=== PATIENT | female | born 1945 | race Caucasian/White ===

== ENCOUNTER 2023-09-23 09:34 | Outpatient (CLI) | payer MEDICARE, MEDICAID, SELFPAY ==
--- NOTE | ~2023-09-23 | US_ITS ---
EXAMINATION: US biopsy lymph node DATE: 09/23/2023 10:48 INDICATION: Right neck lymphadenopathy. TECHNIQUE: The procedure including the risks, benefits, and alternatives was discussed with the patie nt. Risks discussed included bleeding and infection. The patient understood the risks and agreed to p roceed. The skin overlying the right neck was prepped and draped in usual sterile fashion. Anestheti c was administered with 1% lidocaine subcutaneously. An 18 gauge core biopsy needle was then used to obtain 6 core biopsy specimens under continuous sonographic guidance. The entry site was cleaned and dressed. There were no immediate complications. FINDINGS: Ultrasound images demonstrate the needle in a 10 x 10 x 9 mm spinal accessory chain node in right neck. IMPRESSION: 1. Ultrasound-guided core needle biopsy of a right spinal accessory chain lymph node. Reviewed, dictated and finalized at location A. T OF WAY SUPERVISOR
== END 2023-09-23 09:35 | disposition home or self-care (01) ==
LOC: ANHIMG 09:36
PROVIDERS: PCP Family Medicine; Visit Provider Otolaryngology
DX: R22.1 Localized swelling, mass and lump, neck (principal)
CPT/HCPCS: 38505; 76942; 88108; 88184; 88185; 88305; 88341; 88342; 88364; 88365

== ENCOUNTER 2023-10-02 14:51 | Outpatient (CLI) | payer MEDICARE, MEDICAID, SELFPAY ==
[2023-10-02 15:18] LABS: Basophils Absolute Auto 0.1 K/mm3 (0.0-0.1); Basophils Percent Auto 0.9 % (0.2-1.2); Eosinophils Absolute Auto 0.6 K/mm3 (0-0.3); Eosinophils Percent Auto 6.4 % (0-4.4); Hematocrit 36.1 % (37.0-47.0); Hemoglobin 11.3 g/dL (12.0-15.0); Immature Granulocyte Absolute 0.03 K/mm3 (0.00-0.031); Immature Granulocyte Percent A 0.3 % (0-0.5); Lymphocytes Absolute Auto 2.34 K/mm3 (0.9-3.2); Lymphocytes Percent Auto 25.1 % (18.3-44.2); Mean Corpuscular HGB Conc 31.3 g/dl (32-36); Mean Corpuscular Hemoglobin 30.5 pg (26-34); Mean Corpuscular Volume 97.3 fl (80-100); Mean Platelet Volume 8.9 fl (7.4-10.4); Monocytes Absolute Auto 0.7 K/mm3 (0.1-0.6); Monocytes Percent Auto 7.2 % (2.6-8.5); Neutrophils Absolute Auto 5.6 K/mm3 (1.3-6.7); Neutrophils Percent Auto 60.1 % (45.5-73.1); Platelet Count Result 384 k/mm3 (150-375); Red Blood Count 3.71 M/mm3 (4.2-5.4); Red Cell Distribution Width 14.6 % (11.5-14.5); White Blood Count 9.3 K/mm3 (4.5-10.0)
[2023-10-02 17:07] LABS: Alanine Aminotransferase 14 U/L (6-35); Albumin Level 3.5 g/dL (3.5-5.1); Alkaline Phosphatase 97 U/L (38-126); Anion Gap 2 mmol/L (8-16); Aspartate Amino Transferase 24 U/L (14-36); Bilirubin,Total 0.4 mg/dL (0.2-1.3); Blood Urea Nitrogen 16 mg/dL (7-17); Carbon Dioxide 27 mmol/L (22-30); Chloride 108 mmol/L (98-107); Estimated Glomerular Filt Rate > 60; Glucose 93 mg/dL (65-110); Lactate Dehydrogenase 188 U/L (120-246); Potassium 4.6 mmol/L (3.4-5.0); Sodium 137 mmol/L (137-145)
== END 2023-10-02 14:52 | disposition home or self-care (01) ==
PROVIDERS: PCP Family Medicine; Visit Provider Internal Medicine Hematology & Oncology
DX: C83.31 Diffuse large B-cell lymphoma, lymph nodes of head, face, and neck (principal)
CPT/HCPCS: 36415; 80053; 83615; 85025; 88184; 88185; 88237; 88271; 88275

== ENCOUNTER 2023-10-08 11:50 | Outpatient (CLI) | payer MEDICARE, MEDICAID, SELFPAY ==
--- NOTE | ~2023-10-08 | PE_ITS ---
EXAMINATION: PET skull to mid thigh DATE: 10/08/2023 14:31 INDICATION: Diffuse B-cell lymphoma. TECHNIQUE: Blood glucose level was 94 mg/dL. 11.322 mCi of 18-fluorodeoxyglucose (18-FDG) was adminis tered i.v. Low dose computed tomography (CT) images were acquired from the base of the brain to the p roximal thighs for attenuation correction and anatomic localization. Automated exposure control was e mployed. Dose-length product (DLP) was 1009 mGy-cm. Positron emission tomography (PET) images were ac quired in the same distribution. COMPARISON: None FINDINGS: Head/neck: There is a 14 mm mass in right parotid gland with increased activity, most likely a lymph node. There is increased activity in bilateral internal jugular, right spinal accessory, and right-si ded mandibular lymph nodes, some of which are enlarged. For example, a right spinal accessory node me asures 1.2 x 1.0 cm with maximum SUV of 37.2. Chest: The lungs demonstrate mild atelectasis. Calcified right lung nodules and calcified right hilar lymph nodes are consistent with old adenomatous disease. No pleural effusion. Cardiomegaly is noted. No pericardial effusion. There is a small sliding hiatal hernia. Abdomen/pelvis/proximal thighs: The liver demonstrates focal steatosis adjacent to the gallbladder fo ssa. The gallbladder, spleen, pancreas, and adrenal glands are normal. There are cysts in the kidneys measuring up to 16 mm on the left. Aortic atherosclerosis is noted. There are no dilated loops of lauren wel. The appendix is normal. There are no pathologically enlarged lymph nodes. There is no free intra peritoneal fluid. There are bilateral hip arthroplasties. IMPRESSION: 1. Cervical lymphadenopathy with increased activity, consistent with lymphoma. Reviewed, dictated and finalized at location E. E JAVA DEVELOPER
[2023-10-08 12:21] LABS: Glucose Point of Care 94 mg/dl (65-105)
== END 2023-10-08 11:51 | disposition home or self-care (01) ==
PROVIDERS: PCP Family Medicine; Visit Provider Internal Medicine Hematology & Oncology
DX: C83.31 Diffuse large B-cell lymphoma, lymph nodes of head, face, and neck (principal); R59.1 Generalized enlarged lymph nodes
CPT/HCPCS: 78815; A9552

== ENCOUNTER 2023-10-29 00:37 | Day surgery (SDC) | payer MEDICARE, MEDICAID, SELFPAY ==
--- NOTE | 2023-10-23 13:32 | PC.NURSE ---
Report to the Outpatient Waiting Room, entrance under the green pavilion located off [facility], at time ___1015____ on date __10/29/23 . Planned Procedure Time: _1215 . Time changes happen often and if your time is changed the preop area will call you the afternoon before. - You and your visitor will be asked to self-screen and do not enter if you have any COVID symptoms. - A mask is optional within the hospital at this time. Patients may have clear liquids (water, carbonated beverages, clear teas, apple juice) until 3 hours prior to surgery(9:15 am) with a maximum of 20 ounces. - No food from midnight until time of surgery - Infants may have breast milk until 4 hours before surgery, infant formula 6 hours prior to surgery. - Children will be allowed to drink immediately following surgery. If applicable, please bring a bottle or sippy cup to assist with drinking. Juice, water, soda, and popsicles are readily available. For infants on formula, please bring formula the day of surgery. Pacifiers are allowed. Take the following medications with a SIP of water the morning of surgery: ___HYDROCODONE IF NEEDED FOR PAIN DO NOT STOP ANY OF YOUR OTHER PRESCRIPTION MEDICATIONS PRIOR TO SURGERY ?EXCEPT THE FOLLOWING Medications to discontinue per physician __HOLD VITAMINS AND SUPPLEMENTS 3 DAYS PRE OP .LAST DOSE 10/25/23____PT STATES SHE IS GOING TO HOLD ASPIRIN (ON HER OWN) LAST DOSE 10/23/23. Date to take last dose Please no make-up, nail albanian, hairspray, perfume, deodorant, or body powder the day of surgery. No jewelry (including any body piercings) or valuables the day of surgery, leave them at home. Please take a shower or bath the night before, or the morning of, surgery with an antibacterial soap. Wear comfortable, loose fitting clothing. Children are encouraged to wear pajamas. - Jewelry must be removed prior to entering the operating room. Rings and piercings that are not removed may be cut off. - The hospital will not accept responsibility for valuables. - Please leave all valuables, including medications, at home the day of surgery. If you are going home after surgery, a licensed driver guide must drive you home. - NO public transportation without another adult if you receive anesthesia. - We recommend that an adult stay with you for 24 hours following discharge. - We also recommend that you do not drive, make important decision, drink alcoholic beverages, or take any drugs that were not prescribed by your health care provider for at least 24 hours after your discharge time. Follow any additional instructions given to you from your surgeon. If you or anyone in your household have experienced Covid symptoms in the past week, please notify your surgeon or the nurse liaison at the phone number below for possible testing. Telephone instructions given to __PT and asked if any additional questions and then verbalized understanding. Patient advised to call surgeon office or pre surgery nurse liaison [phone] if any additional questions.
[2023-10-23 13:40] VITALS: BMI 29.9
--- NOTE | 2023-10-27 15:01 | PM.IMHP ---
H&P: HPI History of Present Illness Date/Time: 10/27/23 15:01 Chief Complaint: Lymphoma/lymphadenopathy Narrative: planned procedure Review of Systems Review of Systems: All systems reviewed & are unremarkable except as noted in HPI and below [facility] Surgical History Surgical History H/O: hysterectomy History of hip replacement, total History of left knee replacement Family History Family History Mother Thyroid disorder Other Family history of arthritis Social History Social History Smoking status: Never smoker Alcohol intake: never Substance use: never Substance use type: does not use Lack of Transportation: No Lack of Food: Never True Current Housing: I Have Housing Concerned About Future Housing: No Difficulty Paying Gas/Electric Bills: No Difficulty Paying for Meds: No Currently Unemployed: No Education: Associate Degree Difficulty w/ Childcare or Family Care: No Living arrangements: alone Spiritual care concerns: No Meds Home Medications and Allergies Home Medications Medication Instructions Recorded Confirmed Type aspirin 81 mg chewable tablet 81 mg PO DAILY 08/28/23 10/25/23 History (Prasanna Chewable Low Dose Aspirin) citalopram 40 mg tablet 40 mg PO HS 08/28/23 10/25/23 History estradiol 2 mg tablet 2 mg PO DAILY 08/28/23 10/25/23 History hydrocodone 5 mg-acetaminophen 325 2 tablet PO DAILY PRN Pain 08/28/23 10/25/23 History mg tablet meloxicam 15 mg tablet 15 mg PO DAILY 08/28/23 10/25/23 History trazodone 100 mg tablet 100 mg PO QHS PRN Insomnia 08/28/23 10/25/23 History multivitamin 1 tablet PO DAILY 10/23/23 10/25/23 History multivitamin with minerals 1 tablet PO DAILY 10/23/23 10/25/23 History (Hair,Skin and Nails tablet) Allergies Allergy/AdvReac Type Severity Reaction Status Date / Time No Known Allergies Allergy Verified 10/25/23 10:25 Exam Narrative: bilateral neck lymphadenopathy right greater than left Assessment and Plan Assessment and plan (1) Lymphoma: Code(s): C85.90 - Non-Hodgkin lymphoma, unspecified, unspecified site Status: Acute Assessment and Plan: ?plan will be OR for right-sided excisional biopsy lymph node.? Risks discussed including paralysis of lip via injury to marginal mandibular nerve will go for a 2b 2a lymph node as well as damage the greater auricular.? Possible need for drain postoperative bleeding infection damage to surrounding structures.? Patient voiced understanding of these risks and agreed. damage to any structure the clavicles by myself. Damage to any structure in the injection and maintenance of anesthesia including vocal cord paralysis. (2) Lymphadenopathy: Code(s): R59.1 - Generalized enlarged lymph nodes Status: Acute
--- NOTE | 2023-10-28 15:28 | WPDANESEPPF ---
Anes - Initial Pre Proc Eval Procedure: Operation Date: 10/29/23 09:00 Proposed Procedures p Right Sided Cervical Lymph Node Excision - Desmond Bolden MD Date/Time: 10/28/23 15:28 Surgeon: Desmond Bolden MD Pre Op Diagnosis: lymphoma Patient Data Age: 78 Gender: F Height: 1.57 m Weight: 74.45 kg Allergies Allergy/AdvReac Type Severity Reaction Status Date / Time No Known Allergies Allergy Verified 10/29/23 08:26 Home Medications Medication Instructions Recorded Confirmed Type aspirin 81 mg chewable tablet 81 mg PO DAILY 08/28/23 10/29/23 History (Prasanna Chewable Low Dose Aspirin) citalopram 40 mg tablet 40 mg PO HS 08/28/23 10/25/23 History estradiol 2 mg tablet 2 mg PO DAILY 08/28/23 10/25/23 History hydrocodone 5 mg-acetaminophen 325 2 tablet PO DAILY PRN Pain 08/28/23 10/25/23 History mg tablet meloxicam 15 mg tablet 15 mg PO DAILY 08/28/23 10/25/23 History trazodone 100 mg tablet 100 mg PO QHS PRN Insomnia 08/28/23 10/25/23 History multivitamin 1 tablet PO DAILY 10/23/23 10/29/23 History multivitamin with minerals 1 tablet PO DAILY 10/23/23 10/25/23 History (Hair,Skin and Nails tablet) amoxicillin 500 mg capsule 500 mg PO ONCE 10/29/23 10/29/23 History oxycodone 5 mg tablet 5 mg PO Q12H PRN pain #10 tabs 10/29/23 Rx Patient hx anesthesia problems: none Family hx anesthesia problems: none Results Review: All pre-operative results and documents have been reviewed as part of the pre-operative evaluation. [facility] Past Medical History Medical History (Updated 10/29/23 @ 11:37 by Desmond Bolden MD) Anxiety Chronic, continuous use of opioids hydrocodone Lymphoma Surgical History Surgical History H/O: hysterectomy History of hip replacement, total History of left knee replacement Family History Family History Mother Thyroid disorder Other Family history of arthritis Social History Social History Smoking status: Never smoker Alcohol intake: never Substance use: never Substance use type: does not use Lack of Transportation: No Lack of Food: Never True Current Housing: I Have Housing Concerned About Future Housing: No Difficulty Paying Gas/Electric Bills: No Difficulty Paying for Meds: No Currently Unemployed: No Education: Associate Degree Difficulty w/ Childcare or Family Care: No Living arrangements: alone Spiritual care concerns: No Anes - Eval Final PreProcedure Day of Procedure 10/28/23 15:28 Patient weight: obese Heart: regular rate and rhythm Lungs: clear to auscultation Airway: Mallampati scale class II Neurological: alert and oriented Last oral intake: >/= 8 hours ASA classification: III Emergent: no Anesthetic plan: proceed Anesthesia type and monitoring: general ETT and standard monitoring Results Review: All pre-operative results and documents have been reviewed as part of the pre-operative evaluation. Informed Consent: The patient's anesthetic plan and its attendant risks and benefits were discussed with the patient/family/POA. Questions were solicited and answers provided to the satisfaction of the patient/family/POA.
[2023-10-29] VITALS (12 sets, daily range): BP systolic 112–154; BP diastolic 58–90; PULSE 69–83; RESP 14–21; TEMP 36.2–36.7; O2SAT 92–98
--- NOTE | 2023-10-29 07:17 | WPDHPUPDATE1 ---
History and Physical Update Update Date/Time: 10/29/23 07:17 History and Physical has been reviewed, including an updated exam of the patient. There are NO changes in the patient's condition. Risks, benefits, and alternatives have been discussed and questions answered. Patient agrees to proceed with procedure.
[2023-10-29] MEDS: LACTATED RINGERS 1,000 ML 30 ML IV CONT (07:35)
[2023-10-29] MEDS: ceFAZolin 2 GM/D5W 50 ML 2 GM/50 ML BAG IVPB (09:56)
[2023-10-29] MEDS: LIDO 1%/EPINEPHRINE 1:100,000 50 ML VIAL INFILTRATE (10:02)
--- NOTE | 2023-10-29 11:38 | P.OP_ITS ---
Procedure Note - Detailed Date of Procedure 10/29/23 Pre-op Diagnosis lymphoma Post-op Diagnosis Same Procedure Performed Right-sided excisional biopsy of lymph node Surgeon Desmond Bolden MD Anesthesia General Indications see above Findings large matted mass of lymphoma in the right eye was about level [address] the 3 technically. Excised about 0 10 x 15 mm cube of tissue for pathologic analysis Description of Procedure patient identified consent verified preop. Patient brought to the operating room. CT scan personally reviewed immediately before surgery. Patient prepped draped position intubated procedure confirmed 2nd time-out performed. Decision was made to after level 3/2 a lymph node given proximity to skin as well as inferior aspect to marginal mandibular nerve in anterior aspect 2 greater aur icular nerve. 4 cm incision made with 15 blade Bovie electrocautery lysed dissect down to the platysma. The skeletal muscle the platysma directly above the lymphoma was stuck to it. Essentially a core was made several cm across dissecting down through the fat platysma into the lymphoma. Once this portion was excised the decision made to excise more of the lymph node deep to the previous resection and other 5 x 5 mm was taken of this. At this time the remaining visible lymph node was fairly deep. I discussed the case personally with pathology and the decision was made to close. The wound is copiously irrigated was torqued sterile normal saline. The deep and superficial layers were closed with 3 0 interrupted Vicryl sutures. Of note the platysma was absent just below the skin on closure because it was adherent to the lymphoma previously and was sent EN bloc. Total blood loss about 5 cc. Care the patient given back to Anesthesiology. Skin glue was placed on the skin a pressure dressing was applied. Patient taken to PACU. Postoperatively I personally examined the patient and her marginal mandibular nerve is intact. Estimated Blood Loss 5 Drains No Packing No Pathology None sent Complications No immediate complications Condition Stable Disposition PACU [facility] Billing Surgery - Charge Forward: Surgery Billing
[2023-10-29] MEDS: fentaNYL CITRATE INJ (*CRX) 100 MCG/2 ML VIAL 25 MCG IV PUSH ×2 (12:10→12:19)
--- NOTE | 2023-10-29 13:27 | SUR.OPER ---
specimen sent with ANTONIETTA Briseno and received in pathology by Eren
== END 2023-10-29 14:10 | disposition home or self-care (01) ==
PROVIDERS: PCP Family Medicine; Visit Provider Otolaryngology
PROC: (CPT 38510; principal; 2023-10-29 09:00)
DX: L04.0 Acute lymphadenitis of face, head and neck (principal); F41.9 Anxiety disorder, unspecified; Z79.891 Long term (current) use of opiate analgesic; Z79.82 Long term (current) use of aspirin; E66.9 Obesity, unspecified; Z68.29 Body mass index [BMI] 29.0-29.9, adult
CPT/HCPCS: 38510; 88305; J0690; J2405; J2704; J3010; J7120

== ENCOUNTER 2023-11-29 06:46 | Day surgery (SDC) | payer MEDICARE, MEDICAID, SELFPAY ==
[2023-11-21 15:02] VITALS: BMI 29.4
--- NOTE | 2023-11-21 15:23 | PC.NURSE ---
Report to the Outpatient Waiting Room, entrance under the green pavilion located off [facility], at time __0600____ on date _11/29/23___. Planned Procedure Time: ___07 . Time changes happen often and if your time is changed the preop area will call you the afternoon before. - You and your visitor will be asked to self-screen and do not enter if you have any COVID symptoms. - A mask is optional within the hospital at this time. Patients may have clear liquids (water, carbonated beverages, clear teas, apple juice) until 3 hours prior to surgery (0430 AM) with a maximum of 20 ounces. - No food from midnight until time of surgery - Infants may have breast milk until 4 hours before surgery, formula 6 hours prior to surgery. - Children will be allowed to drink immediately following surgery. If applicable, please bring a bottle or sippy cup to assist with drinking. Juice, water, soda, and popsicles are readily available. For infants on formula, please bring formula the day of surgery. Pacifiers are allowed. Take the following medications with a SIP of water the morning of surgery: PAIN PILL IF NEEDED DO NOT STOP ANY OF YOUR OTHER PRESCRIPTION MEDICATIONS PRIOR TO SURGERY ?EXCEPT THE FOLLOWING Medications to discontinue per physician __MELOXICAM PER DR. OLIVER'S INSTRUCTIONS, MULTIVITAMIN/SUPPLEMENTS 3 DAYS PRIOR TO SURGERY_ Date to take last dose____11/25/23 Please no make-up, nail yakut, hairspray, perfume, deodorant, or body powder the day of surgery. No jewelry (including any body piercings) or valuables the day of surgery, leave them at home. Please take a shower or bath the night before, or the morning of, surgery with an antibacterial soap. Wear comfortable, loose fitting clothing. Children are encouraged to wear pajamas. - Jewelry must be removed prior to entering the operating room. Rings and piercings that are not removed may be cut off. - The hospital will not accept responsibility for valuables. - Please leave all valuables, including medications, at home the day of surgery. If you are going home after surgery, a licensed bulk tank driver must drive you home. - NO public transportation without another adult if you receive anesthesia. - We recommend that an adult stay with you for 24 hours following discharge. - We also recommend that you do not drive, make important decision, drink alcoholic beverages, or take any drugs that were not prescribed by your health care provider for at least 24 hours after your discharge time. For Pediatric surgeries, we recommend two adults accompany the child home. Follow any additional instructions given to you from your surgeon. If you or anyone in your household have experienced Covid symptoms in the past week, please notify your surgeon or the nurse liaison at the phone number below for possible testing. Telephone instructions given to ____PT and asked if any additional questions and then verbalized understanding. Patient advised to call surgeon office or pre surgery nurse liaison [phone] if any additional questions.
[2023-11-29] VITALS (10 sets, daily range): BP systolic 131–164; BP diastolic 51–81; PULSE 70–95; RESP 14–22; TEMP 36.9–37.4; O2SAT 92–100
--- NOTE | ~2023-11-29 | XR_ITS ---
EXAMINATION: XR fl guide central line place DATE: 11/29/2023 08:46 INDICATION: Port catheter placement TECHNIQUE: 2 fluoroscopic images of the lateral chest were obtained during procedure performed by Dr. Rubio. Radiologist was not present for the imaging or procedure. The amount of fluoroscopy time used during this procedure was 0.5 minutes. COMPARISON: None. FINDINGS: Images demonstrate a wire for placement of the catheter extending from the left subclavian vein into the inferior vena cava. Subsequent image demonstrates the tip of the placed catheter projecting over the caudal superior vena cava. IMPRESSION: 1. Fluoroscopy utilized during left subclavian central venous catheter placement with distal tip at t he caudal superior vena cava and the final image. See procedure note for further detail. Reviewed, dictated and finalized at location A. AYS CONTROL SPECIALIST IMPRESSION: 1. Fluoroscopy utilized during left subclavian central venous catheter placemen t with distal tip at the caudal superior vena cava and the final image. See pro cedure note for further detail.
--- NOTE | ~2023-11-29 | XR_ITS ---
EXAMINATION: XR chest port-a-cath/central DATE: 11/29/2023 08:46 INDICATION: Port catheter placement TECHNIQUE: frontal view of the chest was obtained. COMPARISON: None FINDINGS: Left subclavian central venous port catheter with distal tip at the caudal superior vena cava. Streak y and bandlike opacities in both lungs with configuration favoring atelectasis/scarring over pneumoni a. No pleural effusion or pneumothorax. The cardiomediastinal silhouette is normal. Mild S-shaped tho racic curvature with moderate to severe spondylosis. IMPRESSION: 1. Left subclavian central venous port catheter tip at the caudal superior vena cava. 2. Bilateral streaky and bandlike opacities and favor atelectasis over pneumonia. Reviewed, dictated and finalized at location A. GER WHOLESALE IMPRESSION: 1. Left subclavian central venous port catheter tip at the caudal superior vena cava. 2. Bilateral streaky and bandlike opacities and favor atelectasis over pneumoni a.
[2023-11-29] MEDS: LACTATED RINGERS 1,000 ML 30 ML IV CONT ×2 (06:44→09:09)
[2023-11-29 06:57] LABS: INR 1.1; Prothrombin Time 14.5 Seconds (11.1-14.7)
[2023-11-29 06:58] LABS: Partial Thromboplastin Time 41.8 SECONDS (22.3-36.8)
--- NOTE | 2023-11-29 07:17 | WPDANESEPPF ---
Anes - Initial Pre Proc Eval Procedure: Operation Date: 11/29/23 07:30 Proposed Procedures p Insertion Gautam Cath - Sony Rubio MD Date/Time: 11/29/23 07:17 Surgeon: Sony Rubio MD Pre Op Diagnosis: diffuse large b-cell lymphoma Patient Data Age: 78 Gender: F Height: 1.57 m Weight: 73 kg Allergies Allergy/AdvReac Type Severity Reaction Status Date / Time No Known Allergies Allergy Verified 11/29/23 06:24 Home Medications Medication Instructions Recorded Confirmed Type aspirin 81 mg chewable tablet 81 mg PO DAILY 08/28/23 11/29/23 History (Prasanna Chewable Low Dose Aspirin) citalopram 40 mg tablet 40 mg PO HS 08/28/23 11/29/23 History estradiol 2 mg tablet 2 mg PO DAILY 08/28/23 11/29/23 History hydrocodone 5 mg-acetaminophen 325 2 tablet PO DAILY PRN Pain 08/28/23 11/22/23 History mg tablet meloxicam 15 mg tablet 15 mg PO DAILY 08/28/23 11/29/23 History trazodone 100 mg tablet 100 mg PO QHS PRN Insomnia 08/28/23 11/22/23 History multivitamin 1 tablet PO DAILY 10/23/23 11/29/23 History multivitamin with minerals 1 tablet PO DAILY 10/23/23 11/29/23 History (Hair,Skin and Nails tablet) oxycodone 5 mg tablet 5 mg PO Q12H PRN pain #10 tabs 10/29/23 11/22/23 Rx cyanocobalamin (vitamin B-12) 500 500 mcg PO DAILY 11/21/23 11/29/23 History mcg tablet ferrous sulfate 325 mg (65 mg 325 mg BID 11/21/23 11/29/23 History iron) tablet (iron) Laboratory Tests 11/29/23 06:33 PT 14.5 Seconds (11.1-14.7) INR 1.1 APTT 41.8 H SECONDS (22.3-36.8) Patient hx anesthesia problems: none Family hx anesthesia problems: none Results Review: All pre-operative results and documents have been reviewed as part of the pre-operative evaluation. [facility] Past Medical History Medical History (Updated 10/29/23 @ 11:37 by Desmond Bolden MD) Anxiety Chronic, continuous use of opioids hydrocodone Lymphoma Surgical History Surgical History H/O: hysterectomy History of hip replacement, total History of left knee replacement Family History Family History Mother Thyroid disorder Other Family history of arthritis Social History Social History Smoking status: Never smoker Second hand tobacco smoke exposure: No Alcohol intake: never Substance use: never Substance use type: does not use Lack of Transportation: No Lack of Food: Never True Current Housing: I Have Housing Concerned About Future Housing: No Difficulty Paying Gas/Electric Bills: No Difficulty Paying for Meds: No Currently Unemployed: No Education: Associate Degree Difficulty w/ Childcare or Family Care: No Living arrangements: alone Spiritual care concerns: No Anes - Eval Final PreProcedure Day of Procedure 11/29/23 07:17 Patient weight: normal Heart: regular rate and rhythm Lungs: clear to auscultation Airway: Mallampati scale class III Neurological: alert and oriented Last oral intake: >/= 8 hours ASA classification: III Emergent: no Anesthetic plan: proceed Anesthesia type and monitoring: general GIVS and standard monitoring Results Review: All pre-operative results and documents have been reviewed as part of the pre-operative evaluation. Informed Consent: The patient's anesthetic plan and its attendant risks and benefits were discussed with the patient/family/POA. Questions were solicited and answers provided to the satisfaction of the patient/family/POA.
--- NOTE | 2023-11-29 07:27 | PM.IMHP ---
H&P: HPI History of Present Illness Date/Time: 11/29/23 07:27 Chief Complaint: Needs port placed for chemo tx. Narrative: Pt recently dx with lymphoma after right neck LN biopsy. Presents now for placement of portacatheter for starting chemo tx next week. No prior hx of port or central line placement. Review of Systems Review of Systems: The remainder of the review of systems to include constitutional, HEENT, cardiovascular, respiratory, GI, , integumentary, musculoskeletal, endocrine, immunologic, hematologic, psychiatric, and neurologic are all negative except for which is mentioned above in the HPI. [facility] Past Medical History Medical History Anxiety Chronic, continuous use of opioids hydrocodone Lymphoma Surgical History Surgical History H/O: hysterectomy History of hip replacement, total History of left knee replacement Family History Family History Mother Thyroid disorder Other Family history of arthritis Social History Social History Smoking status: Never smoker Second hand tobacco smoke exposure: No Alcohol intake: never Substance use: never Substance use type: does not use Lack of Transportation: No Lack of Food: Never True Current Housing: I Have Housing Concerned About Future Housing: No Difficulty Paying Gas/Electric Bills: No Difficulty Paying for Meds: No Currently Unemployed: No Education: Associate Degree Difficulty w/ Childcare or Family Care: No Living arrangements: alone Spiritual care concerns: No Meds Home Medications and Allergies Home Medications Medication Instructions Recorded Confirmed Type aspirin 81 mg chewable tablet 81 mg PO DAILY 08/28/23 11/29/23 History (Prasanna Chewable Low Dose Aspirin) citalopram 40 mg tablet 40 mg PO HS 08/28/23 11/29/23 History estradiol 2 mg tablet 2 mg PO DAILY 08/28/23 11/29/23 History hydrocodone 5 mg-acetaminophen 325 2 tablet PO DAILY PRN Pain 08/28/23 11/22/23 History mg tablet meloxicam 15 mg tablet 15 mg PO DAILY 08/28/23 11/29/23 History trazodone 100 mg tablet 100 mg PO QHS PRN Insomnia 08/28/23 11/22/23 History multivitamin 1 tablet PO DAILY 10/23/23 11/29/23 History multivitamin with minerals 1 tablet PO DAILY 10/23/23 11/29/23 History (Hair,Skin and Nails tablet) oxycodone 5 mg tablet 5 mg PO Q12H PRN pain #10 tabs 10/29/23 11/22/23 Rx cyanocobalamin (vitamin B-12) 500 500 mcg PO DAILY 11/21/23 11/29/23 History mcg tablet ferrous sulfate 325 mg (65 mg 325 mg BID 11/21/23 11/29/23 History iron) tablet (iron) Allergies Allergy/AdvReac Type Severity Reaction Status Date / Time No Known Allergies Allergy Verified 11/29/23 06:24 Exam Const: General: comfortable and no acute distress Eyes: General: appearance normal, both eyes and all related structures Sclera: sclerae normal Pupils: Equal, round and reactive pupils present Neck: Neck: supple and no JVD Other: Healing righ neck incison, no redness or drainage. Resp: Effort & Inspection: normal respiratory effort Auscultation: clear to auscultation bilaterally Cardio: Rate: regular rate Rhythm: regular rhythm GI: GI Palp: Yes Soft to palpation, No Firmness to palpation present (GI), No Tenderness to palpation present (GI), No Guarding due to palpation present (GI) and No Hernia present Skin: General skin exam: normal color and no rashes or lesions noted Neuro: General: gait normal Speech: normal speech Motor exam (neuro): 5/5 motor strength present throughout Extrem: General: normal to inspection Psych: Mental Status: mental status grossly normal Affect: normal affect Assessment and Plan Assessment and plan (1) Lymphoma: Code(s): C85.90 - Non-Hodgkin lymphoma, unspecified,
--- NOTE | 2023-11-29 07:31 | WPDHPUPDATE1 ---
History and Physical Update Update Date/Time: 11/29/23 07:31 History and Physical has been reviewed, including an updated exam of the patient. There are NO changes in the patient's condition. Risks, benefits, and alternatives have been discussed and questions answered. Patient agrees to proceed with procedure.
[2023-11-29] MEDS: ceFAZolin 2 GM/D5W 50 ML 2 GM/50 ML BAG IVPB (07:36)
[2023-11-29] MEDS: HEPARIN SODIUM 5,000 UNITS/ML VIAL 5000 UNITS IRRIGATION (07:53)
[2023-11-29] MEDS: HEPARIN SODIUM 1,000 UNITS/ML VIAL 1000 UNITS IV PUSH (07:55)
[2023-11-29] MEDS: BUPivacaine HCL 0.5% PF 30 ML VIAL INFILTRATE (07:55)
--- NOTE | 2023-11-29 08:39 | PM.OP ---
Procedure Note - Brief Procedure Note - Brief Date of procedure: 11/29/23 diffuse large b-cell lymphoma Post-op diagnosis: Same Procedure performed: The left subclavian vein single-lumen port catheter with intraoperative fluoroscopy. Surgeon: Sony Rubio MD Anesthesia: MAC Implants: 9.6 [place] single catheter attached to Smart Port Estimated blood loss (mL): 15 Drains: No Packing: No Pathology: None sent Complications: No immediate complications Condition: Stable Disposition: PACU
--- NOTE | 2023-11-30 11:13 | W.PM.PROC2 ---
Procedure Note - Detailed Date of Procedure 11/29/23 Pre-op Diagnosis diffuse large b-cell lymphoma Post-op Diagnosis Same Procedure Performed Placement of left subclavian vein single-lumen port a catheter with intraoperative fluoroscopy. Surgeon Sony Rubio MD Anesthesia MAC Indications Patient is a 78-year-old female who was recently diagnosed with lymphoma. She needs placement of ambar catheter to start chemotherapy treatments. Findings None. Description of Procedure After informed consent was obtained patient brought to the operating room where she was placed supine position the IV sedation with LMA mask was administered. The bilateral upper anterior neck and chest was then prepped and draped usual sterile fashion. A time-out was then performed correctly identifying the patient as well as procedure to be performed. She was given perioperative IV antibiotics. I approach placement of the ambar catheter into the left subclavian vein. 1% lidocaine mixed with 0.5% Marcaine was injected just below the medial 1/3 of the left clavicle. A transverse incision was then made the scalpel and dissection was carried down through the subcutaneous tissues till the anterior pectoralis fascia was encountered. A blunt finger electrocautery dissection I created the subcu port pocket below the incision. I then advanced a long 18gauge needle percutaneously cannulated the left subclavian vein with the patient in the Trendelenburg position. There was prompt return of dark venous appearing blood. A guidewire was advanced through the needle into the left subclavian vein subsequently into the right atrium of the heart. The needle was removed then removed and intraoperative fluoroscopy was used to confirm the proper placement of the guidewire. I then advanced a dilator breakaway sheath over the guidewire and then removed the guidewire and dilator leaving the sheath in place. A 9.6 [place] single-lumen catheter was then advanced through the sheath into the right atrium of the heart. The sheath was torn away leaving the catheter in place. Then once again with intraoperative fluoroscopy I visualized tip of the catheter and pulled back external to the chest wall until the tip was in the distal superior vena cava. The catheter was then cut the appropriate length the skin level and then attached to the Smart Port. The port was then secured in subcu port pocket on 3 sides utilizing 3-0 Prolene sutures. The port was then accessed and aspirated blood easily and it was then flushed with heparinized saline solution. The port pocket was irrigated sterile saline solution hemostasis was good. I then closed the port pocket utilizing interrupted 3-0 Vicryl sutures in subcutaneous tissues. The skin edges were approximated utilizing a running subcuticular 4 Monocryl suture. The incisions were then cleaned the skin glue sterile dressings were applied. The port was then accessed 1 last time percutaneously and in aspirated blood easily and was flushed with 5000units of heparin IV. The patient tolerated the procedure well no complications. All sponges, needles, and instrument counts were correct at the end procedure. EBL was _10__cc. The patient was awakened and taken to recovery in stable and satisfactory condition. Postprocedure chest x-ray was I then the procedure and it was good with no evidence of pneumothorax and tip of the catheter in proper position distal superior vena cava. Implants 9.6 [place] single-lumen catheter attached to Smart Port Estimated Blood Loss 10 Drains No Packing No Pathology None sent Complications No immediate complications Condition Stable Disposition PACU [facility] Billing Surgery - Charge Forward: Surgery Billing
== END 2023-11-29 10:40 | disposition home or self-care (01) ==
PROVIDERS: PCP Family Medicine; Visit Provider Surgery
PROC: (CPT 36561; principal; 2023-11-29 07:30)
DX: C83.30 Diffuse large B-cell lymphoma, unspecified site (principal); F41.9 Anxiety disorder, unspecified; Z79.891 Long term (current) use of opiate analgesic; Z79.82 Long term (current) use of aspirin
CPT/HCPCS: 36561; 36415; 77001; 85610; 85730; C1788; J0690; J1100; J1644; J2371; J2405; J2704; J3010; J7030; J7120

== ENCOUNTER 2024-01-31 07:26 | Outpatient (RCR) | payer MEDICARE, MEDICAID, SELFPAY ==
[2024-01-31] VITALS (10 sets, daily range): BP systolic 111–136; BP diastolic 58–77; PULSE 66–77; RESP 14–16; TEMP 36.5–36.9; O2SAT 95–100
[2024-01-31] MEDS: SODIUM CHLORIDE 0.9% IV 250 ML 30 ML IV CONT (08:10)
[2024-01-31] MEDS: diphenhydrAMINE HCl CAP 25 MG CAPSULE PO (08:19)
[2024-01-31] MEDS: ACETAMINOPHEN 325 MG TABLET 650 MG PO (08:19)
[2024-01-31] MEDS: FUROSEMIDE INJ 40 MG/4 ML VIAL 20 MG IV PUSH (11:15)
[2024-01-31] MEDS: HEPARIN SODIUM LOCK FLUSH 500 UNITS/5 ML VIAL (14:50)
== END 2024-04-30 23:59 | disposition home or self-care (01) ==
LOC: ANHCPCTRAN 07:26
PROVIDERS: PCP Family Medicine; Visit Provider Internal Medicine Hematology & Oncology
DX: C83.30 Diffuse large B-cell lymphoma, unspecified site (principal)
CPT/HCPCS: 36415; 36430; 86850; 86900; 86901; 86920; 96374; A9270; J1642; J1940; J7050; P9016

== ENCOUNTER 2024-03-16 08:19 | Outpatient (CLI) | payer MEDICARE, SELFPAY ==
[2024-03-16 09:17] LABS: Hematocrit 23.9 % (37.0-47.0); Hemoglobin 7.4 g/dL (12.0-15.0); Mean Corpuscular Hemoglobin 34.7 pg (26-34); Mean Corpuscular Volume 112.2 fl (80-100); Mean Platelet Volume 9.6 fl (7.4-10.4); Platelet Count Result 167 k/mm3 (150-375); Red Blood Count 2.13 M/mm3 (4.2-5.4); Red Cell Distribution Width 24.9 % (11.5-14.5); White Blood Count 7.3 K/mm3 (4.5-10.0)
[2024-03-16] MEDS: ACETAMINOPHEN 325 MG TABLET 650 MG PO (10:04)
[2024-03-16] MEDS: diphenhydrAMINE HCl CAP 25 MG CAPSULE PO (10:05)
[2024-03-16] MEDS: SODIUM CHLORIDE 0.9% IV 250 ML 30 ML IV CONT (10:05)
[2024-03-16 11:18] VITALS: BP 114/64; PULSE 76; RESP 16; TEMP 36.6; O2SAT 94
[2024-03-16 11:33] VITALS: BP 106/60; PULSE 81; RESP 16; TEMP 37.1; O2SAT 95
[2024-03-16 12:33] VITALS: BP 126/63; PULSE 75; RESP 16; TEMP 36.9; O2SAT 96
[2024-03-16 13:33] VITALS: BP 137/64; PULSE 78; RESP 16; TEMP 37.1; O2SAT 95
[2024-03-16 14:30] VITALS: BP 131/64; PULSE 82; RESP 16; TEMP 37.1; O2SAT 97
[2024-03-16] MEDS: HEPARIN SODIUM LOCK FLUSH 500 UNITS/5 ML VIAL IV PUSH (14:45)
== END 2024-03-16 08:20 | disposition home or self-care (01) ==
LOC: ANHCPCTRAN 08:20
PROVIDERS: PCP Family Medicine; Visit Provider Nurse Practitioner Family
DX: C83.30 Diffuse large B-cell lymphoma, unspecified site (principal)
CPT/HCPCS: 36415; 36430; 85027; 86850; 86900; 86901; 86923; A9270; J1642; J1940; J7050; P9016

== ENCOUNTER 2024-03-17 10:59 | Outpatient (CLI) | payer MEDICARE, SELFPAY ==
--- NOTE | 2024-03-17 | ECHO_ITS ---
Patient Info Name: Chyna Diaz Age: 78 years : 1945 Gender: Female Ht: 62 in Wt: 155 lbs BSA: 1.78 m2 HR: 68 bpm BP: 146 / 83 mmHg Heart Rhythm: Sinus Rhythm Technical Quality: Good Exam Date: 03/17/2024 11:26 AM Exam Location: Echo Lab Patient Status: Outpatient Admit Date: 03/17/2024 Staff Ordering Physician: Elio Heaton MD Bakery Worker: Jose Blanco SARANYA Attending Provider: Elio Heaton MD Referring Physician: Sudarshan MCKEON; Exam Type: CA echo doppler color flow Study Info Indications - Large B cell lymphoma c83.30 Complete two-dimensional, color flow and Doppler transthoracic echocardiogram is performed. Summary 1. Left ventricular chamber dimension is mildly enlarged. 2. Left ventricular systolic function is mildly reduced, estimated at 45-50%. 3. The left ventricular diastolic function is grade I diastolic dysfunction. 4. Global longitudinal strain is abnormal at -15 %. 5. Right ventricular systolic function is normal. 6. Left atrial chamber dimension is moderately enlarged. 7. There is moderate mitral valve regurgitation. 8. There is mild tricuspid valve regurgitation. Left Ventricle Left ventricular chamber dimension is mildly enlarged. Left ventricular systolic function is mildly reduced, estimated at 45-50%. There is no increased left ventricular wall thickness. The left ventricular diastolic function is grade I diastolic dysfunction. Global longitudinal strain is abnormal at -15 %. Right Ventricle Right ventricular chamber dimension is normal. Right ventricular systolic function is normal. Left Atria Left atrial chamber dimension is moderately enlarged. Right Atria Right atrial chamber dimension is normal. Atrial Septum Intact interatrial septum visualized by color flow imaging. Aortic Valve The aortic valve is trileaflet. There is mild aortic valve sclerosis. There is no aortic valve stenosis. There is no aortic valve regurgitation. Pulmonic Valve The pulmonic valve is not well visualized. There is trace pulmonic regurgitation. Mitral Valve There is moderate mitral valve regurgitation. The mitral valve annulus is moderately calcified. Tricuspid Valve There is mild tricuspid valve regurgitation. Pericardium/Pleural There is no pericardial effusion. Inferior Vena Cava Normal inferior vena cava with >50% collapse upon inspiration consistent with normal right atrial pressure, 3 mmHg. Aorta The aortic root size at the sinus of Valsalva is normal. Left Ventricular Outflow Tract Name Value Normal LVOT 2D LVOT Diameter 1.9 cm LVOT Doppler LVOT Peak Gradient 3 mmHg LVOT Mean Gradient 2 mmHg LVOT VTI 23 cm LVOT VTI/AV VTI Ratio 0.7 LVOT Stroke Volume 64 ml LVOT CO 3.8 l/min LVOT CI 2.1 l/min/m2 Pulmonic Valve Name Value Normal RVOT Doppler ----
== END 2024-03-17 11:00 | disposition home or self-care (01) ==
PROVIDERS: PCP Family Medicine; Visit Provider Internal Medicine Hematology & Oncology
DX: C83.30 Diffuse large B-cell lymphoma, unspecified site (principal); I51.89 Other ill-defined heart diseases; I51.7 Cardiomegaly; I34.0 Nonrheumatic mitral (valve) insufficiency; I36.1 Nonrheumatic tricuspid (valve) insufficiency
CPT/HCPCS: 93306

== ENCOUNTER 2024-04-09 09:04 | Outpatient (RCR) | payer MEDICARE, SELFPAY ==
[2024-04-09] MEDS: ACETAMINOPHEN 325 MG TABLET 650 MG PO (10:27)
[2024-04-09] MEDS: diphenhydrAMINE HCl CAP 25 MG CAPSULE PO (10:27)
[2024-04-09] MEDS: SODIUM CHLORIDE 0.9% IV 250 ML 30 ML IV CONT (10:30)
[2024-04-09 10:55] VITALS: BP 126/66; PULSE 70; RESP 16; TEMP 36.8; O2SAT 96
[2024-04-09 11:10] VITALS: BP 130/54; PULSE 73; RESP 16; TEMP 37; O2SAT 99
[2024-04-09 12:10] VITALS: BP 123/69; PULSE 70; RESP 16; TEMP 37.2; O2SAT 99
[2024-04-09 13:10] VITALS: BP 136/68; PULSE 69; RESP 16; TEMP 36.8; O2SAT 99
[2024-04-09 14:00] VITALS: BP 126/70; PULSE 71; RESP 16; TEMP 36.6; O2SAT 99
[2024-04-09] MEDS: HEPARIN SODIUM LOCK FLUSH 500 UNITS/5 ML VIAL (14:05)
== END 2024-07-08 23:59 | disposition home or self-care (01) ==
LOC: ANHCPCTRAN 09:04
PROVIDERS: PCP Family Medicine; Visit Provider Internal Medicine Hematology & Oncology
DX: C83.30 Diffuse large B-cell lymphoma, unspecified site (principal)
CPT/HCPCS: 36415; 36430; 86850; 86900; 86901; 86923; A9270; J1642; J7050; P9016

== ENCOUNTER 2024-04-10 08:50 | Outpatient (CLI) | payer MEDICARE, SELFPAY ==
--- NOTE | ~2024-04-10 | CT_ITS ---
EXAMINATION: CT chest abdomen pelvis w con DATE: 04/10/2024 09:27 INDICATION: Diffuse large B-cell lymphoma TECHNIQUE: Computed tomography (CT) of the chest, abdomen, and pelvis was performed with 100 mL Omnip aque-350 intravenous contrast. Automated exposure control and iterative reconstruction technique were employed. The dose-length product was 964.17 mGy-cm. COMPARISON: PET/CT dated 10/08/2023 FINDINGS: CHEST CT: Left subclavian central venous port catheter with distal tip at the midsuperior vena cava. Couple john cified right lower lobe nodules along with calcified right hilar lymph nodes consistent with old gran ulomatous disease. Mild dependent atelectasis in bilateral lower lobes and mild discoid atelectasis i n the right middle lobe and lingula. No suspicious pulmonary nodules, pneumonia, pulmonary edema or p leural effusion. Heart size is normal. No pericardial effusion. Thoracic aorta is normal in caliber. The previously mildly prominent but normal sized and abnormally FDG avid right supraclavicular lymph nodes have decreased in size now essentially indiscernible. No pathologically enlarged thoracic lymph adenopathy. Mild upper thoracic levocurvature and mild mid thoracic dextrocurvature with severe spond ylosis. ABDOMEN/PELVIS CT: Liver, gallbladder, spleen, pancreas and bilateral adrenal glands are normal. 9 mm rim calcified sple bonnie artery aneurysm at the splenic hilum. Unchanged parapelvic cysts at both kidneys. Bowels includin g the appendix are normal. The bladder and uterus are nearly completely obscured by dense streak chris fact from bilateral total hip arthroplasties. No pathologically enlarged abdominal or pelvic lymphade nopathy. Severe lumbar spondylosis. IMPRESSION: 1. Previously mildly prominent and FDG avid right supraclavicular lymph nodes have decreased in size now essentially indiscernible. No pathologically enlarged thoracic, abdominal or pelvic lymphadenopat hy. 2. 9 mm rim calcified splenic artery aneurysm. Reviewed, dictated and finalized at location B. IMPRESSION: 1. Previously mildly prominent and FDG avid right supraclavicular lymph nodes h ave decreased in size now essentially indiscernible. No pathologically enlarged thoracic, abdominal or pelvic lymphadenopathy. 2. 9 mm rim calcified splenic artery aneurysm.
== END 2024-04-10 08:51 | disposition home or self-care (01) ==
PROVIDERS: PCP Family Medicine; Visit Provider Internal Medicine Hematology & Oncology
DX: C83.30 Diffuse large B-cell lymphoma, unspecified site (principal); I72.8 Aneurysm of other specified arteries
CPT/HCPCS: 71260; 74177; Q9967

== ENCOUNTER 2024-04-21 10:18 | Outpatient (CLI) | payer MEDICARE, SELFPAY ==
--- NOTE | ~2024-04-21 | PE_ITS ---
EXAMINATION: PET skull to mid thigh DATE: 04/21/2024 13:09 INDICATION: Diffuse large B-cell lymphoma. TECHNIQUE: Blood glucose level was 89 mg/dL. 9.650 mCi of 18-fluorodeoxyglucose (18-FDG) was administ ered i.v. Low dose computed tomography (CT) images were acquired from the base of the brain to the pr oximal thighs for attenuation correction and anatomic localization. Automated exposure control was em ployed. Dose-length product (DLP) was 905 mGy-cm. Positron emission tomography (PET) images were acqu ired in the same distribution. COMPARISON: PET/CT 10/08/2023, CT chest, abdomen, and pelvis 04/02/2024 FINDINGS: Head/neck: There is a 15 x 11 mm right internal jugular chain lymph node without increased activity. Chest: There is mild atelectasis bilaterally. A calcified right lung nodule and calcified right hilar lymph nodes are consistent with old granulomatous disease. There is a small left pleural effusion. C ardiomegaly is noted. No pericardial effusion. There is a left subclavian port with tip at superior c avoatrial junction. Abdomen/pelvis/proximal thighs: The liver, gallbladder, spleen, pancreas, adrenal glands, are normal. There are cysts in the kidneys measuring up to 15 mm in the left. There are no dilated loops of olga lidia l. The appendix is normal. There are no pathologically enlarged lymph nodes. There is no free intrape ritoneal fluid. There are bilateral total hip arthroplasties. IMPRESSION: 1. Mildly enlarged right internal jugular chain lymph node without increased activity, consistent wit h treated lymphoma. 2. Small left pleural effusion. Reviewed, dictated and finalized at location E. IMPRESSION: 1. Mildly enlarged right internal jugular chain lymph node without increased ac tivity, consistent with treated lymphoma. 2. Small left pleural effusion.
[2024-04-21 11:08] LABS: Glucose Point of Care 89 mg/dl (65-105)
== END 2024-04-21 10:19 | disposition home or self-care (01) ==
PROVIDERS: PCP Family Medicine; Visit Provider Radiology Radiation Oncology
DX: C83.31 Diffuse large B-cell lymphoma, lymph nodes of head, face, and neck (principal); J90 Pleural effusion, not elsewhere classified
CPT/HCPCS: 78815; A9552

== ENCOUNTER 2024-04-24 10:00 | Outpatient (RCR) | payer MEDICARE, MEDICAID, SELFPAY ==
[2023-11-22 13:37] VITALS: BP 112/86; PULSE 80; TEMP 36.7; O2SAT 97
[2023-11-22 13:39] VITALS: BMI 29.0
--- NOTE | 2023-11-22 13:42 | PDRADONCCN ---
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 RECOMMENDATIONS I had a lengthy discussion with her and her son regarding treatment for limited stage diffuse large B-cell lymphoma including the NCCN (National Comprehensive Cancer Network) treatment guidelines which recommend 3 cycles of R-CHOP followed by an interim restaging PET/CT scan, with subsequent treatment dictated by tumor response. Following a complete response on PET imaging, NCCN guidelines recommend delivery of a 4th cycle of R-CHOP or proceeding with involved site radiation therapy (ISRT) typically to a dose of 30-36 Gy. Patients who do not have a complete response should be considered for biopsy and additional chemotherapy +/- ISRT typically with dose escalation. I described a course of radiation therapy to the bilateral cervical and supraclavicular twyla regions delivered daily M-F over 3.5-4 weeks. I described the simulation procedure, treatment technique, expected outcome, possible acute side-effects, and potential long-term risks of treatment. Specifically, the acute side-effects may include but are not limited to fatigue, localized skin redness/dryness/tanning, dry with/without moist desquamation, oral/pharyngeal mucositis which could interfere with eating, weight loss, decreased and/or thickened saliva, altered taste discrimination, hoarseness, and hair loss. ?Long-term toxicity with the dose utilized for the treatment of lymphoma is less common than when treating primary head and neck cancer, but may include among other things persistent pigmentary changes, persistent hair loss/thinning, persistent hoarseness, chronic dry mouth and/or altered taste, and a rare chance of damage to bone, cartilage and/or soft tissue, as well as possible poor healing after dental extractions. I discussed the importance of routine dental care/cleanings in the setting of dry mouth which she has had for the last 2 years, and she reports that she sees her dentist every 6 months in addition to using Biotene products. She and her son expressed good understanding of the issues discussed, and all of their questions were addressed to their apparent satisfaction. She is scheduled to have a Mediport placed in 1 week and will start chemotherapy soon thereafter. I will see her back in follow-up after her interim PET scan to discuss treatment plans/recommendations. Approximately 55 minutes total time was spent on the patient's consultation today including reviewing her medical records and imaging studies in preparation for the consultation, time spent with the patient including counseling of the patient on treatment recommendations, documentation, and coordination of care. More than half the time was spent discussing treatment options and potential risks and benefits. Thank you for asking me to participate in the care of your patient. Should you have any questions regarding her treatment plans please do not hesitate to call. Meagan Allen Mai, MD This note was transcribed using 'Inmoo', a computerized voice recognition without a human agency sales development associate. This report may or may not have been adjusted for typographical, grammatical and syntax errors. PMFSH - Date/Time Seen 11/22/23 13:42 DATE OF SERVICE: 11/22/2023 DIAGNOSIS Non-Hodgkin's Lymphoma, Diffuse Large B-Cell, Bilateral Cervical Adenopathy Clinical?Stage IIA non-bulky Date of Diagnosis: 11/12/2023 Path:?Diffuse Large B-Cell Non-Hodgkin's Lymphoma Med Onc: Sudarshan Chemotherapy:? 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 She is seen in consultation today at the request of Dr. Heaton for an opin
[2024-04-14 10:02] VITALS: BP 126/68; PULSE 66; TEMP 36.8; O2SAT 97
--- NOTE | 2024-04-14 10:10 | PC.NURSE ---
PET Scan scheduled for 04/21/24, at 1100am, patient is aware of date and time, and verbalized the understanding of the NPO status.
--- NOTE | 2024-04-17 11:37 | P.RADPN_ITS ---
Follow Up Note - Date/Time 04/17/24 11:37 - Interval History RADIATION ONCOLOGY FOLLOW UP DOS: 04/14/24 DIAGNOSIS: 78-year-old woman with clinical stage IIA non-bulky diffuse large B cell non-Hodgkin's lymphoma, with PET/CT imaging demonstrating bilateral cervical lymphadenopathy. She met with my partner Dr. Chavez in 11/2023 who discussed R-CHOP x3 followed by restaging PET and either ISRT or 4th cycle R- CHOP. She received R-CHOP x6 cycles (Dr. Heaton). Restaging CT CAP showed interval response to tx. She returns for follow-up HISTORY & NARRATIVE: Hx as above. Here with daughter. Arrives in wheelchair. No symptoms. Reports neck masses decreased rapidly after starting R-CHOP. Daughter had several questions about imaging and the timing of imaging with relation to chemo. Patient adamant that she is not doing radiation. PHYSICAL EXAMINATION: Vital signs: see RN note ECO General Appearance: The patient is a well-developed, well-nourished female, sitting, in no acute distress. In wheelchair. HEENT: normocephalic, atraumatic. Mucus membranes moist Lungs: Breathing comfortably at rest without wheeze Lymphatics: no palpable cervical, supraclavicular, or axillary lymphadenopathy Skin: warm, dry, no rashes or lesions Neurologic: Patient awake and alert, responds to questions appropriately RADIOLOGY REVIEW: see above ASSESSMENT & PLAN: Hx as above. I am taking over her care from my partner Dr. Chavez. She needs to be restaged. The CT CAP did not image her neck, where the majority of her disease was. I think a PET/CT would be beneficial. Discussed that likely no role for consolidative RT given that she has received R-CHOP x6. Plan PET/CT for restaging. RTC in 2 wk to review results. She knows to contact me with questions or concerns prior to the return visit. Time spent: 30 min Charbel Shelley MD
--- NOTE | 2024-04-24 08:30 | P.RADPN_ITS ---
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 She met with my partner Dr. Chavez in 11/2023 who discussed R-CHOP x3 followed by restaging PET and either ISRT or 4th cycle R- CHOP. She received R-CHOP x6 cycles (Dr. Heaton). Restaging CT CAP showed interval response to tx. Post R-CHOP6 PET/CT showed CR. She returns for follow-up HISTORY & NARRATIVE: Hx as above. Here with her son Arrives in wheelchair. No symptoms. PET/CT completed as below. PHYSICAL EXAMINATION: Vital signs: see RN note ECO General Appearance: The patient is a well-developed, well-nourished female, sitting, in no acute distress. In wheelchair. HEENT: normocephalic, atraumatic. Mucus membranes moist Lungs: Breathing comfortably at rest without wheeze Lymphatics: no palpable cervical, supraclavicular, or axillary lymphadenopathy Skin: warm, dry, no rashes or lesions Neurologic: Patient awake and alert, responds to questions appropriately RADIOLOGY REVIEW: PET/CT 04/21/24 FINDINGS: Head/neck: There is a 15 x 11 mm right internal jugular chain lymph node without increased activity. Chest: There is mild atelectasis bilaterally. A calcified right lung nodule and calcified right hilar lymph nodes are consistent with old granulomatous disease. There is a small left pleural effusion. Cardiomegaly is noted. No pericardial effusion. There is a left subclavian port with tip at superior cavoatrial junction. Abdomen/pelvis/proximal thighs: The liver, gallbladder, spleen, pancreas, adrenal glands, are normal. There are cysts in the kidneys measuring up to 15 mm in the left. There are no dilated loops of bowel. The appendix is normal. There are no pathologically enlarged lymph nodes. There is no free intraperitoneal fluid. There are bilateral total hip arthroplasties. IMPRESSION: 1. Mildly enlarged right internal jugular chain lymph node without increased activity, consistent with treated lymphoma. 2. Small left pleural effusion. ASSESSMENT & PLAN: Hx as above. I am taking over her care from my partner Dr. Chavez. PET/CT showed CR post R-CHOP x6 There is some challenge in determining optimal therapy for her given that she did not have an interim PET. However, she received R-CHOP x6 cycles and had a stage II DLBCL. The patient does not want to pursue any consolidative RT and I think this is reasonable given that she has received R-CHOP x6. There is likely minimal benefit to RT in this setting. She will follow with me on a PRN basis. She will follow primarily with Dr. Heaton. She knows to contact me with questions or concerns prior to the return visit. Time spent: 30 min Charbel Shelley MD
[2024-04-24 10:23] VITALS: BP 120/54; PULSE 74; TEMP 36.6; O2SAT 97
== END 2024-04-24 13:31 ==
LOC: AMCRADONC 10:00
PROVIDERS: PCP Otolaryngology; Visit Provider Radiology Radiation Oncology
DX: C83.31 Diffuse large B-cell lymphoma, lymph nodes of head, face, and neck (principal); Z08 Encounter for follow-up examination after completed treatment for malignant neoplasm; R42 Dizziness and giddiness; J90 Pleural effusion, not elsewhere classified; R53.83 Other fatigue; R68.2 Dry mouth, unspecified; M19.90 Unspecified osteoarthritis, unspecified site; Z96.652 Presence of left artificial knee joint; Z96.649 Presence of unspecified artificial hip joint; Z92.21 Personal history of antineoplastic chemotherapy
CPT/HCPCS: 36415; 80047; 80048; 85025; 99212; G0463

== ENCOUNTER 2024-05-20 14:51 | Inpatient (IN) | payer MEDICARE, SELFPAY ==
[2024-05-20] VITALS (31 sets, daily range): BP systolic 115–147; BP diastolic 38–98; PULSE 65–160; RESP 12–21; TEMP 36.2–36.6; O2SAT 96–100; BMI 28.3
--- NOTE | ~2024-05-20 | US_ITS ---
LEFT UPPER EXTREMITY VENOUS ULTRASOUND Ordering provider: Xochitl Kelley History: . IV infiltration . Comparison: None. FINDINGS: --JUGULAR: Patent and free of thrombus. Normal compressibility, phasic flow and augmentation. --SUBCLAVIAN: Patent and free of thrombus. Normal compressibility, phasic flow and augmentation. --AXILLARY: Patent and free of thrombus. Normal compressibility, phasic flow and augmentation. --BRACHIAL: Patent and free of thrombus. Normal compressibility, phasic flow and augmentation. --CEPHALIC: None compressible. --BASILIC: Patent and free of thrombus. Normal compressibility, phasic flow and augmentation. --RADIAL: Patent and free of thrombus. Normal compressibility, phasic flow and augmentation. --ULNAR: Patent and free of thrombus. Normal compressibility, phasic flow and augmentation. IMPRESSION: None compressible cephalic vein otherwise, No deep vein thrombosis. Reviewed, dictated and finalized at location A.
--- NOTE | ~2024-05-20 | XR_ITS ---
XR chest 2V Ordering provider: Jamilah Teixeira MD History: 79 years Female with . syncope, hx of lymphoma . Comparison: November 29, 2023 FINDINGS: MEDIASTINUM: The cardiac silhouette is slightly enlarged. Left Port-A-Cath with the tip overlying sup erior vena cava. Congestive macarena. LUNGS: No pneumothorax. Interstitial changes are seen bilaterally. Minimal opacification the lower lo bes. Minimal effusion seen in the posterior costophrenic angle OTHER: No free air under the diaphragm. IMPRESSION: Minimal opacification in the lower lobes suggestive of atelectasis versus pneumonia. Bilateral inters titial changes suggestive of pulmonary edema versus pneumonitis.. Minimal pleural effusion seen bilaterally. Reviewed, dictated and finalized at location A. IMPRESSION: Minimal opacification in the lower lobes suggestive of atelectasis versus pneum onia. Bilateral interstitial changes suggestive of pulmonary edema versus pneum onitis.. Minimal pleural effusion seen bilaterally.
--- NOTE | 2024-05-20 14:57 | ECG_ITS ---
Test Date: 2024-05-20 15:14:27 Measurements Intervals [place] Rate: 67 P: 38 NC: 171 QRS: -36 QRSD: 136 T: 174 QT: 470 QTc: 499 Interpretive Statements SINUS RHYTHM LEFT AXIS DEVIATION [QRS AXIS < -30] LEFT BUNDLE BRANCH BLOCK [120+ ms QRS DURATION, 80+ ms Q/S IN V1/V2, 85+ ms R IN I/aVL/V5/V6] No previous ECG available for comparison Electronically Signed On 05-20-2024 17:15:34 CDT by Kortney Dougherty M.D.
--- NOTE | 2024-05-20 15:17 | PC.NURSE ---
This RN attempted to draw blood and obtain ekg on pt. Pt and family initially refusing both ekg and blood draw. Pt educated about importance of ekg and her own decision making, pt agreeable to ekg but not blood work stating she just had blood work done prior to coming to ED and all the results were fine.
--- NOTE | 2024-05-20 15:49 | ED.SYNCOPE ---
HPI - Syncope General Chief Complaint: Syncope Stated Complaint: syncopy Time Seen by Provider: 05/20/24 15:04 History of Present Illness HPI narrative: 79-year-old female presenting with syncope. Patient is coming from cancer center. States that she has been having episodes of passing out. It often happens when she is using the bathroom and bearing down. Today she was going into the cancer center and again had an episode today told her to come to the ER. States that she just feels very lightheaded and feels like she is about to pass out. Denies any pain or shortness of breath. No fevers or leg swelling. States she is concerned that she is dehydrated. Related Data Home Medications Medication Instructions Recorded Confirmed aspirin 81 mg chewable tablet 81 mg PO DAILY 08/28/23 04/29/24 (Prasanna Chewable Low Dose Aspirin) citalopram 40 mg tablet 40 mg PO HS 08/28/23 04/29/24 estradiol 2 mg tablet 2 mg PO DAILY 08/28/23 04/29/24 hydrocodone 5 mg-acetaminophen 325 2 tablet PO DAILY PRN Pain 08/28/23 04/29/24 mg tablet meloxicam 15 mg tablet 15 mg PO DAILY 08/28/23 04/29/24 trazodone 100 mg tablet 100 mg PO QHS PRN Insomnia 08/28/23 04/29/24 multivitamin 1 tablet PO DAILY 10/23/23 04/29/24 multivitamin with minerals 1 tablet PO DAILY 10/23/23 04/29/24 (Hair,Skin and Nails tablet) cyanocobalamin (vitamin B-12) 500 500 mcg PO DAILY 11/21/23 04/29/24 mcg tablet ferrous sulfate 325 mg (65 mg 325 mg BID 11/21/23 04/29/24 iron) tablet (iron) acyclovir 400 mg tablet 400 mg PO DIRECTED 12/04/23 04/29/24 ondansetron 8 mg disintegrating 8 mg PO Q8H PRN Nausea 12/04/23 04/29/24 tablet prednisone 50 mg tablet 50 mg PO DIRECTED 12/04/23 04/29/24 sulfamethoxazole 800 1 tablet PO DIRECTED 12/04/23 04/29/24 mg-trimethoprim 160 mg tablet Allergies Allergy/AdvReac Type Severity Reaction Status Date / Time No Known Allergies Allergy Verified 04/29/24 13:22 Review of Systems Review of Systems: All systems reviewed & are unremarkable except as noted in HPI and below PMFSH Past Medical History Medical History Anxiety Chronic, continuous use of opioids hydrocodone Lymphoma Surgical History Surgical History H/O: hysterectomy History of hip replacement, total History of left knee replacement Family History Family History Mother Thyroid disorder Other Family history of arthritis Social History Social History Smoking status: Never smoker Second hand tobacco smoke exposure: No Alcohol intake: never Substance use: never Substance use type: does not use Lack of Transportation: No Lack of Food: Never True Current Housing: I Have Housing Concerned About Future Housing: No Difficulty Paying Gas/Electric Bills: No Difficulty Paying for Meds: No Currently Unemployed: No Education: Associate Degree Difficulty w/ Childcare or Family Care: No Living arrangements: alone Spiritual care concerns: No Exam Narrative: GENERAL: Nontoxic, no acute distress, pleasant cooperative HEAD: Normocephalic, atraumatic. EYES: PERRLA and EOMI. ENT: Grossly unremarkable NECK: Supple. CHEST: Clear to auscultation. No respiratory distress. HEART: Regular rate and rhythm ABDOMEN: Soft, nontender, nondistended EXTREMITIES: Normal range of motion. No edema. SKIN: Warm, dry, no rash. NEURO: No focal deficits. Alert and oriented x3. PSYCH: Normal mood and affect. Course Vital Signs Vital signs: Vital Signs Temperature 98 F 05/20/24 15:15 Pulse Rate 67 05/20/24 15:15 Respiratory Rate 18 05/20/24 15:15 Blood Pressure 115/85 05/20/24 15:15 Pulse Oximetry 98 05/20/24 15:15 Temperature 98 F 05/20/24 15:15 Pulse Rate 157
[2024-05-20] MEDS: SODIUM CHLORIDE 0.9% IV 1,000 ML 999 ML IV CONT ×2 (16:14→17:16)
--- NOTE | 2024-05-20 16:16 | ECG_ITS ---
Test Date: 2024-05-20 16:10:42 Measurements Intervals [place] Rate: 152 P: 0 MS: 0 QRS: -45 QRSD: 139 T: 134 QT: 325 QTc: 517 Interpretive Statements ATRIAL FLUTTER/TACHYCARDIA WITH RAPID VENTRICULAR RESPONSE LEFT AXIS DEVIATION [QRS AXIS < -30] LEFT BUNDLE BRANCH BLOCK [120+ ms QRS DURATION, 80+ ms Q/S IN V1/V2, 85+ ms R IN I/aVL/V5/V6] Compared to ECG 05/20/2024 15:14:27 ATRIAL FLUTTER NOW PRESENT Electronically Signed On 05-20-2024 17:16:57 CDT by Kortney Dougherty M.D.
--- NOTE | 2024-05-20 16:20 | PC.NURSE ---
Pt spoke with MD. Agreeable to UA, blood work, IVF. Pt wheeled to bathroom for urine sample and upon getting back in bed, HR increased to 150 and pt c/o chest pressure. EKG obtained. MD made aware, at bedside.
[2024-05-20 16:24] LABS: Basophils Percent Auto 0.5 % (0.2-1.2); Eosinophils Absolute Auto 0.1 K/mm3 (0-0.3); Eosinophils Percent Auto 1.4 % (0-4.4); Hemoglobin 9.7 g/dL (12.0-15.0); Immature Granulocyte Absolute 0.03 K/mm3 (0.00-0.031); Immature Granulocyte Percent A 0.5 % (0-0.5); Lymphocytes Absolute Auto 1.44 K/mm3 (0.9-3.2); Lymphocytes Percent Auto 22.8 % (18.3-44.2); Mean Corpuscular HGB Conc 31.3 g/dl (32-36); Mean Corpuscular Hemoglobin 36.7 pg (26-34); Mean Corpuscular Volume 117.4 fl (80-100); Mean Platelet Volume 12.5 fl (7.4-10.4); Monocytes Absolute Auto 0.6 K/mm3 (0.1-0.6); Monocytes Percent Auto 9.7 % (2.6-8.5); Neutrophils Absolute Auto 4.1 K/mm3 (1.3-6.7); Neutrophils Percent Auto 65.1 % (45.5-73.1); Platelet Count Result 79 k/mm3 (150-375); Red Blood Count 2.64 M/mm3 (4.2-5.4); Red Cell Distribution Width 20.9 % (11.5-14.5); White Blood Count 6.3 K/mm3 (4.5-10.0)
[2024-05-20 16:33] LABS: Alanine Aminotransferase 88 U/L (6-35); Albumin Level 3.5 g/dL (3.5-5.1); Alkaline Phosphatase 148 U/L (38-126); Anion Gap 9 mmol/L (4-12); Aspartate Amino Transferase 45 U/L (14-36); Bilirubin,Total 0.8 mg/dL (0.2-1.3); Blood Urea Nitrogen 26 mg/dL (7-17); Calcium 8.9 mg/dL (8.4-10.2); Carbon Dioxide 24 mmol/L (22-30); Chloride 103 mmol/L (98-107); Estimated CRCL calculation 29 ml/min; Estimated Glomerular Filt Rate 40; Glucose 106 mg/dL (65-110); Potassium 4.2 mmol/L (3.4-5.0); Sodium 136 mmol/L (137-145)
[2024-05-20] MEDS: ADENOSINE IV SOLN 6 MG/2 ML VIAL IV PUSH (16:45)
--- NOTE | 2024-05-20 16:47 | ECG_ITS ---
Test Date: 2024-05-20 16:50:38 Measurements Intervals [place] Rate: 69 P: 77 IN: 176 QRS: -38 QRSD: 132 T: 169 QT: 463 QTc: 499 Interpretive Statements SINUS RHYTHM WITH SINUS ARRHYTHMIA LEFT AXIS DEVIATION [QRS AXIS < -30] LEFT BUNDLE BRANCH BLOCK [120+ ms QRS DURATION, 80+ ms Q/S IN V1/V2, 85+ ms R IN I/aVL/V5/V6] Compared to ECG 05/20/2024 16:10:42 Atrial flutter no longer present Electronically Signed On 05-20-2024 17:17:15 CDT by Kortney Dougherty M.D.
[2024-05-20 16:50] LABS: Add Urine Microscopic? YES; Appearance Urine Cloudy (Clear); Bacteria Urine 2+ /hpf; Bilirubin Urine Negative (Negative); Blood Urine Negative (Negative); Color Urine Dark Yellow (Yellow); Glucose Urine UA Negative (Negative); Ketones Urine 1+ mg/dL (Negative); Leukocyte Esterase Ur Negative LEU/UL (Negative); Mucus Urine Present /lpf; Need Manual Microscopic Reviewed; Nitrate Urine Negative (Negative); Non Pathogenic Casts >20; Protein Urine 1+ mg/dL (Negative); RBC Urine 0-2 /hpf (0-2); Specific Grav Ur 1.037 (1.001-1.035); Squamous Epithelial Cell Urine Moderate /hpf (Few)
[2024-05-20 16:54] LABS: Anisocytosis 1+; Macrocytosis 1+ (NORMAL); Platelet Estimate Decreased (Adequate); Schistocytes None Seen
[2024-05-20 18:07] LABS: Lipase 29 U/L (23-300); Magnesium 2.1 mg/dL (1.6-2.3)
[2024-05-20 18:27] LABS: NT Pro B Type Natriuretic Pept 12000 pg/mL (19.9-100); Troponin I 0.157 ng/mL (0.000-0.034)
--- NOTE | 2024-05-20 18:49 | PC.NURSE ---
Pt refused covid swab. Stating she was just tested negative.
--- NOTE | 2024-05-20 20:33 | ECG_ITS ---
Test Date: 2024-05-20 20:31:04 Measurements Intervals [place] Rate: 157 P: 0 OR: 0 QRS: -38 QRSD: 133 T: 138 QT: 318 QTc: 514 Interpretive Statements ATRIAL FLUTTER/TACHYCARDIA WITH RAPID VENTRICULAR RESPONSE LEFT AXIS DEVIATION [QRS AXIS < -30] LEFT BUNDLE BRANCH BLOCK [120+ ms QRS DURATION, 80+ ms Q/S IN V1/V2, 85+ ms R IN I/aVL/V5/V6] ABNORMAL ECG CRITICAL TEST RESULT Compared to ECG 05/20/2024 16:50:38 ATRIAL FLUTTER REPLACES SINUS RHYTHM Electronically Signed On 05-21-2024 07:15:10 CDT by Chino Conde M.D.
[2024-05-20 20:59] LABS: INR 1.1; Partial Thromboplastin Time 29.4 Seconds (22.3-36.8); Prothrombin Time 14.6 Seconds (11.1-14.7)
[2024-05-20 21:20] LABS: Troponin I 0.142 ng/mL (0.000-0.034)
[2024-05-20] MEDS: dilTIAZem 100 MG/100 ML 100 MG/100 ML BAG IV CONT (21:45)
[2024-05-20] MEDS: dilTIAZem HCl INJ 25 MG/5 ML VIAL 10 MG IV PUSH (21:46)
--- NOTE | 2024-05-20 21:55 | PM.IMHP ---
H&P: HPI History of Present Illness Date/Time: 05/20/24 21:55 Chief Complaint: Syncopal episodes Narrative: 79-year-old female with PMHx: of anxiety, lymphoma currently on chemotherapy is being admitted for evaluation ongoing syncope, and atrial flutter. Patient presented to the emergency room from the Cancer [facility] reporting syncopal episode, she reported normally her episodes would occur when she was trying to have bowel movement, today she had an episode when she was at the Cancer Center. Ms. Diaz reports her episodes as feeling like passing out, she denies any chest pain, nausea or vomiting, SOB fevers or chills with episodes. ED work-up reveals: Initially vital signs were normal limits, patient went to get up to the bathroom when she suddenly became tachycardic repeat EKG revealed supraventricular tachycardia patient was symptomatic with lightheadedness, patient was given 6 mg of adenosine when she return to normal sinus rhythm EKG confirmed sinus arrhythmia left bundle branch block no ST elevations or depressions chest x-ray revealed atelectasis versus pneumonitis, initial troponin elevated 0.157, elevated serum creatinine 1.30 initial troponin elevation her suspect to be related to demand ischemia. IMU admission [facility] Past Medical History Medical History Anxiety Chronic, continuous use of opioids hydrocodone Lymphoma Surgical History Surgical History H/O: hysterectomy History of hip replacement, total History of left knee replacement Family History Family History Mother Thyroid disorder Other Family history of arthritis Social History Social History Smoking status: Never smoker Second hand tobacco smoke exposure: No Alcohol intake: never Substance use: never Substance use type: does not use Lack of Transportation: No Lack of Food: Never True Current Housing: I Have Housing Concerned About Future Housing: No Difficulty Paying Gas/Electric Bills: No Difficulty Paying for Meds: No Currently Unemployed: No Education: Associate Degree Difficulty w/ Childcare or Family Care: No Living arrangements: alone Spiritual care concerns: No Meds Home Medications and Allergies Home Medications Medication Instructions Recorded Confirmed Type aspirin 81 mg chewable tablet 81 mg PO DAILY 08/28/23 05/20/24 History (Prasanna Chewable Low Dose Aspirin) citalopram 40 mg tablet 40 mg PO HS 08/28/23 05/20/24 History estradiol 2 mg tablet 2 mg PO DAILY 08/28/23 05/20/24 History hydrocodone 5 mg-acetaminophen 325 2 tablet PO DAILY PRN Pain 08/28/23 05/20/24 History mg tablet meloxicam 15 mg tablet 15 mg PO DAILY 08/28/23 05/20/24 History trazodone 100 mg tablet 200 mg PO QHS PRN Insomnia 08/28/23 05/20/24 History multivitamin 1 tablet PO DAILY 10/23/23 05/20/24 History cyanocobalamin (vitamin B-12) 500 500 mcg PO DAILY 11/21/23 05/20/24 History mcg tablet ferrous sulfate 325 mg (65 mg 325 mg BID 11/21/23 05/20/24 History iron) tablet (iron) acyclovir 400 mg tablet 400 mg PO DIRECTED 12/04/23 05/20/24 History ondansetron 8 mg disintegrating 8 mg PO Q8H PRN Nausea 12/04/23 05/20/24 History tablet sulfamethoxazole 800 1 tablet PO 3XW 12/04/23 05/20/24 History mg-trimethoprim 160 mg tablet Allergies Allergy/AdvReac Type Severity Reaction Status Date / Time No Known Allergies Allergy Verified 04/29/24 13:22 Vital Signs Vital Signs - 24 hr 05/20/24 15:26 05/20/24 15:15 05/20/24 16:15 Temperature 98 F Pulse Rate 67 150 H Respiratory Rate 18 20 Blood Pressure 115/85 122/95 H Pulse Oximetry 100 98 99 Oxygen Delivery Room Air 05/20/24 15:16 05/20/24 15:46 05/20/24 16:46 Temperature Pulse Rate 66 72 75 Respiratory Rate 20
--- NOTE | 2024-05-20 21:59 | ECG_ITS ---
Test Date: 2024-05-20 21:56:13 Measurements Intervals [place] Rate: 74 P: 50 [place]: 172 QRS: -34 QRSD: 133 T: 171 QT: 444 QTc: 494 Interpretive Statements SINUS RHYTHM LEFT AXIS DEVIATION [QRS AXIS < -30] LEFT BUNDLE BRANCH BLOCK [120+ ms QRS DURATION, 80+ ms Q/S IN V1/V2, 85+ ms R IN I/aVL/V5/V6] Compared to ECG 05/20/2024 20:31:04 SINUS RHYTHM HAS BEEN RESTORED Electronically Signed On 05-21-2024 07:20:43 CDT by Chino Conde M.D.
--- NOTE | 2024-05-20 22:00 | PC.NURSE ---
EDWIGE Arshad cosigned evin [place] and
--- NOTE | 2024-05-20 22:11 | ADMGEN ---
This patient, Chyna Diaz, was admitted to IMU Room 231-01 at 2210. Patient/family oriented to hospital policies and general routines including ID bracelet, bed and alarms, visiting hours, pain management, procedures, bathroom and other care routines, personal items, smoking policy, room service/diet, and visiting hours. Information on how to activate the Rapid Response Team has been discussed. Patient/Family are encouraged to report perceived risks to care and to ask questions if they do not understand what they are told or what they should do.
[2024-05-20 23:39] LABS: Lactic Acid Reflex 1.5 mmol/L (0.7-2.0)
[2024-05-20 23:52] LABS: Erythrocyte Sedimentation Rate 26 mm/hr (0-20)
[2024-05-20 23:55] LABS: Troponin I 0.144 ng/mL (0.000-0.034)
[2024-05-21] VITALS (25 sets, daily range): BP systolic 106–142; BP diastolic 57–96; PULSE 66–146; RESP 16–24; TEMP 36.2–37.1; O2SAT 94–100
[2024-05-21 00:03] LABS: Procalcitonin 0.1 ng/mL
[2024-05-21] MEDS: DOXYCYCLINE 100 MG/NS 100 ML 100 MG/100 ML BAG IVPB ×2 (00:43→08:50)
[2024-05-21] MEDS: HYDROcodone/acetaminophen (*CRX) 5-325 MG TABLET 1 TAB PO ×2 (01:55→14:58)
--- NOTE | 2024-05-21 05:26 | ECG_ITS ---
Test Date: 2024-05-21 07:15:05 Measurements Intervals [place] Rate: 75 P: 43 [place]: 176 QRS: -23 QRSD: 134 T: 179 QT: 449 QTc: 504 Interpretive Statements SINUS RHYTHM LEFT BUNDLE BRANCH BLOCK [120+ ms QRS DURATION, 80+ ms Q/S IN V1/V2, 85+ ms R IN I/aVL/V5/V6] ABNORMAL ECG Compared to ECG 05/20/2024 21:56:13 NO DIFFERENCE Electronically Signed On 05-21-2024 07:27:07 CDT by Chino Conde M.D.
[2024-05-21 05:50] LABS: Immature Platelet Fraction Pct 7.4 % (0.9-11.2); Mean Platelet Volume 11.4 fl (7.4-10.4); Platelet Count Result 74 k/mm3 (150-375)
[2024-05-21 05:51] LABS: Basophils Percent Auto 0.7 % (0.2-1.2); Eosinophils Absolute Auto 0.2 K/mm3 (0-0.3); Eosinophils Percent Auto 3.1 % (0-4.4); Hematocrit 28.9 % (37.0-47.0); Hemoglobin 8.9 g/dL (12.0-15.0); Immature Granulocyte Absolute 0.02 K/mm3 (0.00-0.031); Immature Granulocyte Percent A 0.3 % (0-0.5); Immature Platelet Fraction Pct 7.5 % (0.9-11.2); Lymphocytes Absolute Auto 1.65 K/mm3 (0.9-3.2); Lymphocytes Percent Auto 28.3 % (18.3-44.2); Mean Corpuscular HGB Conc 30.8 g/dl (32-36); Mean Platelet Volume 11.8 fl (7.4-10.4); Monocytes Absolute Auto 0.6 K/mm3 (0.1-0.6); Monocytes Percent Auto 10.8 % (2.6-8.5); Neutrophils Absolute Auto 3.3 K/mm3 (1.3-6.7); Neutrophils Percent Auto 56.8 % (45.5-73.1); Platelet Count Result 76 k/mm3 (150-375); Red Blood Count 2.47 M/mm3 (4.2-5.4); Red Cell Distribution Width 20.3 % (11.5-14.5); White Blood Count 5.8 K/mm3 (4.5-10.0)
[2024-05-21 06:01] LABS: Alanine Aminotransferase 69 U/L (6-35); Albumin Level 3.1 g/dL (3.5-5.1); Alkaline Phosphatase 134 U/L (38-126); Anion Gap 9 mmol/L (4-12); Aspartate Amino Transferase 36 U/L (14-36); Bilirubin,Total 0.5 mg/dL (0.2-1.3); Blood Urea Nitrogen 16 mg/dL (7-17); Calcium 8.6 mg/dL (8.4-10.2); Carbon Dioxide 20 mmol/L (22-30); Chloride 108 mmol/L (98-107); Estimated CRCL calculation 47 ml/min; Estimated Glomerular Filt Rate > 60; Glucose 95 mg/dL (65-110); Potassium 4.3 mmol/L (3.4-5.0); Sodium 137 mmol/L (137-145)
[2024-05-21 06:22] LABS: Anisocytosis 1+; Macrocytosis 2+ (NORMAL); Platelet Estimate Slightly Decreased (Adequate); Schistocytes None Seen
[2024-05-21] MEDS: HEPARIN SODIUM 5,000 UNITS/ML VIAL 5000 UNITS SUB-Q ×2 (08:49→20:34)
--- NOTE | 2024-05-21 10:20 | PC.NURSE ---
Pt still refusing to have COVID/Influenza/RSV swab. notified. New order to d/c swab
--- NOTE | 2024-05-21 10:59 | PM.CNCAR ---
Assessment and Plan Assessment and plan (1) Intermittent atrial flutter: Code(s): I48.92 - Unspecified atrial flutter Status: Acute Assessment and Plan: This is a new diagnosis. She converted back to sinus rhythm while on Diltiazem drip but not long after my consultation with her she briefly went back into atrial flutter with a rate in the 150's. Spontaneously converted back to sinus once again Will shift her from diltiazem to metoprolol (had recurrence on diltiazem, rate not controlled) She has a [id number] score of 3 (age, gender). Therefore, anticoagulation is indicated. However, patient state she is falling on a daily basis. We discussed risk/benefit of anticoagulation at this time and mutual decision was made that it is not a safe option at this point. May be a candidate for LAAO. Check echo (2) Syncope: Code(s): R55 - Syncope and collapse Status: Acute Assessment and Plan: I think this is probably vasovagal or orthostatic in nature vs. arrhythmogenic. Check orthostatic vital signs. Can do outpatient school bus monitor as well. History of Present Illness History of Present Illness Consult date/time: 05/21/24 10:59 Requesting physician: Aniyah Espitia APRN Consult reason: Other (atrial flutter) Reason For Visit: Syncope Narrative: Chyna Diaz is a 79 year old female with no cardiac history coming to the hospital from the Cancer Center following a syncopal event. Patient states she has been having syncope frequently over the past few months. She states she is falling almost every day. Because of this she is unable to drive or participate in many activities. Her syncopal events are sometimes preceded by dizziness, but sometimes there are no warning signs. Syncope seems to happen commonly when she has recently stood up from a chair or bed. She is also having runs of supraventricular tachycardia vs atrial flutter with RVR on telemetry. She is asymptomatic with this and denies any palpitations, chest pain, shortness of breath. She is comfortable and has no complaints at the time of my visit with her. [facility] Past Medical History Medical History Anxiety Chronic, continuous use of opioids hydrocodone Lymphoma Surgical History Surgical History H/O: hysterectomy History of hip replacement, total History of left knee replacement Family History Family History Mother Thyroid disorder Other Family history of arthritis Social History Social History Smoking status: Never smoker Second hand tobacco smoke exposure: No Alcohol intake: never Substance use: never Substance use type: does not use Do You Feel Safe in your Home?: Yes Lack of Transportation: No Lack of Food: Never True Current Housing: I Have Housing Concerned About Future Housing: No Difficulty Paying Gas/Electric Bills: No Difficulty Paying for Meds: No Currently Unemployed: No Education: Decline to Answer Difficulty w/ Childcare or Family Care: No Living arrangements: alone Spiritual care concerns: No Meds Home Medications and Allergies Home Medications Medication Instructions Recorded Confirmed Type aspirin 81 mg chewable tablet 81 mg PO DAILY 08/28/23 06/10/24 History (Prasanna Chewable Low Dose Aspirin) citalopram 40 mg tablet 40 mg PO HS 08/28/23 06/10/24 History estradiol 2 mg tablet 2 mg PO DAILY 08/28/23 06/10/24 History hydrocodone 5 mg-acetaminophen 325 1 tablet PO BID PRN Pain 08/28/23 06/10/24 History mg tablet meloxicam 15 mg tablet 15 mg PO DAILY 08/28/23 06/10/24 History trazodone 100 mg tablet 200 mg PO QHS PRN Insomnia 08/28/23 06/10/24 History multivitamin 1 tablet PO DAILY 10/23/23 06/10/24 History cyanocobalamin (vitamin B-
[2024-05-21 13:23] LABS: Folic Acid 13.1 ng/mL (2.76->20); Vitamin B12 > 1000.0 pg/mL (239-931)
--- NOTE | 2024-05-21 13:42 | ECG_ITS ---
Test Date: 2024-05-21 13:54:56 Measurements Intervals [place] Rate: 75 P: 60 [place]: 169 QRS: -18 QRSD: 138 T: 181 QT: 444 QTc: 498 Interpretive Statements SINUS RHYTHM WITH OCCASIONAL SUPRAVENTRICULAR PREMATURE COMPLEXES LEFT BUNDLE BRANCH BLOCK [120+ ms QRS DURATION, 80+ ms Q/S IN V1/V2, 85+ ms R IN I/aVL/V5/V6] ABNORMAL ELECTROCARDIOGRAM Compared to ECG 05/21/2024 07:15:05 No significant changes Electronically Signed On 05-22-2024 13:33:42 CDT by Chino Conde M.D.
--- NOTE | 2024-05-21 13:43 | PC.NURSE ---
Pt's heart rate has increased to 150. Pt sitting in chair and asymptomatic with change in heart rate. Cardiology notified. New order to increase Cardizem gtt to 10mg/ml and obtain 12-lead EKG.
[2024-05-21] MEDS: dilTIAZem 100 MG/100 ML 100 MG/100 ML BAG 10 MG IV CONT (14:58)
--- NOTE | 2024-05-21 15:03 | PM.IMPN ---
Progress Note: A&P Assessment and Plan (1) Intermittent atrial flutter: Code(s): I48.92 - Unspecified atrial flutter Status: Acute Assessment and Plan: -patient given 6 mg of adenosine in the ER, reports EKG reveals converted to normal sinus rhythm -troponin elevated, 0.157, suspect secondary to demand ischemia -last echocardiogram 03/17/2024, left ventricular systolic function mildly reduced estimated 45-50%, left ventricular diastolic function is grade 1 diastolic dysfunction, left atrial chamber dimension is moderately enlarged continue Cardizem infusion and monitor electrolytes -cardiology consulted (2) Syncope: Code(s): R55 - Syncope and collapse Status: Acute Assessment and Plan: -ongoing > 5 days, episode during chemotherapy treatment today -initiate fall precautions -up with assistance -continue telemetry monitoring -PT/OT eval and treat (3) Elevated troponin: Code(s): R79.89 - Other specified abnormal findings of blood chemistry Status: Acute Assessment and Plan: -pancytopenia (4) Anemia associated with chemotherapy: Code(s): D64.81 - Anemia due to antineoplastic chemotherapy; T45.1X5A - Adverse effect of antineoplastic and immunosuppressive drugs, initial encounter Status: Acute Assessment and Plan: -hgb stable at 9.7 -continue to monitor CMP daily -check ESR, procalcitonin (5) Lymphoma: Code(s): C85.90 - Non-Hodgkin lymphoma, unspecified, unspecified site Status: Acute Assessment and Plan: -continue plan with Cancer [facility] (6) Pneumonitis: Code(s): J98.4 - Other disorders of lung Status: Acute Assessment and Plan: Pneumonitis, stable, not requiring oxygen likely from chemotherapy switched antbiotics to augmentin and doxycycline -blood cultures pending -viral PCR negative -consider reverse isolation precaution Plan Continue home medications: Medications have been reviewed unable to reconcile due to med rec not available VTE Prophylaxis: Heparin subQ DIET: Heart healthy diet Anticipated hospital stay: > 2 days Code Status: Full code Subjective Date/time seen: 05/21/24 15:03 Interval history: Comfortable at bedside, awaiting cardiology eval Exam Narrative: General: A well-developed, nontoxic, female, resting on the ED stretcher in no acute distress HEENT: PERRL, EOMI. Oral mucosal dry. Neck: Supple. No midline cervical tenderness. Respiratory: Respirations are non- labored and lungs bilateral lower bases with inspiration wheezing, fine crackles Cardiovascular: Regular rate and rhythm with S1-S2. Gastrointestinal: Abdomen is soft, non-tender, and non-distended with positive bowel sounds. Skin: Warm and dry. No rash or lesions on limited exam. Extremities: No cyanosis, clubbing, or edema. Radial and pedal pulses intact. Neurological: Alert and oriented. Cranial nerves 2-12 are grossly intact. No gross focal deficits to casual conversation. Psychiatric: Pleasant and cooperative with normal mood and affect. Judgment and insight intact. Objective Data Vital Signs Vital Signs: Vital Signs - 24 hr 05/20/24 15:26 05/20/24 15:15 05/20/24 16:15 Temperature 98 F Pulse Rate 67 150 H Respiratory Rate 18 20 Blood Pressure 115/85 122/95 H Pulse Oximetry 100 98 99 Oxygen Delivery Room Air 05/20/24 15:16 05/20/24 15:46 05/20/24 16:46 Temperature Pulse Rate 66 72 75 Respiratory Rate 20 18 16 Blood Pressure 115/85 125/89 137/87 Pulse Oximetry 99 99 100 Oxygen Delivery 05/20/24 16:15 05/20/24 16:16 05/20/24 16:30 Temperature Pulse Rate 151 H 150 H 148 H Respiratory Rate 21 H 17 12 Blood Pressure 122/95 H 124/90 Pulse Oximetry 99 98 99 Oxygen Delivery 05/20/24 16:31 05/20/24 16:46 05/20/24 17:01 Temperature Pulse Rate 149 H 77 67 Respiratory Rate 16 20 17 Blood Pressure 137/87 139/95 H Pulse Oximetry 99 99 99 Oxygen Delive
--- NOTE | 2024-05-21 16:03 | PC.NURSE ---
Pt requesting home medications. Pt mostly takes vitamins and some pain medication. Dr. Kelley updated with pt's request. New order to resume trazodone and aspiring only.
--- NOTE | 2024-05-21 16:39 | PCPTNOTE ---
Pt stated she did not require PT at this time. States she falls when she blacks out and not any other time. Uses a cane normally, but states if she needed PT she would do it. Less than 8 minutes spent with patient. Will discharge orders due to refusal.
[2024-05-21] MEDS: METOPROLOL TARTRATE 25 MG TABLET PO (20:34)
[2024-05-21] MEDS: traZODone HCL 50 MG TABLET 200 MG PO (20:35)
[2024-05-21] MEDS: AMOXICILLIN/CLAVULANATE K 875-125 MG TAB 1 TABLET PO (20:35)
[2024-05-21] MEDS: DOXYCYCLINE HYCLATE 100 MG TABLET PO (20:35)
[2024-05-22] VITALS (20 sets, daily range): BP systolic 85–137; BP diastolic 61–97; PULSE 63–172; RESP 16–20; TEMP 36.6–37.1; O2SAT 95–98
--- NOTE | 2024-05-22 | ECHO_ITS ---
Patient Info Name: Chyna Diaz Age: 79 years : 1945 Gender: Female Ht: 62 in Wt: 157 lbs BSA: 1.79 m2 HR: 79 bpm BP: 137 / 78 mmHg Heart Rhythm: Sinus Rhythm Technical Quality: Good Exam Date: 05/22/2024 11:07 AM Exam Location: Echo Lab Patient Status: Inpatient Admit Date: 05/21/2024 Staff Ordering Physician: Denisse Marcus History Instructor: Patricio Hendrickson RDCS Attending Provider: Jayne Arthur MD Referring Physician: Angeline LYONS; Exam Type: CA echo doppler color flow Study Info Indications - atrial flutter Complete two-dimensional, color flow and Doppler transthoracic echocardiogram is performed. Summary 1. Complete two-dimensional, color flow and Doppler transthoracic echocardiogram is performed. 2. Mild left ventricular enlargement with moderate global systolic dysfunction ejection fraction 35-40%. 3. Biatrial dilation left greater than right. 4. Moderate mitral regurgitation. 5. Mild tricuspid regurgitation. Left Ventricle Left ventricular chamber dimension is mildly enlarged. Left ventricular systolic function is moderately reduced, estimated at 35-40%. The left ventricular diastolic function is normal. Right Ventricle Right ventricular chamber dimension is normal. Left Atria Left atrial chamber dimension is moderately enlarged. Right Atria Right atrial chamber dimension is mildly enlarged. Aortic Valve The aortic valve is normal. Pulmonic Valve The pulmonic valve is normal. Mitral Valve The mitral valve has normal leaflets. There is moderate mitral valve regurgitation. Tricuspid Valve The tricuspid valve leaflets are normal. There is mild tricuspid valve regurgitation. Pericardium/Pleural The pericardium appears normal. Aorta The aortic root size at the sinus of Valsalva is normal. Left Ventricular Outflow Tract Name Value Normal LVOT 2D LVOT Diameter 2.0 cm LVOT Doppler LVOT Peak Gradient 3 mmHg LVOT Mean Gradient 2 mmHg LVOT VTI 17 cm LVOT VTI/AV VTI Ratio 0.5 LVOT Stroke Volume 53 ml LVOT CO 3.7 l/min LVOT CI 2.1 l/min/m2 Pulmonic Valve Name Value Normal PV Doppler PV Peak Gradient 2 mmHg Mitral Valve Name Value Normal MV Doppler MV Peak Gradient 7 mmHg MV Mean Gradient 3 mmHg MV Decel [place] 841 cm/s2 MV PHT 43 ms MV Area (PHT) 5.1 cm2 4.0-5.0 MV Area (Co
[2024-05-22 04:52] LABS: Basophils Percent Auto 0.4 % (0.2-1.2); Eosinophils Absolute Auto 0.2 K/mm3 (0-0.3); Eosinophils Percent Auto 4.5 % (0-4.4); Hematocrit 28.9 % (37.0-47.0); Hemoglobin 8.8 g/dL (12.0-15.0); Immature Granulocyte Absolute 0.03 K/mm3 (0.00-0.031); Immature Granulocyte Percent A 0.6 % (0-0.5); Immature Platelet Fraction Pct 7.7 % (0.9-11.2); Lymphocytes Percent Auto 19.4 % (18.3-44.2); Mean Corpuscular HGB Conc 30.4 g/dl (32-36); Mean Corpuscular Hemoglobin 35.9 pg (26-34); Mean Platelet Volume 11.9 fl (7.4-10.4); Monocytes Absolute Auto 0.5 K/mm3 (0.1-0.6); Monocytes Percent Auto 10.5 % (2.6-8.5); Neutrophils Absolute Auto 3.3 K/mm3 (1.3-6.7); Neutrophils Percent Auto 64.6 % (45.5-73.1); Red Blood Count 2.45 M/mm3 (4.2-5.4); Red Cell Distribution Width 19.6 % (11.5-14.5); White Blood Count 5.2 K/mm3 (4.5-10.0)
[2024-05-22 05:11] LABS: Platelet Count Result 68 k/mm3 (150-375)
[2024-05-22 05:12] LABS: Alanine Aminotransferase 51 U/L (6-35); Albumin Level 2.8 g/dL (3.5-5.1); Alkaline Phosphatase 113 U/L (38-126); Anion Gap 5 mmol/L (4-12); Aspartate Amino Transferase 27 U/L (14-36); Bilirubin,Total 0.7 mg/dL (0.2-1.3); Blood Urea Nitrogen 11 mg/dL (7-17); Calcium 8.4 mg/dL (8.4-10.2); Carbon Dioxide 24 mmol/L (22-30); Chloride 109 mmol/L (98-107); Estimated CRCL calculation 61 ml/min; Estimated Glomerular Filt Rate > 60; Glucose 100 mg/dL (65-110); Magnesium 1.8 mg/dL (1.6-2.3); Potassium 4.1 mmol/L (3.4-5.0); Sodium 138 mmol/L (137-145)
[2024-05-22 05:16] LABS: Anisocytosis 1+; Macrocytosis 1+ (NORMAL); Platelet Estimate Decreased (Adequate); Schistocytes None Seen; Tear Drop Cells 1+
[2024-05-22] MEDS: METOPROLOL TARTRATE 25 MG TABLET PO (08:49)
[2024-05-22] MEDS: DOXYCYCLINE HYCLATE 100 MG TABLET PO ×2 (08:49→20:44)
[2024-05-22] MEDS: ASPIRIN 81 MG CHEWABLE TABLET PO (08:49)
[2024-05-22] MEDS: HEPARIN SODIUM 5,000 UNITS/ML VIAL 5000 UNITS SUB-Q ×2 (08:49→20:44)
[2024-05-22] MEDS: CALCIUM CARBONATE (TUMS) 500 MG (200 MG ELEMENTAL) PO ×2 (08:49→15:54)
[2024-05-22] MEDS: AMOXICILLIN/CLAVULANATE K 875-125 MG TAB 1 TABLET PO ×2 (08:49→20:44)
[2024-05-22 10:04] LABS: Basophils Percent Auto 0.5 % (0.2-1.2); Eosinophils Absolute Auto 0.3 K/mm3 (0-0.3); Eosinophils Percent Auto 5.3 % (0-4.4); Hematocrit 30.7 % (37.0-47.0); Hemoglobin 9.5 g/dL (12.0-15.0); Immature Granulocyte Absolute 0.02 K/mm3 (0.00-0.031); Immature Granulocyte Percent A 0.4 % (0-0.5); Immature Platelet Fraction Pct 7.1 % (0.9-11.2); Lymphocytes Percent Auto 19.3 % (18.3-44.2); Mean Corpuscular HGB Conc 30.9 g/dl (32-36); Mean Corpuscular Hemoglobin 36.5 pg (26-34); Mean Corpuscular Volume 118.1 fl (80-100); Monocytes Absolute Auto 0.6 K/mm3 (0.1-0.6); Monocytes Percent Auto 10.9 % (2.6-8.5); Neutrophils Absolute Auto 3.6 K/mm3 (1.3-6.7); Neutrophils Percent Auto 63.6 % (45.5-73.1); Platelet Count Result 73 k/mm3 (150-375); Red Cell Distribution Width 20.2 % (11.5-14.5); White Blood Count 5.7 K/mm3 (4.5-10.0)
[2024-05-22 10:23] LABS: Anisocytosis 1+; Macrocytosis 2+ (NORMAL); Ovalocytes 1+; Platelet Estimate Decreased (Adequate); Poikilocytosis 1+; Schistocytes None Seen; Tear Drop Cells 1+
--- NOTE | 2024-05-22 11:13 | ECG_ITS ---
Test Date: 2024-05-22 11:20:36 Measurements Intervals [place] Rate: 165 P: 0 MA: 0 QRS: -42 QRSD: 124 T: 145 QT: 295 QTc: 489 Interpretive Statements ATRIAL FLUTTER/TACHYCARDIA WITH RAPID VENTRICULAR RESPONSE LEFT BUNDLE BRANCH BLOCK ABNORMAL ECG INTERPRETATION BASED ON A DEFAULT AGE OF 40 YEARS Compared to ECG 05/21/2024 13:54:56 SVT/ ATRIAL FLUTTER HAS REPLACED SINUS RHYTHM Electronically Signed On 05-22-2024 15:03:57 CDT by Chino Conde M.D.
[2024-05-22] MEDS: SODIUM CHLORIDE 0.9% IV 500 ML IV CONT (12:00)
[2024-05-22] MEDS: ADENOSINE IV SOLN 6 MG/2 ML VIAL IV PUSH (12:20)
--- NOTE | 2024-05-22 12:23 | ECG_ITS ---
Test Date: 2024-05-22 12:29:52 Measurements Intervals [place] Rate: 76 P: 73 ND: 175 QRS: -24 QRSD: 134 T: 168 QT: 433 QTc: 489 Interpretive Statements SINUS RHYTHM WITH OCCASIONAL VENTRICULAR PREMATURE COMPLEXES WITH OCCASIONAL SUPRAVENTRICULAR PREMATURE COMPLEXES LEFT BUNDLE BRANCH BLOCK [120+ ms QRS DURATION, 80+ ms Q/S IN V1/V2, 85+ ms R IN I/aVL/V5/V6] ABNORMAL ELECTROCARDIOGRAM Compared to ECG 05/22/2024 11:20:36 SINUS RHYTHM REPLACES ATRIAL FLUTTER /SVT Electronically Signed On 05-22-2024 15:06:09 CDT by Chino Conde M.D.
--- NOTE | 2024-05-22 12:36 | PM.IMPN ---
Progress Note: A&P Assessment and Plan (1) Intermittent atrial flutter: Code(s): I48.92 - Unspecified atrial flutter Status: Acute Assessment and Plan: -patient given 6 mg of adenosine in the ER, reports EKG reveals converted to normal sinus rhythm -troponin elevated, 0.157, suspect secondary to demand ischemia -last echocardiogram 03/17/2024, left ventricular systolic function mildly reduced estimated 45-50%, left ventricular diastolic function is grade 1 diastolic dysfunction, left atrial chamber dimension is moderately enlarged S/p cardizem infusion, now on Metoprolol had SVT epsidode this afternoon with rates in 160-170s responded to IV adenosine Repeat ECHO pendign cardiology to adjust Metoprolol -cardiology following no AC due to frequent falls (2) Syncope: Code(s): R55 - Syncope and collapse Status: Acute Assessment and Plan: -ongoing > 5 days, episode during chemotherapy treatment today -initiate fall precautions -up with assistance -continue telemetry monitoring -PT/OT eval and treat (3) Elevated troponin: Code(s): R79.89 - Other specified abnormal findings of blood chemistry Status: Acute Assessment and Plan: -pancytopenia (4) Anemia associated with chemotherapy: Code(s): D64.81 - Anemia due to antineoplastic chemotherapy; T45.1X5A - Adverse effect of antineoplastic and immunosuppressive drugs, initial encounter Status: Acute Assessment and Plan: -hgb stable at 9.7 -continue to monitor CMP daily -check ESR, procalcitonin (5) Lymphoma: Code(s): C85.90 - Non-Hodgkin lymphoma, unspecified, unspecified site Status: Acute Assessment and Plan: -continue plan with [facility] (6) Pneumonitis: Code(s): J98.4 - Other disorders of lung Status: Acute Assessment and Plan: Pneumonitis, stable, not requiring oxygen likely from chemotherapy switched antbiotics to augmentin and doxycycline -blood cultures pending -viral PCR negative -consider reverse isolation precaution Plan Continue home medications: Medications have been reviewed unable to reconcile due to med rec not available VTE Prophylaxis: Heparin subQ DIET: Heart healthy diet Anticipated hospital stay: > 2 days Code Status: Full code Subjective Date/time seen: 05/22/24 12:36 Interval history: Patient was started on Metoprolol 25mg yesterday by cards Patient just had another episode of SVT, which responded to 6mg IV of Adenosine will monitor her overnight and probably uptitrate her Metoprolol by cardiology Exam Narrative: General: A well-developed, nontoxic, female, resting on the ED stretcher in no acute distress HEENT: PERRL, EOMI. Oral mucosal dry. Neck: Supple. No midline cervical tenderness. Respiratory: Respirations are non- labored and lungs bilateral lower bases with inspiration wheezing, fine crackles Cardiovascular: Regular rate and rhythm with S1-S2. Gastrointestinal: Abdomen is soft, non-tender, and non-distended with positive bowel sounds. Skin: Warm and dry. No rash or lesions on limited exam. Extremities: No cyanosis, clubbing, or edema. Radial and pedal pulses intact. Neurological: Alert and oriented. Cranial nerves 2-12 are grossly intact. No gross focal deficits to casual conversation. Psychiatric: Pleasant and cooperative with normal mood and affect. Judgment and insight intact. Objective Data Vital Signs Vital Signs: Vital Signs - 24 hr 05/21/24 13:44 05/21/24 14:00 05/21/24 14:00 Temperature 98.1 F Pulse Rate 146 H 76 77 Respiratory Rate 20 Blood Pressure 120/64 Pulse Oximetry 96 Oxygen Delivery 05/21/24 14:00 05/21/24 14:58 05/21/24 14:58 Temperature Pulse Rate 76 82 82 Respiratory Rate Blood Pressure 120/64 131/82 131/82 Pulse Oximetry Oxygen Delivery 05/21/24 15:44 05/21/24 16:04 05/21/24 16:00 Temperature 98.5 F Pulse Rate 84 80 Resp
--- NOTE | 2024-05-22 12:52 | PC.NURSE ---
At 1103 Echocardiogram extracorporeal technician notified this nurse of a rhythm change on this patient. Rhythm appeared to have converted into an SVT that was running 160-170's, and patient appeared to be asymptomatic at this time. Blood pressure at this time was 85/97. EKG order received and the test was obtained. Patient without IV access, MD aware. Access was obtained eventually in order to administer a 500 mL bolus to the patient. Patient's blood pressure at this time was 95/63. An order for adenosine 6mg was obtained and was administered at 1220. Dr. Kelley and RN x3 at the bedside at this time. Patient converted to a sinus rhythm with frequent PACs - as shown on EKG. Blood pressure after the adenosine was 120/87. Patient still asymptomatic at this time.
--- NOTE | 2024-05-22 14:14 | PM.PNCARD ---
Progress Note: A&P Assessment and Plan (1) Intermittent atrial flutter: Code(s): I48.92 - Unspecified atrial flutter Status: Acute Assessment and Plan: Evidence of atrial flutter as well as SVT. She has had episodes of SVT in the last 24 hours. For the time being I am going to add diltiazem and await the results of her echo before deciding on whether or not to shift to an antiarrhythmic. Outpatient EP referral Addendum 05/22/24 15:38: Echo results show reduced LV function with EF 35-40%. Therefore, will discontinue diltiazem and advance metoprolol dosage. (2) Syncope: Code(s): R55 - Syncope and collapse Status: Acute Assessment and Plan: No syncope since she has been here despite having several episodes of SVT and atrial flutter. Subjective Date/time seen: 05/22/24 14:14 Interval history: Cardiology follow up for arrhythmias She has had several episodes of SVT since yesterday. She is asymptomatic with these episodes. Converted spontaneously from two episodes and required adenosine for one. Review of Systems Review of Systems: All systems reviewed & are unremarkable except as noted in HPI and below Exam Const: General: comfortable, no acute distress, alert and awake Orientation/consciousness: patient oriented x3 HENMT: Head: normal to inspection Eyes: General: appearance normal, both eyes and all related structures Pupils: Equal, round and reactive pupils present Neck: Neck: normal visual inspection, supple and no JVD Carotids: normal carotid upstroke Resp: Effort & Inspection: normal respiratory effort Auscultation: clear to auscultation bilaterally Cardio: Rate: regular rate Rhythm: regular rhythm Heart sounds: S1 normal heart sound present, S2 normal heart sound present and no murmurs GI: Auscultation: normal bowel sounds Skin: General skin exam: normal color Neuro: General: patient oriented x3 Cranial nerves: Yes Equal, round and reactive pupils present Extrem: General: normal to inspection Psych: Appearance: grossly normal Mental Status: mental status grossly normal Objective Data Vital Signs Vital Signs: Vital Signs - 24 hr 05/21/24 14:58 05/21/24 14:58 05/21/24 15:44 Temperature 36.9 C Pulse Rate 82 82 84 Respiratory Rate 16 Blood Pressure 131/82 131/82 128/57 L Pulse Oximetry 95 Oxygen Delivery 05/21/24 16:04 05/21/24 16:00 05/21/24 16:00 Temperature Pulse Rate 80 83 Respiratory Rate Blood Pressure 128/57 L Pulse Oximetry Oxygen Delivery Room Air 05/21/24 18:14 05/21/24 18:00 05/21/24 19:48 Temperature 36.2 C L Pulse Rate 93 86 Respiratory Rate 18 Blood Pressure 137/78 Pulse Oximetry 95 Oxygen Delivery Room Air 05/21/24 19:58 05/21/24 19:58 05/21/24 20:34 Temperature Pulse Rate 88 Respiratory Rate Blood Pressure 140/96 H 142/70 H Pulse Oximetry Oxygen Delivery 05/21/24 20:00 05/21/24 20:00 05/21/24 19:58 Temperature 36.8 C Pulse Rate 88 74 Respiratory Rate 16 Blood Pressure 122/73 122/73 Pulse Oximetry 96 Oxygen Delivery 05/21/24 23:20 05/21/24 23:41 05/22/24 00:00 Temperature 36.8 C Pulse Rate 66 64 Respiratory Rate 16 Blood Pressure 106/68 Pulse Oximetry 100 Oxygen Delivery Room Air 05/22/24 04:00 05/22/24 04:00 05/22/24 04:00 Temperature 37.1 C Pulse Rate 69 72 Respiratory Rate 16 Blood Pressure 117/84 Pulse Oximetry 95 Oxygen Delivery Room Air 05/22/24 07:44 05/22/24 07:44 05/22/24 07:45 Temperature 36.7 C 36.7 C Pulse Rate 85 85 81 Respiratory Rate 20 20 Blood Pressure 120/97 H 120/97 H 131/75 Pulse Oximetry 96 96 Oxygen Delivery 05/22/24 07:45 05/22/24 08:00 05/22/24 10:00 Temperature Pulse Rate 79 76 71 Respiratory Rate Blood Pressure 137/78 Pulse Oximetry Oxygen Delivery 05/22/24 08:00 05/22/24 12:08 05/22/24 12:23 Temperature 36.6 C Pulse Rate
[2024-05-22] MEDS: dilTIAZem HCL 30 MG TABLET PO (14:25)
[2024-05-22] MEDS: METOPROLOL TARTRATE 50 MG TAB PO (20:44)
[2024-05-22] MEDS: traZODone HCL 50 MG TABLET 200 MG PO (20:45)
[2024-05-23] VITALS (13 sets, daily range): BP systolic 114–136; BP diastolic 63–87; PULSE 56–88; RESP 12–20; TEMP 36.4–36.9; O2SAT 98–100
[2024-05-23] MEDS: HYDROcodone/acetaminophen (*CRX) 5-325 MG TABLET 1 TAB PO ×3 (04:36→21:01)
[2024-05-23 04:54] LABS: Basophils Percent Auto 0.7 % (0.2-1.2); Eosinophils Absolute Auto 0.4 K/mm3 (0-0.3); Eosinophils Percent Auto 8.4 % (0-4.4); Immature Granulocyte Absolute 0.01 K/mm3 (0.00-0.031); Immature Granulocyte Percent A 0.2 % (0-0.5); Immature Platelet Fraction Pct 7.6 % (0.9-11.2); Lymphocytes Absolute Auto 1.35 K/mm3 (0.9-3.2); Lymphocytes Percent Auto 31.4 % (18.3-44.2); Mean Corpuscular Hemoglobin 36.1 pg (26-34); Mean Corpuscular Volume 116.5 fl (80-100); Mean Platelet Volume 12.2 fl (7.4-10.4); Monocytes Absolute Auto 0.5 K/mm3 (0.1-0.6); Monocytes Percent Auto 11.6 % (2.6-8.5); Neutrophils Absolute Auto 2.1 K/mm3 (1.3-6.7); Neutrophils Percent Auto 47.7 % (45.5-73.1); Platelet Count Result 69 k/mm3 (150-375); Red Blood Count 2.49 M/mm3 (4.2-5.4); Red Cell Distribution Width 19.5 % (11.5-14.5); White Blood Count 4.3 K/mm3 (4.5-10.0)
[2024-05-23 05:04] LABS: Alanine Aminotransferase 41 U/L (6-35); Albumin Level 2.9 g/dL (3.5-5.1); Alkaline Phosphatase 119 U/L (38-126); Anion Gap 5 mmol/L (4-12); Aspartate Amino Transferase 28 U/L (14-36); Bilirubin,Total 0.6 mg/dL (0.2-1.3); Blood Urea Nitrogen 11 mg/dL (7-17); Calcium 8.7 mg/dL (8.4-10.2); Carbon Dioxide 25 mmol/L (22-30); Chloride 107 mmol/L (98-107); Estimated CRCL calculation 61 ml/min; Estimated Glomerular Filt Rate > 60; Glucose 92 mg/dL (65-110); Magnesium 1.8 mg/dL (1.6-2.3); Potassium 3.9 mmol/L (3.4-5.0); Sodium 137 mmol/L (137-145)
[2024-05-23 05:29] LABS: Anisocytosis 1+; Platelet Estimate Decreased (Adequate)
[2024-05-23 05:30] LABS: Poikilocytosis 1+; Schistocytes Rare
[2024-05-23] MEDS: CENTRAL LINE FLUSH 10 ML IV PUSH ×2 (05:34→21:07)
[2024-05-23] MEDS: METOPROLOL TARTRATE 50 MG TAB PO (08:38)
[2024-05-23] MEDS: polyethylene glycoL 3350 17 GM POWD.PACK PO (08:38)
[2024-05-23] MEDS: DOXYCYCLINE HYCLATE 100 MG TABLET PO ×2 (08:38→21:01)
[2024-05-23] MEDS: AMOXICILLIN/CLAVULANATE K 875-125 MG TAB 1 TABLET PO ×2 (08:38→21:02)
[2024-05-23] MEDS: ASPIRIN 81 MG CHEWABLE TABLET PO (08:38)
--- NOTE | 2024-05-23 09:31 | PM.PNCARD ---
Progress Note: A&P Assessment and Plan (1) Intermittent atrial flutter: Code(s): I48.92 - Unspecified atrial flutter Status: Acute Assessment and Plan: A flutter vs SVT yesterday, asymptomatic cont metoprolol and start OAC (2) Syncope: Code(s): R55 - Syncope and collapse Status: Acute Assessment and Plan: No syncope since she has been here despite having several episodes of SVT and atrial flutter. (3) Cardiomyopathy: Code(s): I42.9 - Cardiomyopathy, unspecified Status: Acute Assessment and Plan: new diagnosis, optimal medical therapy, further work up for evaluation of etiology including stress test later, TSH, event monitor on discharge to find colleration between syncope, arrhythmia and arrhythmia burden as well change metoprolol tratrate to succinate and add entresto 24-26 po BID Cont to observe in Tele Subjective Date/time seen: 05/23/24 09:31 Interval history: no acute events Review of Systems Review of Systems: All systems reviewed & are unremarkable except as noted in HPI and below Exam Const: General: comfortable and no acute distress Other: Able to lie flat Resp: Auscultation: clear to auscultation bilaterally and lung sounds not diminished Other: No chest wall tenderness Cardio: Rate: regular rate Rhythm: regular rhythm Heart sounds: no gallops, no murmurs and no rubs Extrem: General: no edema Other: Normal capillary refills Intact distal pulses. Objective Data Vital Signs Vital Signs: Vital Signs - 24 hr 05/22/24 10:00 05/22/24 12:08 05/22/24 12:23 Temperature 36.6 C Pulse Rate 71 172 H Respiratory Rate 20 Blood Pressure 95/63 L 120/87 Pulse Oximetry 96 Oxygen Delivery 05/22/24 12:00 05/22/24 11:15 05/22/24 12:00 Temperature Pulse Rate 172 H 166 H Respiratory Rate Blood Pressure 85/67 L Pulse Oximetry Oxygen Delivery Room Air 05/22/24 14:08 05/22/24 14:00 05/22/24 14:56 Temperature 36.9 C Pulse Rate 79 73 Respiratory Rate 20 Blood Pressure 94/62 L 115/61 Pulse Oximetry 98 Oxygen Delivery 05/22/24 16:00 05/22/24 16:00 05/22/24 18:00 Temperature Pulse Rate 73 75 Respiratory Rate Blood Pressure Pulse Oximetry Oxygen Delivery Room Air 05/22/24 20:19 05/22/24 20:19 05/22/24 20:44 Temperature 36.9 C Pulse Rate 78 78 Respiratory Rate 20 Blood Pressure 122/72 129/80 Pulse Oximetry 98 Oxygen Delivery 05/22/24 20:00 05/22/24 23:51 05/22/24 20:00 Temperature 36.9 C Pulse Rate 78 65 76 Respiratory Rate 20 18 Blood Pressure 122/74 Pulse Oximetry 98 98 Oxygen Delivery Room Air 05/22/24 22:00 05/23/24 00:00 05/23/24 00:00 Temperature Pulse Rate 63 65 57 L Respiratory Rate 18 Blood Pressure Pulse Oximetry 98 Oxygen Delivery Room Air 05/23/24 02:00 05/23/24 04:29 05/23/24 04:00 Temperature 36.9 C Pulse Rate 60 56 L 56 L Respiratory Rate 20 20 Blood Pressure 136/74 Pulse Oximetry 98 98 Oxygen Delivery Room Air 05/23/24 04:00 05/23/24 05:26 05/23/24 06:50 Temperature 36.9 C Pulse Rate 67 69 62 Respiratory Rate 20 Blood Pressure 122/63 Pulse Oximetry 98 Oxygen Delivery Intake/Output Intake/Output: Intake & Output 05/20/24 05/21/24 05/22/24 05/23/24 23:59 23:59 23:59 23:59 Intake Total 2001.1 1381.8 1530 640 Output Total 400 1250 1075 Balance 2001.1 981.8 280 -435 Meds/Results Medications: Active Medications Generic Name Dose Route Start Last Admin Trade Name Freq PRN Reason Stop Dose Admin Hydrocodone Bitart/Acetaminophen 1 tab 05/21/24 01:40 05/23/24 04:36 Hydrocodone/Acetaminophen (*Crx) 5-325 Mg Tablet PO 1 tab BID PRN Administration Pain Rated 4-6 Amoxicillin/Clavulanate Potassium 1 tablet 05/21/24 21:00 05/23/24 08:38 Amoxicillin/Clavulanate K 875-125 Mg Tab PO 05/25/24 09:01 1 tablet Q12HR NATO Ad
[2024-05-23 09:37] LABS: Basophils Percent Auto 0.7 % (0.2-1.2); Eosinophils Absolute Auto 0.4 K/mm3 (0-0.3); Eosinophils Percent Auto 8.1 % (0-4.4); Hematocrit 29.3 % (37.0-47.0); Hemoglobin 9.1 g/dL (12.0-15.0); Immature Granulocyte Absolute 0.01 K/mm3 (0.00-0.031); Immature Granulocyte Percent A 0.2 % (0-0.5); Immature Platelet Fraction Pct 7.3 % (0.9-11.2); Lymphocytes Absolute Auto 0.89 K/mm3 (0.9-3.2); Lymphocytes Percent Auto 20.1 % (18.3-44.2); Mean Corpuscular HGB Conc 31.1 g/dl (32-36); Mean Corpuscular Hemoglobin 36.4 pg (26-34); Mean Corpuscular Volume 117.2 fl (80-100); Mean Platelet Volume 11.5 fl (7.4-10.4); Monocytes Absolute Auto 0.4 K/mm3 (0.1-0.6); Neutrophils Absolute Auto 2.7 K/mm3 (1.3-6.7); Neutrophils Percent Auto 60.9 % (45.5-73.1); Platelet Count Result 71 k/mm3 (150-375); Red Cell Distribution Width 19.8 % (11.5-14.5); White Blood Count 4.4 K/mm3 (4.5-10.0)
[2024-05-23 10:15] LABS: Anisocytosis 1+; Platelet Estimate Decreased (Adequate); Poikilocytosis 1+; Schistocytes None Seen
--- NOTE | 2024-05-23 12:03 | PM.IMPN ---
Progress Note: A&P Assessment and Plan (1) Intermittent atrial flutter: Code(s): I48.92 - Unspecified atrial flutter Status: Acute Assessment and Plan: -patient given 6 mg of adenosine in the ER, reports EKG reveals converted to normal sinus rhythm -troponin elevated, 0.157, suspect secondary to demand ischemia -last echocardiogram 03/17/2024, left ventricular systolic function mildly reduced estimated 45-50%, left ventricular diastolic function is grade 1 diastolic dysfunction, left atrial chamber dimension is moderately enlarged S/p cardizem infusion, now on Metoprolol had SVT epsidode this afternoon with rates in 160-170s responded to IV adenosine Repeat ECHO EF 35-40% cardiology adjusted Metoprolol to 10mg daily -cardiology following no AC due to frequent falls (2) Syncope: Code(s): R55 - Syncope and collapse Status: Acute Assessment and Plan: -ongoing > 5 days, episode during chemotherapy treatment today -initiate fall precautions -up with assistance -continue telemetry monitoring -PT/OT eval and treat (3) Elevated troponin: Code(s): R79.89 - Other specified abnormal findings of blood chemistry Status: Acute Assessment and Plan: -pancytopenia (4) Anemia associated with chemotherapy: Code(s): D64.81 - Anemia due to antineoplastic chemotherapy; T45.1X5A - Adverse effect of antineoplastic and immunosuppressive drugs, initial encounter Status: Acute Assessment and Plan: -hgb stable at 9.7 -continue to monitor CMP daily -check ESR, procalcitonin (5) Lymphoma: Code(s): C85.90 - Non-Hodgkin lymphoma, unspecified, unspecified site Status: Acute Assessment and Plan: -continue plan with [facility] (6) Pneumonitis: Code(s): J98.4 - Other disorders of lung Status: Acute Assessment and Plan: Pneumonitis, stable, not requiring oxygen likely from chemotherapy switched antbiotics to augmentin and doxycycline -blood cultures pending -viral PCR negative -consider reverse isolation precaution (7) Cardiomyopathy: Code(s): I42.9 - Cardiomyopathy, unspecified Status: Acute Assessment and Plan: ECHo showed ef 35-40% Patient will do ischemic workup outpatient Continue Metoprolol and Entresto Monitor Plan Continue home medications: Medications have been reviewed unable to reconcile due to med rec not available VTE Prophylaxis: Heparin subQ DIET: Heart healthy diet Anticipated hospital stay: > 2 days Code Status: Full code Subjective Date/time seen: 05/23/24 12:03 Interval history: Patient comfortable at bedside, cardiology started on Entresto today and will be monitor overnight for hemodynamics. Exam Narrative: General: A well-developed, nontoxic, female, resting on the ED stretcher in no acute distress HEENT: PERRL, EOMI. Oral mucosal dry. Neck: Supple. No midline cervical tenderness. Respiratory: Respirations are non- labored and lungs bilateral lower bases with inspiration wheezing, fine crackles Cardiovascular: Regular rate and rhythm with S1-S2. Gastrointestinal: Abdomen is soft, non-tender, and non-distended with positive bowel sounds. Skin: Warm and dry. No rash or lesions on limited exam. Extremities: No cyanosis, clubbing, or edema. Radial and pedal pulses intact. Neurological: Alert and oriented. Cranial nerves 2-12 are grossly intact. No gross focal deficits to casual conversation. Psychiatric: Pleasant and cooperative with normal mood and affect. Judgment and insight intact. Objective Data Vital Signs Vital Signs: Vital Signs - 24 hr 05/22/24 12:08 05/22/24 12:23 05/22/24 14:08 Temperature 97.8 F Pulse Rate 172 H Respiratory Rate 20 Blood Pressure 95/63 L 120/87 94/62 L Pulse Oximetry 96 Oxygen Delivery 05/22/24 14:00 05/22/24 14:56 05/22/24 16:00 Temperature 98.4 F Pulse Rate 79 73 Respiratory Rate 20 Blood P
--- NOTE | 2024-05-23 14:14 | PC.NURSE ---
This patient, Chyna Diaz, was transferred to [facility] on 05/23/24 at 1355. Personal belongings sent with patient. Report given to Kirstni. Appropriate documentation sent with patient.
--- NOTE | 2024-05-23 14:38 | PC.NURSE ---
This patient, Chyna Diaz, was received from [[id number]] on 05/23/24 at 1355. Patient/family oriented to unit policies and routines
[2024-05-23 20:47] LABS: Glucose Point of Care 143 mg/dl (65-105)
[2024-05-23] MEDS: SACUBITRIL/VALSARTAN 24-26 MG TABLET 1 TAB PO (21:01)
[2024-05-23] MEDS: SALIVA SUBSTITUTE COMBO RINSE 237 ML BOTTLE 15 ML PO (21:03)
[2024-05-23] MEDS: traZODone HCL 50 MG TABLET 200 MG PO (21:09)
[2024-05-23] MEDS: CALCIUM CARBONATE (TUMS) 500 MG (200 MG ELEMENTAL) PO (21:47)
[2024-05-24] VITALS (29 sets, daily range): BP systolic 90–137; BP diastolic 56–79; PULSE 56–170; RESP 16–20; TEMP 36.4–37.1; O2SAT 97–100
--- NOTE | 2024-05-24 03:20 | ECG_ITS ---
Test Date: 2024-05-24 03:27:05 Measurements Intervals [place] Rate: 169 P: 0 MO: 0 QRS: -36 QRSD: 130 T: 136 QT: 292 QTc: 490 Interpretive Statements UNCERTAIN REGULAR RHYTHM SUPRAVENTRICULAR TACHYCARDIA VS ATRIAL FLUTTER MARKED LEFT AXIS DEVIATION [QRS AXIS < -30] LEFT BUNDLE BRANCH BLOCK [120+ ms QRS DURATION, 80+ ms Q/S IN V1/V2, 85+ ms R IN I/aVL/V5/V6] Compared to ECG 05/22/2024 12:29:52 Left-axis deviation now present Sinus rhythm no longer present Electronically Signed On 05-24-2024 13:46:42 CDT by Leonid Norris M.D.
[2024-05-24] MEDS: METOPROLOL TARTRATE INJ 5 MG/5 ML VIAL IV PUSH (03:28)
[2024-05-24] MEDS: METOPROLOL SUCCINATE EXT REL 100 MG TABCR PO (03:30)
[2024-05-24] MEDS: METOPROLOL TARTRATE INJ 5 MG/5 ML VIAL (03:43)
--- NOTE | 2024-05-24 04:00 | PC.NURSE ---
This patient, Chyna Diaz, was received from [facility] on 05/24/24 at 0355. Patient/family oriented to unit policies and routines
--- NOTE | 2024-05-24 04:01 | PC.NURSE ---
PT heart rate spiked up in the 150's 160's rapid response was called and pt. was moved to IMU.
--- NOTE | 2024-05-24 04:30 | PM.EVENT ---
Event Note Event Note Event Note: rapid response was called to the patient's room due to heart rate of 150 to 160 objective: Patient awake alert in no distress subjective: I feel fine vitals heart rate 160 blood pressure 148/75 general: Awake alert appears well no acute distress HEENT: Atraumatic normocephalic PERRLA EOM intact supple no JVD no lymphadenopathy respiratory: Clear to auscultation no wheezes rhonchi crackles cardiovascular: Tachycardia abdomen: No abnormal findings extremities: No edema central nervous system: Awake alert oriented x3 no focal sensory motor deficit cranial nerves ii-xii grossly intact skin: Intact assessment and plan: 1. SVT: Lopressor 5 mg IV push x1 repeated by 2nd metoprolol tartrate extended release time however patient maintained at 150 transferred to IMU, cardiology consult
[2024-05-24] MEDS: DIGOXIN 250 MCG TABLET PO (05:20)
[2024-05-24] MEDS: AMIODARONE 150 MG/D5W 100 ML 150 MG/100 ML BAG 600 MG IV CONT (05:54)
[2024-05-24] MEDS: CENTRAL LINE FLUSH 10 ML IV PUSH ×3 (05:56→22:01)
[2024-05-24] MEDS: AMIODARONE 360 MG/D5W 200 ML 360 MG/200 ML BAG 33.33 MG IV CONT (06:06)
--- NOTE | 2024-05-24 06:38 | ECG_ITS ---
Test Date: 2024-05-24 06:49:05 Measurements Intervals [place] Rate: 76 P: 61 OR: 184 QRS: -32 QRSD: 133 T: 147 QT: 436 QTc: 491 Interpretive Statements SINUS RHYTHM WITH OCCASIONAL SUPRAVENTRICULAR PREMATURE COMPLEXES MARKED LEFT AXIS DEVIATION [QRS AXIS < -30] LEFT BUNDLE BRANCH BLOCK [120+ ms QRS DURATION, 80+ ms Q/S IN V1/V2, 85+ ms R IN I/aVL/V5/V6] WARNING: DATA QUALITY MAY AFFECT INTERPRETATION Compared to ECG 05/24/2024 03:27:05 Atrial flutter no longer present Supraventricular tachycardia no longer present Electronically Signed On 05-24-2024 13:49:28 CDT by Leonid Norris M.D.
[2024-05-24 06:45] LABS: Basophils Percent Auto 0.7 % (0.2-1.2); Eosinophils Absolute Auto 0.3 K/mm3 (0-0.3); Eosinophils Percent Auto 5.1 % (0-4.4); Hematocrit 29.6 % (37.0-47.0); Hemoglobin 9.4 g/dL (12.0-15.0); Immature Granulocyte Absolute 0.02 K/mm3 (0.00-0.031); Immature Granulocyte Percent A 0.3 % (0-0.5); Immature Platelet Fraction Pct 7.3 % (0.9-11.2); Lymphocytes Absolute Auto 1.47 K/mm3 (0.9-3.2); Lymphocytes Percent Auto 25.6 % (18.3-44.2); Mean Corpuscular HGB Conc 31.8 g/dl (32-36); Mean Corpuscular Volume 116.5 fl (80-100); Mean Platelet Volume 12.7 fl (7.4-10.4); Monocytes Absolute Auto 0.6 K/mm3 (0.1-0.6); Monocytes Percent Auto 10.8 % (2.6-8.5); Neutrophils Absolute Auto 3.3 K/mm3 (1.3-6.7); Neutrophils Percent Auto 57.5 % (45.5-73.1); Platelet Count Result 78 k/mm3 (150-375); Red Blood Count 2.54 M/mm3 (4.2-5.4); Red Cell Distribution Width 19.5 % (11.5-14.5); White Blood Count 5.7 K/mm3 (4.5-10.0)
[2024-05-24 06:53] LABS: Alanine Aminotransferase 30 U/L (6-35); Albumin Level 2.7 g/dL (3.5-5.1); Alkaline Phosphatase 102 U/L (38-126); Anion Gap 4 mmol/L (4-12); Aspartate Amino Transferase 24 U/L (14-36); Bilirubin,Total 0.7 mg/dL (0.2-1.3); Blood Urea Nitrogen 9 mg/dL (7-17); Calcium 8.5 mg/dL (8.4-10.2); Carbon Dioxide 26 mmol/L (22-30); Chloride 107 mmol/L (98-107); Estimated CRCL calculation 61 ml/min; Estimated Glomerular Filt Rate > 60; Glucose 86 mg/dL (65-110); Magnesium 1.6 mg/dL (1.6-2.3); Potassium 3.7 mmol/L (3.4-5.0); Sodium 137 mmol/L (137-145)
--- NOTE | 2024-05-24 07:59 | PM.PNCARD ---
Progress Note: A&P Assessment and Plan (1) Intermittent atrial flutter: Code(s): I48.92 - Unspecified atrial flutter Status: Acute Assessment and Plan: A flutter recurrent episodes Plan Continue amiodarone infusion for 24 hours and shift to admit or oral 400 mg daily Oral anticoagulation however there was a concern about her recurrent falls. I believe patient will need to have oral anticoagulation versus left atrial appendage closure. Plan for anticoagulation to be discussed again with her regular director internal control tomorrow. (2) Syncope: Code(s): R55 - Syncope and collapse Status: Acute Assessment and Plan: No syncope since she has been here despite having several episodes of SVT and atrial flutter. (3) Cardiomyopathy: Code(s): I42.9 - Cardiomyopathy, unspecified Status: Acute Assessment and Plan: new diagnosis, optimal medical therapy, further work up for evaluation of etiology including stress test later, TSH, event monitor on discharge to find colleration between syncope and arrhythmia burden as well Continue metoprolol succinate and Entresto Cont to observe in Tele Subjective Date/time seen: 05/24/24 07:59 Interval history: No acute events Recurrent episode of atrial flutter that converted back to sinus rhythm was amiodarone Review of Systems Review of Systems: All systems reviewed & are unremarkable except as noted in HPI and below Exam Const: General: comfortable and no acute distress Other: Able to lie flat Resp: Auscultation: clear to auscultation bilaterally and lung sounds not diminished Other: No chest wall tenderness Cardio: Rate: regular rate Rhythm: regular rhythm Heart sounds: no gallops, no murmurs and no rubs Extrem: General: no edema Other: Normal capillary refills Intact distal pulses. Objective Data Vital Signs Vital Signs: Vital Signs - 24 hr 05/23/24 08:00 05/23/24 08:00 05/23/24 10:00 Temperature Pulse Rate 82 77 Respiratory Rate Blood Pressure Pulse Oximetry Oxygen Delivery Room Air 05/23/24 11:59 05/23/24 12:00 05/23/24 15:00 Temperature 36.4 C 36.7 C Pulse Rate 57 L 67 69 Respiratory Rate 12 18 Blood Pressure 115/87 114/80 Pulse Oximetry 98 100 Oxygen Delivery 05/23/24 16:00 05/23/24 20:00 05/23/24 20:00 Temperature 36.5 C 36.5 C Pulse Rate 85 77 82 Respiratory Rate 18 20 Blood Pressure 120/81 127/79 Pulse Oximetry 98 98 Oxygen Delivery 05/23/24 20:00 05/23/24 20:00 05/24/24 03:28 Temperature 36.5 C Pulse Rate 88 73 157 H Respiratory Rate 20 Blood Pressure 132/85 Pulse Oximetry 98 Oxygen Delivery 05/24/24 03:43 05/24/24 04:00 05/24/24 03:30 Temperature 36.6 C Pulse Rate 150 H 154 H 150 H Respiratory Rate 16 Blood Pressure 90/60 L Pulse Oximetry 99 Oxygen Delivery 05/24/24 00:00 05/24/24 05:20 05/24/24 05:54 Temperature Pulse Rate 75 152 H 151 H Respiratory Rate Blood Pressure Pulse Oximetry Oxygen Delivery 05/24/24 06:06 05/24/24 03:30 05/24/24 03:45 Temperature 36.4 C L 36.4 C L Pulse Rate 73 155 H 151 H Respiratory Rate 18 18 Blood Pressure 108/74 137/79 Pulse Oximetry 100 98 Oxygen Delivery 05/24/24 03:22 05/24/24 03:22 05/24/24 04:00 Temperature 36.4 C L 36.4 C L Pulse Rate 170 H 170 H 153 H Respiratory Rate 20 20 Blood Pressure 113/71 113/71 Pulse Oximetry 97 97 Oxygen Delivery Room Air 05/24/24 04:00 05/24/24 06:00 Temperature Pulse Rate 87 Respiratory Rate Blood Pressure Pulse Oximetry Oxygen Delivery Room Air Intake/Output Intake/Output: Intake & Output 05/21/24 05/22/24 05/23/24 05/24/24 23:59 23:59 23:59 23:59 Intake Total 1381.8 1530 1630 150 Output Total 400 1250 1075 250 Balance 981.8 280 555 -100 Meds/Results Medications: Active Medications Generic Name Dose Route Start Last Admin Trade Name Freq
[2024-05-24 08:12] LABS: Anisocytosis 1+; Macrocytosis 2+ (NORMAL); Platelet Estimate Decreased (Adequate); Schistocytes None Seen
[2024-05-24] MEDS: DOXYCYCLINE HYCLATE 100 MG TABLET PO ×2 (09:12→21:56)
[2024-05-24] MEDS: polyethylene glycoL 3350 17 GM POWD.PACK PO (09:12)
[2024-05-24] MEDS: AMOXICILLIN/CLAVULANATE K 875-125 MG TAB 1 TABLET PO ×2 (09:12→21:56)
[2024-05-24] MEDS: SACUBITRIL/VALSARTAN 24-26 MG TABLET 1 TAB PO ×2 (09:12→21:56)
[2024-05-24] MEDS: HYDROcodone/acetaminophen (*CRX) 5-325 MG TABLET 1 TAB PO ×2 (09:18→17:43)
[2024-05-24] MEDS: MECLIZINE HCL 25 MG TABLET PO (10:16)
[2024-05-24] MEDS: ONDANSETRON HCL ODT 4 MG TABLET 8 MG PO (10:16)
[2024-05-24] MEDS: CALCIUM CARBONATE (TUMS) 500 MG (200 MG ELEMENTAL) PO (11:08)
[2024-05-24] MEDS: POTASSIUM CHLORIDE 20 MEQ ER TABLET 40 MEQ PO (11:08)
[2024-05-24] MEDS: MAGNESIUM SULF 2 GM/WATER 50ML 2 GM/50 ML BAG IVPB (11:08)
[2024-05-24] MEDS: AMIODARONE 360 MG/D5W 200 ML 360 MG/200 ML BAG 16.67 MG IV CONT (11:09)
--- NOTE | 2024-05-24 14:58 | PM.IMPN ---
Progress Note: A&P Assessment and Plan (1) Intermittent atrial flutter: Code(s): I48.92 - Unspecified atrial flutter Status: Acute Assessment and Plan: -patient given 6 mg of adenosine in the ER, reports EKG reveals converted to normal sinus rhythm -troponin elevated, 0.157, suspect secondary to demand ischemia -last echocardiogram 03/17/2024, left ventricular systolic function mildly reduced estimated 45-50%, left ventricular diastolic function is grade 1 diastolic dysfunction, left atrial chamber dimension is moderately enlarged S/p cardizem infusion, now on Metoprolol had SVT epsidode this afternoon with rates in 160-170s responded to IV adenosine Repeat ECHO EF 35-40% cardiology adjusted Metoprolol to 100mg daily Now on Amiodarone infusion as patient went into SVT overnight Keep Mg above 2, adn K above 4 -cardiology following no AC due to frequent falls (2) Syncope: Code(s): R55 - Syncope and collapse Status: Acute Assessment and Plan: -ongoing > 5 days, episode during chemotherapy treatment today -initiate fall precautions -up with assistance -continue telemetry monitoring -PT/OT eval and treat (3) Elevated troponin: Code(s): R79.89 - Other specified abnormal findings of blood chemistry Status: Acute Assessment and Plan: -pancytopenia (4) Anemia associated with chemotherapy: Code(s): D64.81 - Anemia due to antineoplastic chemotherapy; T45.1X5A - Adverse effect of antineoplastic and immunosuppressive drugs, initial encounter Status: Acute Assessment and Plan: -hgb stable at 9.4 -continue to monitor CMP daily -check ESR, procalcitonin (5) Lymphoma: Code(s): C85.90 - Non-Hodgkin lymphoma, unspecified, unspecified site Status: Acute Assessment and Plan: -continue plan with Cancer Center (6) Pneumonitis: Code(s): J98.4 - Other disorders of lung Status: Acute Assessment and Plan: Pneumonitis, stable, not requiring oxygen likely from chemotherapy Continue augmentin and doxycycline -blood cultures pending -viral PCR negative -consider reverse isolation precaution (7) Cardiomyopathy: Code(s): I42.9 - Cardiomyopathy, unspecified Status: Acute Assessment and Plan: ECHo showed ef 35-40% Patient will do ischemic workup outpatient Continue Metoprolol and Entresto Monitor Plan Continue home medications: Medications have been reviewed unable to reconcile due to med rec not available VTE Prophylaxis: Heparin subQ DIET: Heart healthy diet Anticipated hospital stay: > 2 days Code Status: Full code Subjective Date/time seen: 05/24/24 14:58 Interval history: No acute events Recurrent episode of atrial flutter that converted back to sinus rhythm was amiodarone Exam Narrative: General: A well-developed, nontoxic, female, resting on the ED stretcher in no acute distress HEENT: PERRL, EOMI. Oral mucosal dry. Neck: Supple. No midline cervical tenderness. Respiratory: Respirations are non- labored and lungs bilateral lower bases with inspiration wheezing, fine crackles Cardiovascular: Regular rate and rhythm with S1-S2. Gastrointestinal: Abdomen is soft, non-tender, and non-distended with positive bowel sounds. Skin: Warm and dry. No rash or lesions on limited exam. Extremities: No cyanosis, clubbing, or edema. Radial and pedal pulses intact. Neurological: Alert and oriented. Cranial nerves 2-12 are grossly intact. No gross focal deficits to casual conversation. Psychiatric: Pleasant and cooperative with normal mood and affect. Judgment and insight intact. Objective Data Vital Signs Vital Signs: Vital Signs - 24 hr 05/23/24 15:00 05/23/24 16:00 05/23/24 20:00 Temperature 98.0 F 97.7 F Pulse Rate 69 85 77 Respiratory Rate 18 18 Blood Pressure 114/80 120/81 Pulse Oximetry 100 98 Oxygen Delivery 05/23/24 20:00 05/23/24 20:00 05/23/24 20
[2024-05-24] MEDS: traZODone HCL 50 MG TABLET 200 MG PO (21:59)
[2024-05-25] VITALS (19 sets, daily range): BP systolic 118–149; BP diastolic 46–90; PULSE 56–78; RESP 16–20; TEMP 36.3–36.9; O2SAT 96–100
[2024-05-25 05:56] LABS: Glucose Point of Care 100 mg/dl (65-105)
[2024-05-25 06:24] LABS: Basophils Percent Auto 0.9 % (0.2-1.2); Eosinophils Absolute Auto 0.4 K/mm3 (0-0.3); Eosinophils Percent Auto 9.1 % (0-4.4); Hematocrit 27.8 % (37.0-47.0); Hemoglobin 8.5 g/dL (12.0-15.0); Immature Granulocyte Absolute 0.01 K/mm3 (0.00-0.031); Immature Granulocyte Percent A 0.2 % (0-0.5); Immature Platelet Fraction Pct 6.8 % (0.9-11.2); Lymphocytes Absolute Auto 1.15 K/mm3 (0.9-3.2); Lymphocytes Percent Auto 26.1 % (18.3-44.2); Mean Corpuscular HGB Conc 30.6 g/dl (32-36); Mean Corpuscular Hemoglobin 35.7 pg (26-34); Mean Corpuscular Volume 116.8 fl (80-100); Mean Platelet Volume 11.3 fl (7.4-10.4); Monocytes Absolute Auto 0.5 K/mm3 (0.1-0.6); Monocytes Percent Auto 11.1 % (2.6-8.5); Neutrophils Absolute Auto 2.3 K/mm3 (1.3-6.7); Neutrophils Percent Auto 52.6 % (45.5-73.1); Platelet Count Result 75 k/mm3 (150-375); Red Blood Count 2.38 M/mm3 (4.2-5.4); Red Cell Distribution Width 19.2 % (11.5-14.5); White Blood Count 4.4 K/mm3 (4.5-10.0)
[2024-05-25 06:35] LABS: Alanine Aminotransferase 24 U/L (6-35); Albumin Level 2.3 g/dL (3.5-5.1); Alkaline Phosphatase 88 U/L (38-126); Anion Gap 3 mmol/L (4-12); Aspartate Amino Transferase 22 U/L (14-36); Bilirubin,Total 0.4 mg/dL (0.2-1.3); Blood Urea Nitrogen 10 mg/dL (7-17); Carbon Dioxide 25 mmol/L (22-30); Chloride 107 mmol/L (98-107); Estimated CRCL calculation 61 ml/min; Estimated Glomerular Filt Rate > 60; Glucose 124 mg/dL (65-110); Potassium 3.8 mmol/L (3.4-5.0); Sodium 135 mmol/L (137-145)
[2024-05-25 06:48] LABS: Hypochromasia 1+; Macrocytosis 1+ (NORMAL); Ovalocytes 1+; Platelet Estimate Decreased (Adequate); Schistocytes None Seen
[2024-05-25] MEDS: ASPIRIN 81 MG CHEWABLE TABLET PO (08:29)
[2024-05-25] MEDS: METOPROLOL SUCCINATE EXT REL 100 MG TABCR PO (08:30)
[2024-05-25] MEDS: DOXYCYCLINE HYCLATE 100 MG TABLET PO (08:30)
[2024-05-25] MEDS: AMOXICILLIN/CLAVULANATE K 875-125 MG TAB 1 TABLET PO (08:30)
[2024-05-25] MEDS: SACUBITRIL/VALSARTAN 24-26 MG TABLET 1 TAB PO ×2 (08:30→20:53)
[2024-05-25] MEDS: CENTRAL LINE FLUSH 10 ML IV PUSH ×3 (08:31→20:54)
[2024-05-25] MEDS: HYDROcodone/acetaminophen (*CRX) 5-325 MG TABLET 1 TAB PO ×2 (08:37→20:53)
--- NOTE | 2024-05-25 09:02 | PM.PNCARD ---
Progress Note: A&P Assessment and Plan (1) Cardiomyopathy: Code(s): I42.9 - Cardiomyopathy, unspecified Status: Acute (2) Intermittent atrial flutter: Code(s): I48.92 - Unspecified atrial flutter Status: Acute Plan 79-year-old lady with a complicated history of lymphoma, significant anemia and falling was been found to have atrial fib with RVR as well as some LV systolic dysfunction by ECHO which previously was not noted. She is on guideline directed medical therapy for this and has improved clinically. She will need to be placed on oral amiodarone to maintain sinus rhythm. I agree with our notes from last week that she is a poor candidate for systemic anticoagulation because of generalized weakness, frequent falling as well as significant chronic anemia. I therefore would not recommend anticoagulation. From my perspective she is stable enough for discharge. I will start amiodarone at 400 mg orally daily with intentions to wean that to a lower dosage as an outpatient. Chino Conde MD [facility] Subjective Date/time seen: Date of service: 05/25/24 09:02 Interval history: No acute events Recurrent episode of atrial flutter that converted back to sinus rhythm was amiodarone 05/25/2024: Patient feels well offers no complaints, hoping to go home. Intravenous amiodarone was stopped yesterday evening because of sinus bradycardia which was asymptomatic. Guideline directed medical therapy for LV dysfunction was titrated in over the weekend. Exam Const: General: comfortable, no acute distress, alert and awake Orientation/consciousness: patient oriented x3 Other: Able to lie flat HENMT: Head: normal to inspection Eyes: General: appearance normal, both eyes and all related structures Pupils: Equal, round and reactive pupils present Neck: Neck: normal visual inspection, supple and no JVD Carotids: normal carotid upstroke Resp: Effort & Inspection: normal respiratory effort Auscultation: clear to auscultation bilaterally and lung sounds not diminished Other: No chest wall tenderness Cardio: Rate: regular rate Rhythm: regular rhythm Heart sounds: S1 normal heart sound present, S2 normal heart sound present, no gallops, no murmurs and no rubs GI: Auscultation: normal bowel sounds Skin: General skin exam: normal color Neuro: General: patient oriented x3 Cranial nerves: Yes Equal, round and reactive pupils present Extrem: General: normal to inspection and no edema Other: Normal capillary refills Intact distal pulses. Psych: Appearance: grossly normal Mental Status: mental status grossly normal Objective Data Vital Signs Vital Signs: Vital Signs - 24 hr 05/24/24 09:13 05/24/24 09:13 05/24/24 10:00 Temperature 36.4 C 36.4 C Pulse Rate 70 73 66 Respiratory Rate 20 20 Blood Pressure 130/59 L 122/60 Pulse Oximetry 98 98 Oxygen Delivery 05/24/24 11:09 05/24/24 11:53 05/24/24 12:00 Temperature 37.1 C Pulse Rate 87 65 60 Respiratory Rate 20 Blood Pressure 123/67 Pulse Oximetry 99 Oxygen Delivery 05/24/24 12:00 05/24/24 14:00 05/24/24 16:00 Temperature 36.8 C Pulse Rate 62 56 L Respiratory Rate 20 Blood Pressure 120/56 L Pulse Oximetry 99 Oxygen Delivery Room Air 05/24/24 16:00 05/24/24 16:00 05/24/24 18:00 Temperature Pulse Rate 56 L 63 Respiratory Rate Blood Pressure Pulse Oximetry Oxygen Delivery Room Air 05/24/24 19:47 05/24/24 19:50 05/24/24 19:49 Temperature 36.5 C Pulse Rate 62 Respiratory Rate 20 Blood Pressure 114/61 114/61 110/76 Pulse Oximetry 98 Oxygen Delivery 05/24/24 19:49 05/24/24 21:55 05/24/24 20:00 Temperature Pulse Rate 61 80 Respiratory Rate Blood Pressure 117/63 120/59 L Pulse Oximetry Oxygen Delivery 05/24/24 22:08 05/24/24 20:00 05/24/24 23:15 Temperature Pulse Rate 60 57 L 56 L Respiratory Rate Blood Pressure
[2024-05-25] MEDS: ONDANSETRON HCL ODT 4 MG TABLET 8 MG PO (11:38)
[2024-05-25] MEDS: CALCIUM CARBONATE (TUMS) 500 MG (200 MG ELEMENTAL) PO (11:38)
[2024-05-25] MEDS: AMIODARONE HCL 200 MG TABLET 400 MG PO (11:45)
--- NOTE | 2024-05-25 12:47 | PM.IMPN ---
Progress Note: A&P Assessment and Plan (1) Intermittent atrial flutter: Code(s): I48.92 - Unspecified atrial flutter Status: Acute Assessment and Plan: -patient given 6 mg of adenosine in the ER, reports EKG reveals converted to normal sinus rhythm -troponin elevated, 0.157, suspect secondary to demand ischemia -last echocardiogram 03/17/2024, left ventricular systolic function mildly reduced estimated 45-50%, left ventricular diastolic function is grade 1 diastolic dysfunction, left atrial chamber dimension is moderately enlarged S/p cardizem infusion, now on Metoprolol had SVT epsidode this afternoon with rates in 160-170s responded to IV adenosine Repeat ECHO EF 35-40% cardiology adjusted Metoprolol to 100mg daily S/p Amiodarone infusion, started on PO Amiodarone and will be monitored overnight for hemodynamics Keep Mg above 2, adn K above 4 -cardiology following no AC due to frequent falls (2) Syncope: Code(s): R55 - Syncope and collapse Status: Acute Assessment and Plan: -ongoing > 5 days, episode during chemotherapy treatment today -initiate fall precautions -up with assistance -continue telemetry monitoring -PT/OT eval and treat (3) Elevated troponin: Code(s): R79.89 - Other specified abnormal findings of blood chemistry Status: Acute Assessment and Plan: -pancytopenia (4) Anemia associated with chemotherapy: Code(s): D64.81 - Anemia due to antineoplastic chemotherapy; T45.1X5A - Adverse effect of antineoplastic and immunosuppressive drugs, initial encounter Status: Acute Assessment and Plan: -hgb stable at 9.4 -continue to monitor CMP daily -check ESR, procalcitonin (5) Lymphoma: Code(s): C85.90 - Non-Hodgkin lymphoma, unspecified, unspecified site Status: Acute Assessment and Plan: -continue plan with Cancer Center (6) Pneumonitis: Code(s): J98.4 - Other disorders of lung Status: Acute Assessment and Plan: Pneumonitis, stable, not requiring oxygen likely from chemotherapy Completed augmentin and doxycycline -blood cultures pending -viral PCR negative -consider reverse isolation precaution (7) Cardiomyopathy: Code(s): I42.9 - Cardiomyopathy, unspecified Status: Acute Assessment and Plan: ECHo showed ef 35-40% Patient will do ischemic workup outpatient Continue Metoprolol and Entresto adn Aspirin well tolerated so far Monitor Plan is to discharge tomorrow Plan Continue home medications: Medications have been reviewed unable to reconcile due to med rec not available VTE Prophylaxis: Heparin subQ DIET: Heart healthy diet Anticipated hospital stay: > 2 days Code Status: Full code Subjective Date/time seen: 05/25/24 12:47 Interval history: patient now back in NSR Cardiology wants patient monitored overnight on PO amiodarone Exam Narrative: General: A well-developed, nontoxic, female, resting on the ED stretcher in no acute distress HEENT: PERRL, EOMI. Oral mucosal dry. Neck: Supple. No midline cervical tenderness. Respiratory: Respirations are non- labored and lungs bilateral lower bases with inspiration wheezing, fine crackles Cardiovascular: Regular rate and rhythm with S1-S2. Gastrointestinal: Abdomen is soft, non-tender, and non-distended with positive bowel sounds. Skin: Warm and dry. No rash or lesions on limited exam. Extremities: No cyanosis, clubbing, or edema. Radial and pedal pulses intact. Neurological: Alert and oriented. Cranial nerves 2-12 are grossly intact. No gross focal deficits to casual conversation. Psychiatric: Pleasant and cooperative with normal mood and affect. Judgment and insight intact. Objective Data Vital Signs Vital Signs: Vital Signs - 24 hr 05/24/24 14:00 05/24/24 16:00 05/24/24 16:00 Temperature 98.3 F Pulse Rate 62 56 L 56 L Respiratory Rate 20 Blood Pressure 120/56 L Pulse
[2024-05-25] MEDS: traZODone HCL 50 MG TABLET 200 MG PO (20:53)
[2024-05-26] VITALS (15 sets, daily range): BP systolic 119–148; BP diastolic 53–91; PULSE 60–73; RESP 16–18; TEMP 36.1–36.9; O2SAT 95–100
[2024-05-26] MEDS: CENTRAL LINE FLUSH 10 ML IV PUSH ×2 (05:58→14:30)
[2024-05-26 08:21] LABS: Basophils Percent Auto 0.8 % (0.2-1.2); Eosinophils Absolute Auto 0.4 K/mm3 (0-0.3); Hematocrit 30.5 % (37.0-47.0); Hemoglobin 9.7 g/dL (12.0-15.0); Immature Granulocyte Absolute 0.02 K/mm3 (0.00-0.031); Immature Granulocyte Percent A 0.4 % (0-0.5); Immature Platelet Fraction Pct 6.7 % (0.9-11.2); Lymphocytes Percent Auto 30.7 % (18.3-44.2); Mean Corpuscular HGB Conc 31.8 g/dl (32-36); Mean Corpuscular Hemoglobin 36.3 pg (26-34); Mean Corpuscular Volume 114.2 fl (80-100); Monocytes Absolute Auto 0.5 K/mm3 (0.1-0.6); Monocytes Percent Auto 11.1 % (2.6-8.5); Neutrophils Absolute Auto 2.3 K/mm3 (1.3-6.7); Platelet Count Result 81 k/mm3 (150-375); Red Blood Count 2.67 M/mm3 (4.2-5.4); Red Cell Distribution Width 18.9 % (11.5-14.5); White Blood Count 4.9 K/mm3 (4.5-10.0)
[2024-05-26 08:23] LABS: Alanine Aminotransferase 24 U/L (6-35); Albumin Level 2.7 g/dL (3.5-5.1); Alkaline Phosphatase 87 U/L (38-126); Anion Gap 4 mmol/L (4-12); Aspartate Amino Transferase 26 U/L (14-36); Bilirubin,Total 0.5 mg/dL (0.2-1.3); Blood Urea Nitrogen 10 mg/dL (7-17); Calcium 8.6 mg/dL (8.4-10.2); Carbon Dioxide 27 mmol/L (22-30); Chloride 107 mmol/L (98-107); Estimated CRCL calculation 61 ml/min; Estimated Glomerular Filt Rate > 60; Glucose 86 mg/dL (65-110); Potassium 4.1 mmol/L (3.4-5.0); Sodium 138 mmol/L (137-145)
[2024-05-26] MEDS: ASPIRIN 81 MG CHEWABLE TABLET PO (09:14)
[2024-05-26] MEDS: AMIODARONE HCL 200 MG TABLET 400 MG PO (09:14)
[2024-05-26] MEDS: METOPROLOL SUCCINATE EXT REL 100 MG TABCR PO (09:15)
[2024-05-26] MEDS: SACUBITRIL/VALSARTAN 24-26 MG TABLET 1 TAB PO (09:15)
[2024-05-26 09:32] LABS: Hypochromasia 1+; Platelet Estimate Decreased (Adequate)
[2024-05-26 09:33] LABS: Anisocytosis 2+; Macrocytosis 1+ (NORMAL); Schistocytes None Seen
[2024-05-26] MEDS: HYDROcodone/acetaminophen (*CRX) 5-325 MG TABLET 1 TAB PO ×2 (10:13→15:50)
[2024-05-26] MEDS: HEPARIN SODIUM LOCK FLUSH 500 UNITS/5 ML SYRINGE IV PUSH (15:50)
--- NOTE | 2024-05-26 18:58 | PM.DS ---
DS: Admitting Diagnosis Discharge Date 05/26/24 Admitting Diagnosis Syncope DS: Discharge Diagnosis Discharge Diagnosis (1) Intermittent atrial flutter: Code(s): I48.92 - Unspecified atrial flutter Status: Acute Assessment and Plan: -patient given 6 mg of adenosine in the ER, reports EKG reveals converted to normal sinus rhythm -troponin elevated, 0.157, suspect secondary to demand ischemia -last echocardiogram 03/17/2024, left ventricular systolic function mildly reduced estimated 45-50%, left ventricular diastolic function is grade 1 diastolic dysfunction, left atrial chamber dimension is moderately enlarged S/p cardizem infusion, now on Metoprolol had SVT epsidode this afternoon with rates in 160-170s responded to IV adenosine Repeat ECHO EF 35-40% cardiology adjusted Metoprolol to 100mg daily S/p Amiodarone infusion, started on PO Amiodarone and will be monitored overnight for hemodynamics Keep Mg above 2, adn K above 4 -cardiology following no AC due to frequent falls (2) Syncope: Code(s): R55 - Syncope and collapse Status: Acute Assessment and Plan: episode during chemotherapy treatment today -initiate fall precautions -up with assistance -PT/OT eval and treat (3) Elevated troponin: Code(s): R79.89 - Other specified abnormal findings of blood chemistry Status: Acute Assessment and Plan: -pancytopenia (4) Anemia associated with chemotherapy: Code(s): D64.81 - Anemia due to antineoplastic chemotherapy; T45.1X5A - Adverse effect of antineoplastic and immunosuppressive drugs, initial encounter Status: Acute Assessment and Plan: -hgb stable at 9.4 n (5) Lymphoma: Code(s): C85.90 - Non-Hodgkin lymphoma, unspecified, unspecified site Status: Acute Assessment and Plan: -continue plan with Cancer Center (6) Pneumonitis: Code(s): J98.4 - Other disorders of lung Status: Acute Assessment and Plan: Pneumonitis, stable, not requiring oxygen likely from chemotherapy Completed augmentin and doxycycline -blood cultures pending -viral PCR negative (7) Cardiomyopathy: Code(s): I42.9 - Cardiomyopathy, unspecified Status: Acute Assessment and Plan: ECHo showed ef 35-40% Patient will do ischemic workup outpatient Continue Metoprolol and Entresto adn Aspirin well tolerated so far Monitor Plan is to discharge DS: Summary Hospital Course Hospital Course: 79-year-old female presenting with syncope. Patient is coming from cancer center. States that she has been having episodes of passing out. It often happens when she is using the bathroom and bearing down. Today she was going into the cancer center and again had an episode today told her to come to the ER. States that she just feels very lightheaded and feels like she is about to pass out. Denies any pain or shortness of breath. No fevers or leg swelling. Cardiology was consult. Patient was started on amiodarone 400 mg and to follow-up with the deicer repairer pneumatic with intention to wean to lower dose as an outpatient. Patient is also on metoprolol 100 mg. Patient is not a candidate for anticoagulation because of the frequent fall. In regards to her lymphoma patient has follow-up with the Cancer Center. Upon discharge patient has to see the PCP and deicer repairer pneumatic and deicer repairer pneumatic within a week. Time Spent with Patient Time attestation: Total time spent providing and/or coordinating discharge services:45 mins DS: Data Data Completed and Pending Labs on day of discharge: Labs from last 24 hours 05/26/24 07:59 WBC 4.9 RBC 2.67 L Hgb 9.7 L Hct 30.5 L MCV 114.2 H MCH 36.3 H MCHC 31.8 L RDW 18.9 H Plt Count 81 L MPV 12.0 H Immature Gran % (Auto) 0.4 Neut % (Auto) 48.0 Lymph % (Auto) 30.7 [place] % (Auto) 11.1 H Eos % (Auto) 9.0 H Baso % (Auto) 0.8 Lymph # (Auto) 1.50 [place] # (Auto) 0.5 Eos # (Auto)
== END 2024-05-26 17:38 | disposition home health service (06) | DRG 309 ==
LOC: ANHED 15:19 → ANHIMU 19:29 → ANH3MEDSUR 05-23 13:57 → ANHIMU 05-24 04:05
PROVIDERS: Emergency Medicine; Internal Medicine; Nurse Practitioner; Admitting Provider Family Medicine; Emergency Provider Emergency Medicine; PCP Family Medicine; Visit Provider General Practice
DX: I48.92 Unspecified atrial flutter (principal); C85.90 Non-Hodgkin lymphoma, unspecified, unspecified site; I24.89 Other forms of acute ischemic heart disease; D61.818 Other pancytopenia; R55 Syncope and collapse; I47.10 Supraventricular tachycardia, unspecified; I42.9 Cardiomyopathy, unspecified; D64.81 Anemia due to antineoplastic chemotherapy; T45.1X5A Adverse effect of antineoplastic and immunosuppressive drugs, initial encounter; J98.4 Other disorders of lung; Z96.649 Presence of unspecified artificial hip joint; Z96.652 Presence of left artificial knee joint; R29.6 Repeated falls; Z90.710 Acquired absence of both cervix and uterus
CPT/HCPCS: 36415; 71046; 80047; 80053; 81001; 82607; 82746; 82948; 83605; 83690; 83735; 83880; 84145; 84484; 85025; 85049; 85055; 85610; 85652; 85730; 87040; 87086; 93005; 93306; 93971; 96361; 96365; 96366; 96367; 96368; 96372; 96375; 97161; 99285; A9270; G0378; J0153; J0282; J0696; J1642; J1644; J3475; J7030; J7040

== ENCOUNTER 2024-08-04 08:41 | Outpatient (CLI) | payer MEDICARE, SELFPAY ==
--- NOTE | ~2024-08-04 | CT_ITS ---
EXAMINATION: CT chest abdomen pelvis w con DATE: 08/04/2024 09:40 INDICATION: Diffuse large B-cell lymphoma. TECHNIQUE: Computed tomography (CT) of the chest, abdomen, and pelvis was performed with 100 mL Omnip aque 350 intravenous contrast. Automated exposure control and iterative reconstruction technique were employed. The dose-length product was 1017.43 mGy-cm. COMPARISON: CT chest, abdomen, and pelvis 04/10/2024 FINDINGS: CHEST CT: The lungs demonstrate smooth septal thickening in bilateral patchy groundglass opacities, consistent with pulmonary edema. There is mild atelectasis bilaterally. There are small pleural effusions. Calci fied right lung nodules and calcified right hilar lymph nodes are consistent with old granulomatous d isease. The heart size is normal. No pericardial effusion. There is a left subclavian port with tip a t superior cavoatrial junction. There is severe cervical and thoracic spondylosis. There is mild manager renewable energy bonnie anterior wedging of multiple vertebral bodies. ABDOMEN/PELVIS CT: The liver, gallbladder, spleen, pancreas, and adrenal glands are normal. There are cysts in the kidne ys measuring up to 2.2 cm on the right. There are no dilated loops of bowel. The appendix is normal. There are no pathologically enlarged lymph nodes. There is a small volume of pelvic ascites. Body wal l edema is noted. 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 There are b ilateral total hip arthroplasties. There is severe lumbar spondylosis. IMPRESSION: 1. No evidence of lymphoma. 2. Mild pulmonary edema. 3. Small pleural effusions. 4. Small volume of ascites. Reviewed, dictated and finalized at location A.
[2024-08-04 09:18] LABS: Estimated Glomerular Filt Rate > 60
== END 2024-08-04 08:42 | disposition home or self-care (01) ==
LOC: ANHIMG 08:53
PROVIDERS: PCP Family Medicine; Visit Provider Internal Medicine Hematology & Oncology
DX: C83.30 Diffuse large B-cell lymphoma, unspecified site (principal); R91.8 Other nonspecific abnormal finding of lung field; J90 Pleural effusion, not elsewhere classified
CPT/HCPCS: 71260; 74177; Q9967

== ENCOUNTER 2024-09-23 10:30 | Outpatient (RCR) | payer MEDICARE, MEDICAID, SELFPAY ==
--- NOTE | 2023-11-28 12:28 | PHAR ---
Addendum entered by Lane Guerrero, PharmD 01/22/24 11:13: Biosimilar substitution per protocol: NEULASTA will be subbed to FULPHILA (PEGFILGRASTIM-jmdb (biocon). Patient will be notified of substitution by nurse during education or at their first treatment. Original Note: Biosimilar substitution per protocol: NEULASTA will be subbed to FYLNETRA(PEGFILGRASTIM-PBBK) (AMNEAL). Patient will be notified of substitution by nurse during education or at their first treatment. Biosimilar substitution per protocol: RITUXAN will be subbed to RITUXIMAB-ARRX (RIABNI) (AMGEN). Patient will be notified of substitution by nurse during education or at their first treatment.
[2023-12-04 09:11] LABS: Basophils Absolute Auto 0.1 K/mm3 (0.0-0.1); Basophils Percent Auto 0.4 % (0.2-1.2); Eosinophils Absolute Auto 0.6 K/mm3 (0-0.3); Eosinophils Percent Auto 3.2 % (0-4.4); Hematocrit 30.7 % (37.0-47.0); Hemoglobin 9.6 g/dL (12.0-15.0); Immature Granulocyte Absolute 0.21 K/mm3 (0.00-0.031); Immature Granulocyte Percent A 1.1 % (0-0.5); Lymphocytes Absolute Auto 1.64 K/mm3 (0.9-3.2); Lymphocytes Percent Auto 8.8 % (18.3-44.2); Mean Corpuscular HGB Conc 31.3 g/dl (32-36); Mean Corpuscular Volume 92.7 fl (80-100); Mean Platelet Volume 9.4 fl (7.4-10.4); Monocytes Absolute Auto 0.5 K/mm3 (0.1-0.6); Monocytes Percent Auto 2.7 % (2.6-8.5); Neutrophils Absolute Auto 15.5 K/mm3 (1.3-6.7); Neutrophils Percent Auto 83.8 % (45.5-73.1); Platelet Count Result 562 k/mm3 (150-375); Red Blood Count 3.31 M/mm3 (4.2-5.4); Red Cell Distribution Width 14.7 % (11.5-14.5); White Blood Count 18.6 K/mm3 (4.5-10.0)
[2023-12-04 09:15] LABS: Anisocytosis 1+ (NORMAL); Atypical Lymphocytes Present; Hypochromasia 1+ (NORMAL); Microcytosis 1+ (NORMAL); Platelet Estimate Increased (Adequate); Schistocytes None Seen (NORMAL)
[2023-12-04 09:49] LABS: Alanine Aminotransferase 12 U/L (6-35); Albumin Level 3.1 g/dL (3.5-5.1); Alkaline Phosphatase 153 U/L (38-126); Anion Gap 5 mmol/L (8-16); Aspartate Amino Transferase 35 U/L (14-36); Bilirubin,Total 0.3 mg/dL (0.2-1.3); Blood Urea Nitrogen 16 mg/dL (7-17); Calcium 8.9 mg/dL (8.4-10.2); Carbon Dioxide 27 mmol/L (22-30); Chloride 103 mmol/L (98-107); Estimated Glomerular Filt Rate > 60; Glucose 180 mg/dL (65-110); Potassium 4.1 mmol/L (3.4-5.0); Sodium 135 mmol/L (137-145); Uric Acid 5.4 mg/dL (2.5-7.5)
[2023-12-04 10:04] LABS: Hepatitis B Surface Antigen Negative (Negative)
[2023-12-04 10:16] VITALS: BP 132/65; PULSE 72; TEMP 36.1; O2SAT 94
[2023-12-04] MEDS: ACETAMINOPHEN 325 MG TABLET 650 MG PO (10:30)
[2023-12-04] MEDS: diphenhydrAMINE HCl INJ 50 MG/ML VIAL 25 MG IV PUSH (10:31)
[2023-12-04] MEDS: FAMOTIDINE 20 MG/2 ML VIAL IV PUSH (10:31)
[2023-12-04] MEDS: dexAMETHasone SOD 4 MG/ML INJ 12 MG in SODIUM CHLORIDE 0.9% IV 100 ML 206 MG IVPB (10:35)
[2023-12-04] MEDS: RITUXIMAB ARRX IVPB (11:11)
[2023-12-04] MEDS: SODIUM CHLORIDE 0.9% IVPB (11:11)
[2023-12-04 14:43] VITALS: BP 136/80
[2023-12-04] MEDS: HEPARIN SODIUM LOCK FLUSH 500 UNITS/5 ML SYRINGE IV PUSH (14:46)
[2023-12-04 17:26] LABS: Iron 35 ug/dL (37-170)
[2023-12-04 17:35] LABS: Percent Iron Saturation 14 % (20-50)
[2023-12-04 17:37] LABS: Folic Acid 13.5 ng/mL (2.76->20)
[2023-12-04 17:38] LABS: Vitamin B12 > 1000.0 pg/mL (239-931)
[2023-12-05 13:38] VITALS: BP 144/63; PULSE 72; TEMP 36.4; O2SAT 97
[2023-12-05] MEDS: PALONOSETRON HCL 0.25 MG/5 ML VIAL IV PUSH (14:04)
[2023-12-05] MEDS: OLANZapine DISPERTAB 5 MG PO (14:04)
[2023-12-05] MEDS: FOSAPREPITANT DIMEGLUMINE 150 MG in SODIUM CHLORIDE 0.9% IV 150 ML 300 MG IVPB (14:07)
[2023-12-05] MEDS: dexAMETHasone SOD 4 MG/ML INJ 12 MG in SODIUM CHLORIDE 0.9% IV 100 ML 206 MG IVPB (14:07)
[2023-12-05] MEDS: DOXORUBICIN 85 MG IV PUSH (14:46)
[2023-12-05] MEDS: vinCRIStine SULFATE (*CHEMO) 2 MG in SODIUM CHLORIDE 0.9% IV 50 ML 312 MG IVPB (15:01)
[2023-12-05] MEDS: SODIUM CHLORIDE 0.9% IVPB (15:19)
[2023-12-05] MEDS: CYCLOPHOSPHAMIDE IVPB (15:19)
--- NOTE | 2023-12-05 15:29 | PHAR ---
[place] stimulating factor was held due to absolute neutrophil count over 8,000 per standing order. ANC over 15.
[2023-12-05] MEDS: HEPARIN SODIUM LOCK FLUSH 500 UNITS/5 ML SYRINGE IV PUSH (15:56)
[2023-12-05 16:09] VITALS: BP 144/71
[2023-12-11 13:55] LABS: Iron 130 ug/dL (37-170)
[2023-12-11 14:10] LABS: Percent Iron Saturation 47 % (20-50)
[2023-12-11 15:08] LABS: Folic Acid 7.5 ng/mL (2.76->20); Vitamin B12 > 1000.0 pg/mL (239-931)
[2023-12-25 09:36] LABS: Hematocrit 31.2 % (37.0-47.0); Hemoglobin 9.6 g/dL (12.0-15.0); Mean Corpuscular HGB Conc 30.8 g/dl (32-36); Mean Corpuscular Hemoglobin 29.4 pg (26-34); Mean Corpuscular Volume 95.4 fl (80-100); Mean Platelet Volume 8.9 fl (7.4-10.4); Platelet Count Result 517 k/mm3 (150-375); Red Blood Count 3.27 M/mm3 (4.2-5.4); Red Cell Distribution Width 16.4 % (11.5-14.5); White Blood Count 5.8 K/mm3 (4.5-10.0)
[2023-12-25 09:40] LABS: Blood Urea Nitrogen 15 mg/dL (8-26); Carbon Dioxide 23 mmol/L (22-30); Chloride 107 mmol/L (98-109); Estimated Glomerular Filt Rate > 60; Glucose 109 mg/dL (70-105); Ionized Calcium (POC) 1.17 mmol/L (1.11-1.31); Potassium 4.3 mmol/L (3.5-4.9); Sodium 139 mmol/L (138-146)
[2023-12-25 09:43] LABS: Band Neutrophils Percent 9 % (0-6); Eosinophils Absolute Manual 0.05 K/mm3 (0.02-0.50); Eosinophils Percent Manual 1 % (0-4); Lymphocytes Absolute Manual 1.45 K/mm3 (1.1-4.5); Metamyelocytes Percent 1 %; Monocytes Absolute Manual 0.52 K/mm3 (0.1-0.90); Monocytes Percent Manual 9 % (3-9); Neutrophils Absolute Manual 3.71 K/mm3 (1.7-7.2); Neutrophils Percent Manual 55 % (46-73); Total Cells Counted 100
[2023-12-25 09:44] LABS: Hypochromasia 1+; Platelet Estimate Increased (Adequate); Schistocytes None Seen
[2023-12-25 10:22] VITALS: BP 132/83; PULSE 70; TEMP 36.1; O2SAT 98
[2023-12-25] MEDS: ACETAMINOPHEN 325 MG TABLET 650 MG PO (10:55)
[2023-12-25] MEDS: OLANZapine DISPERTAB 5 MG PO (10:56)
[2023-12-25] MEDS: diphenhydrAMINE HCl INJ 50 MG/ML VIAL 25 MG IV PUSH (10:57)
[2023-12-25] MEDS: FAMOTIDINE 20 MG/2 ML VIAL IV PUSH (10:57)
[2023-12-25] MEDS: PALONOSETRON HCL 0.25 MG/5 ML VIAL IV PUSH (10:57)
[2023-12-25] MEDS: dexAMETHasone SOD 4 MG/ML INJ 12 MG in SODIUM CHLORIDE 0.9% IV 100 ML 206 MG IVPB (11:06)
[2023-12-25] MEDS: FOSAPREPITANT DIMEGLUMINE 150 MG in SODIUM CHLORIDE 0.9% IV 150 ML 300 MG IVPB (11:07)
[2023-12-25 11:29] LABS: Alanine Aminotransferase 13 U/L (6-35); Albumin Level 3.2 g/dL (3.5-5.1); Alkaline Phosphatase 83 U/L (38-126); Anion Gap 5 mmol/L (8-16); Aspartate Amino Transferase 22 U/L (14-36); Bilirubin,Total 0.2 mg/dL (0.2-1.3); Blood Urea Nitrogen 17 mg/dL (7-17); Calcium 8.9 mg/dL (8.4-10.2); Carbon Dioxide 21 mmol/L (22-30); Chloride 110 mmol/L (98-107); Estimated Glomerular Filt Rate > 60; Glucose 110 mg/dL (65-110); Potassium 4.3 mmol/L (3.4-5.0); Sodium 136 mmol/L (137-145)
[2023-12-25] MEDS: RITUXIMAB ARRX IVPB (11:52)
[2023-12-25] MEDS: SODIUM CHLORIDE 0.9% IVPB ×2 (11:52→14:28)
[2023-12-25] MEDS: DOXORUBICIN 85 MG IV PUSH (13:46)
[2023-12-25] MEDS: vinCRIStine SULFATE (*CHEMO) 2 MG in SODIUM CHLORIDE 0.9% IV 50 ML 312 MG IVPB (14:09)
[2023-12-25] MEDS: CYCLOPHOSPHAMIDE IVPB (14:28)
[2023-12-25 15:18] VITALS: BP 149/75
[2023-12-26 15:10] VITALS: BP 143/69; PULSE 70; TEMP 36.4; O2SAT 98
[2023-12-26] MEDS: PEGFILGRASTIM-PBBK 6 MG/0.6 ML SYRINGE SUB-Q (15:17)
[2024-01-15 09:12] LABS: Basophils Absolute Auto 0.1 K/mm3 (0.0-0.1); Basophils Percent Auto 0.7 % (0.2-1.2); Hematocrit 30.3 % (37.0-47.0); Hemoglobin 9.5 g/dL (12.0-15.0); Immature Granulocyte Absolute 0.15 K/mm3 (0.00-0.031); Immature Granulocyte Percent A 1.5 % (0-0.5); Lymphocytes Absolute Auto 1.04 K/mm3 (0.9-3.2); Lymphocytes Percent Auto 10.6 % (18.3-44.2); Mean Corpuscular HGB Conc 31.4 g/dl (32-36); Mean Corpuscular Hemoglobin 30.4 pg (26-34); Mean Corpuscular Volume 96.8 fl (80-100); Mean Platelet Volume 9.7 fl (7.4-10.4); Monocytes Absolute Auto 1.4 K/mm3 (0.1-0.6); Monocytes Percent Auto 14.5 % (2.6-8.5); Neutrophils Absolute Auto 7.2 K/mm3 (1.3-6.7); Neutrophils Percent Auto 72.7 % (45.5-73.1); Nucleated Red Blood Cells Perc 1.1 % (0.0-0.2); Platelet Count Result 311 k/mm3 (150-375); Red Blood Count 3.13 M/mm3 (4.2-5.4); Red Cell Distribution Width 20.5 % (11.5-14.5); White Blood Count 9.9 K/mm3 (4.5-10.0)
[2024-01-15 09:19] LABS: Blood Urea Nitrogen 13 mg/dL (8-26); Carbon Dioxide 23 mmol/L (22-30); Chloride 107 mmol/L (98-109); Estimated Glomerular Filt Rate 54; Glucose 102 mg/dL (70-105); Ionized Calcium (POC) 1.19 mmol/L (1.11-1.31); Potassium 4.3 mmol/L (3.5-4.9); Sodium 140 mmol/L (138-146)
[2024-01-15 10:11] VITALS: BP 105/45; PULSE 72; TEMP 36.4; O2SAT 97
[2024-01-15] MEDS: ACETAMINOPHEN 325 MG TABLET 650 MG PO (10:37)
[2024-01-15] MEDS: FAMOTIDINE 20 MG/2 ML VIAL IV PUSH (10:39)
[2024-01-15] MEDS: PALONOSETRON HCL 0.25 MG/5 ML VIAL IV PUSH (10:39)
[2024-01-15] MEDS: diphenhydrAMINE HCl INJ 50 MG/ML VIAL 25 MG IV PUSH (10:43)
[2024-01-15] MEDS: FOSAPREPITANT DIMEGLUMINE 150 MG in SODIUM CHLORIDE 0.9% IV 150 ML 300 MG IVPB (10:50)
[2024-01-15] MEDS: dexAMETHasone SOD 4 MG/ML INJ 12 MG in SODIUM CHLORIDE 0.9% IV 100 ML 206 MG IVPB (10:50)
[2024-01-15] MEDS: RITUXIMAB ARRX IVPB (11:27)
[2024-01-15] MEDS: SODIUM CHLORIDE 0.9% IVPB ×2 (11:27→13:50)
[2024-01-15 12:57] LABS: Alanine Aminotransferase 14 U/L (6-35); Albumin Level 3.4 g/dL (3.5-5.1); Alkaline Phosphatase 80 U/L (38-126); Anion Gap 3 mmol/L (4-12); Aspartate Amino Transferase 22 U/L (14-36); Bilirubin,Total 0.3 mg/dL (0.2-1.3); Blood Urea Nitrogen 14 mg/dL (7-17); Calcium 8.9 mg/dL (8.4-10.2); Carbon Dioxide 23 mmol/L (22-30); Chloride 110 mmol/L (98-107); Estimated Glomerular Filt Rate > 60; Glucose 100 mg/dL (65-110); Potassium 4.2 mmol/L (3.4-5.0); Sodium 136 mmol/L (137-145)
[2024-01-15] MEDS: DOXORUBICIN 85 MG IV PUSH (13:18)
--- NOTE | 2024-01-15 13:27 | PHAR ---
CALLED PROVIDER AND PATIENT WILL RECIEVE FLYNETRA TOMORROW 01-16-24 BASE ON ANC OF 7.2.
[2024-01-15] MEDS: vinCRIStine SULFATE (*CHEMO) 2 MG in SODIUM CHLORIDE 0.9% IV 50 ML 312 MG IVPB (13:33)
[2024-01-15] MEDS: CYCLOPHOSPHAMIDE IVPB (13:50)
[2024-01-15 14:26] VITALS: BP 108/76
[2024-01-15] MEDS: HEPARIN SODIUM LOCK FLUSH 500 UNITS/5 ML SYRINGE IV PUSH (14:31)
[2024-01-16 15:11] VITALS: BP 116/52; PULSE 72; TEMP 37.2; O2SAT 98
[2024-01-16] MEDS: PEGFILGRASTIM-PBBK 6 MG/0.6 ML SYRINGE SUB-Q (15:21)
--- NOTE | 2024-01-28 10:11 | PHAR ---
Biosimilar substitution per protocol: PROCRIT will be subbed to RETACRIT (EPOETIN-TRUNG EPBX) (PFIZER). Patient will be notified of substitution by nurse during education or at their first treatment.
[2024-01-30 13:06] LABS: Hematocrit 23.1 % (37.0-47.0); Mean Corpuscular HGB Conc 30.3 g/dl (32-36); Mean Corpuscular Hemoglobin 31.3 pg (26-34); Mean Corpuscular Volume 103.1 fl (80-100); Mean Platelet Volume 9.8 fl (7.4-10.4); Platelet Count Result 273 k/mm3 (150-375); Red Blood Count 2.24 M/mm3 (4.2-5.4); White Blood Count 6.5 K/mm3 (4.5-10.0)
[2024-01-30 13:16] LABS: Band Neutrophils Percent 4 % (0-6); Lymphocytes Absolute Manual 0.58 K/mm3 (1.1-4.5); Metamyelocytes Percent 3 %; Monocytes Absolute Manual 0.39 K/mm3 (0.1-0.90); Monocytes Percent Manual 6 % (3-9); Neutrophils Absolute Manual 5.33 K/mm3 (1.7-7.2); Neutrophils Percent Manual 78 % (46-73); Nucleated Red Blood Cells 1 %; Platelet Estimate Adequate (Adequate); Schistocytes None Seen; Total Cells Counted 100
[2024-01-30 13:17] LABS: Anisocytosis 1+; Hypochromasia 1+; Microcytosis 1+ (NORMAL)
[2024-01-30 13:26] VITALS: BP 118/53; PULSE 88; TEMP 36.6; O2SAT 97
[2024-01-30] MEDS: EPOETIN ALFA EPBX 30000 UNITS SUB-Q (13:37)
[2024-02-05 08:41] LABS: Basophils Percent Auto 0.5 % (0.2-1.2); Hematocrit 35.7 % (37.0-47.0); Hemoglobin 11.1 g/dL (12.0-15.0); Immature Granulocyte Absolute 0.11 K/mm3 (0.00-0.031); Immature Granulocyte Percent A 1.4 % (0-0.5); Lymphocytes Absolute Auto 0.38 K/mm3 (0.9-3.2); Lymphocytes Percent Auto 4.8 % (18.3-44.2); Mean Corpuscular HGB Conc 31.1 g/dl (32-36); Mean Corpuscular Hemoglobin 30.4 pg (26-34); Mean Corpuscular Volume 97.8 fl (80-100); Mean Platelet Volume 9.1 fl (7.4-10.4); Monocytes Absolute Auto 0.4 K/mm3 (0.1-0.6); Monocytes Percent Auto 4.4 % (2.6-8.5); Neutrophils Absolute Auto 7.1 K/mm3 (1.3-6.7); Neutrophils Percent Auto 88.9 % (45.5-73.1); Nucleated Red Blood Cells Perc 0.5 % (0.0-0.2); Platelet Count Result 341 k/mm3 (150-375); Red Blood Count 3.65 M/mm3 (4.2-5.4); Red Cell Distribution Width 24.7 % (11.5-14.5)
[2024-02-05 08:49] LABS: Blood Urea Nitrogen 9 mg/dL (8-26); Carbon Dioxide 25 mmol/L (22-30); Chloride 109 mmol/L (98-109); Estimated Glomerular Filt Rate > 60; Glucose 106 mg/dL (70-105); Ionized Calcium (POC) 1.14 mmol/L (1.11-1.31); Potassium 4.7 mmol/L (3.5-4.9); Sodium 140 mmol/L (138-146)
[2024-02-05 09:17] VITALS: BP 122/92; PULSE 73; RESP 16; TEMP 36.6; O2SAT 96
[2024-02-05] MEDS: PALONOSETRON HCL 0.25 MG/5 ML VIAL IV PUSH (09:53)
[2024-02-05] MEDS: diphenhydrAMINE HCl INJ 50 MG/ML VIAL 25 MG IV PUSH (09:54)
[2024-02-05] MEDS: FAMOTIDINE 20 MG/2 ML VIAL IV PUSH (09:54)
[2024-02-05] MEDS: ACETAMINOPHEN 325 MG TABLET 650 MG PO (09:55)
[2024-02-05] MEDS: FOSAPREPITANT DIMEGLUMINE 150 MG in SODIUM CHLORIDE 0.9% IV 150 ML 300 MG IVPB (10:06)
[2024-02-05] MEDS: dexAMETHasone SOD 4 MG/ML INJ 12 MG in SODIUM CHLORIDE 0.9% IV 100 ML 206 MG IVPB (10:06)
[2024-02-05] MEDS: SODIUM CHLORIDE 0.9% IVPB ×2 (10:42→13:19)
[2024-02-05] MEDS: RITUXIMAB ARRX IVPB (10:42)
[2024-02-05 10:44] LABS: Alanine Aminotransferase 13 U/L (6-35); Albumin Level 3.2 g/dL (3.5-5.1); Alkaline Phosphatase 80 U/L (38-126); Anion Gap 1 mmol/L (4-12); Aspartate Amino Transferase 24 U/L (14-36); Bilirubin,Total 0.3 mg/dL (0.2-1.3); Blood Urea Nitrogen 10 mg/dL (7-17); Calcium 8.6 mg/dL (8.4-10.2); Carbon Dioxide 23 mmol/L (22-30); Chloride 111 mmol/L (98-107); Estimated Glomerular Filt Rate > 60; Glucose 105 mg/dL (65-110); Potassium 4.6 mmol/L (3.4-5.0); Sodium 135 mmol/L (137-145)
[2024-02-05] MEDS: DOXORUBICIN 85 MG IV PUSH (12:33)
[2024-02-05] MEDS: vinCRIStine SULFATE (*CHEMO) 2 MG in SODIUM CHLORIDE 0.9% IV 50 ML 312 MG IVPB (12:52)
[2024-02-05] MEDS: CYCLOPHOSPHAMIDE IVPB (13:19)
--- NOTE | 2024-02-05 13:52 | PHAR ---
SPOKE WITH AND HE WANT'S PATIENT TO GET FULPHILA TOMORROW BASED ON PATIENT'S ANC.
[2024-02-05 13:56] VITALS: BP 150/85
[2024-02-05] MEDS: HEPARIN SODIUM LOCK FLUSH 500 UNITS/5 ML SYRINGE IV PUSH (14:00)
[2024-02-06 14:43] VITALS: BP 118/57; PULSE 66; TEMP 36.6; O2SAT 97
[2024-02-06] MEDS: PEGFILGRASTIM-JMDB 6 MG/0.6 ML SYRINGE SUB-Q (14:47)
[2024-02-20 13:02] LABS: Hematocrit 29.2 % (37.0-47.0); Hemoglobin 9.2 g/dL (12.0-15.0); Mean Corpuscular HGB Conc 31.5 g/dl (32-36); Mean Corpuscular Hemoglobin 31.7 pg (26-34); Mean Corpuscular Volume 100.7 fl (80-100); Mean Platelet Volume 9.9 fl (7.4-10.4); Platelet Count Result 176 k/mm3 (150-375); Red Cell Distribution Width 24.5 % (11.5-14.5); White Blood Count 8.7 K/mm3 (4.5-10.0)
[2024-02-20 13:11] LABS: Band Neutrophils Percent 12 % (0-6); Lymphocytes Absolute Manual 0.52 K/mm3 (1.1-4.5); Metamyelocytes Percent 1 %; Monocytes Absolute Manual 0.69 K/mm3 (0.1-0.90); Monocytes Percent Manual 8 % (3-9); Neutrophils Absolute Manual 7.39 K/mm3 (1.7-7.2); Neutrophils Percent Manual 73 % (46-73); Platelet Estimate Adequate (Adequate); Schistocytes None Seen; Total Cells Counted 100
[2024-02-20 13:12] LABS: Anisocytosis 1+; Microcytosis 1+ (NORMAL)
[2024-02-20 13:16] VITALS: BP 118/81; PULSE 72; TEMP 36.2; O2SAT 97
[2024-02-20] MEDS: EPOETIN ALFA EPBX 30000 UNITS SUB-Q (13:45)
[2024-02-26 08:52] LABS: Basophils Percent Auto 0.5 % (0.2-1.2); Hematocrit 28.6 % (37.0-47.0); Hemoglobin 8.8 g/dL (12.0-15.0); Immature Granulocyte Absolute 0.27 K/mm3 (0.00-0.031); Immature Granulocyte Percent A 3.6 % (0-0.5); Lymphocytes Absolute Auto 0.62 K/mm3 (0.9-3.2); Lymphocytes Percent Auto 8.2 % (18.3-44.2); Mean Corpuscular HGB Conc 30.8 g/dl (32-36); Mean Corpuscular Hemoglobin 31.9 pg (26-34); Mean Corpuscular Volume 103.6 fl (80-100); Mean Platelet Volume 9.5 fl (7.4-10.4); Monocytes Percent Auto 13.5 % (2.6-8.5); Neutrophils Absolute Auto 5.6 K/mm3 (1.3-6.7); Neutrophils Percent Auto 74.2 % (45.5-73.1); Nucleated Red Blood Cells Perc 1.5 % (0.0-0.2); Platelet Count Result 270 k/mm3 (150-375); Red Blood Count 2.76 M/mm3 (4.2-5.4); Red Cell Distribution Width 25.9 % (11.5-14.5); White Blood Count 7.5 K/mm3 (4.5-10.0)
[2024-02-26 08:58] LABS: Blood Urea Nitrogen 9 mg/dL (8-26); Carbon Dioxide 23 mmol/L (22-30); Chloride 107 mmol/L (98-109); Estimated Glomerular Filt Rate > 60; Glucose 96 mg/dL (70-105); Ionized Calcium (POC) 1.25 mmol/L (1.11-1.31); Potassium 4.2 mmol/L (3.5-4.9); Sodium 138 mmol/L (138-146)
[2024-02-26 10:15] VITALS: BP 126/67; PULSE 69; TEMP 36.6; O2SAT 94
[2024-02-26 10:25] LABS: Alanine Aminotransferase 12 U/L (6-35); Alkaline Phosphatase 83 U/L (38-126); Anion Gap 2 mmol/L (4-12); Aspartate Amino Transferase 22 U/L (14-36); Bilirubin,Total 0.3 mg/dL (0.2-1.3); Blood Urea Nitrogen 11 mg/dL (7-17); Calcium 8.7 mg/dL (8.4-10.2); Carbon Dioxide 24 mmol/L (22-30); Chloride 111 mmol/L (98-107); Estimated Glomerular Filt Rate > 60; Glucose 97 mg/dL (65-110); Potassium 4.1 mmol/L (3.4-5.0); Sodium 137 mmol/L (137-145)
[2024-02-26] MEDS: PALONOSETRON HCL 0.25 MG/5 ML VIAL IV PUSH (10:34)
[2024-02-26] MEDS: ACETAMINOPHEN 325 MG TABLET 650 MG PO (10:35)
[2024-02-26] MEDS: diphenhydrAMINE HCl INJ 50 MG/ML VIAL 25 MG IV PUSH (10:36)
[2024-02-26] MEDS: FAMOTIDINE 20 MG/2 ML VIAL IV PUSH (10:36)
--- NOTE | 2024-02-26 10:41 | PHAR ---
Addendum entered by Lane Guerrero, PharmD 02/26/24 10:46: Patient will be receiving injection tomorrow. ANC is 5.6, patient has been receiving it with ANC over 7. Original Note: [place] stimulating factor was held due to absolute neutrophil count between 5,000 and 8,000 per verbal order from doctor. ANC 5.6.
[2024-02-26] MEDS: FOSAPREPITANT DIMEGLUMINE 150 MG in SODIUM CHLORIDE 0.9% IV 150 ML 300 MG IVPB (10:48)
[2024-02-26] MEDS: dexAMETHasone SOD 4 MG/ML INJ 12 MG in SODIUM CHLORIDE 0.9% IV 100 ML 206 MG IVPB (10:49)
[2024-02-26] MEDS: RITUXIMAB ARRX IVPB (11:48)
[2024-02-26] MEDS: SODIUM CHLORIDE 0.9% IVPB ×2 (11:48→14:31)
[2024-02-26] MEDS: EPOETIN ALFA EPBX 30000 UNITS SUB-Q (11:51)
[2024-02-26] MEDS: DOXORUBICIN 85 MG IV PUSH (13:44)
[2024-02-26] MEDS: vinCRIStine SULFATE (*CHEMO) 2 MG in SODIUM CHLORIDE 0.9% IV 50 ML 312 MG IVPB (14:00)
[2024-02-26] MEDS: CYCLOPHOSPHAMIDE IVPB (14:31)
[2024-02-26 15:04] VITALS: BP 124/64
[2024-02-26] MEDS: HEPARIN SODIUM LOCK FLUSH 500 UNITS/5 ML SYRINGE IV PUSH (15:10)
[2024-02-27 14:41] VITALS: BP 145/58; PULSE 84; TEMP 36.9; O2SAT 97
[2024-02-27] MEDS: PEGFILGRASTIM-JMDB 6 MG/0.6 ML SYRINGE SUB-Q (14:48)
[2024-03-03 12:51] LABS: Hematocrit 27.6 % (37.0-47.0); Hemoglobin 8.5 g/dL (12.0-15.0); Immature Granulocyte Absolute 0.11 K/mm3 (0.00-0.031); Immature Platelet Fraction Pct 4.8 % (0.9-11.2); Lymphocytes Absolute Auto 0.18 K/mm3 (0.9-3.2); Mean Corpuscular HGB Conc 30.8 g/dl (32-36); Mean Corpuscular Hemoglobin 33.2 pg (26-34); Mean Corpuscular Volume 107.8 fl (80-100); Mean Platelet Volume 10.1 fl (7.4-10.4); Neutrophils Absolute Auto 0.1 K/mm3 (1.3-6.7); Platelet Count Result 28 k/mm3 (150-375); Red Blood Count 2.56 M/mm3 (4.2-5.4); Red Cell Distribution Width 24.2 % (11.5-14.5)
[2024-03-03 12:52] LABS: White Blood Count 0.5 K/mm3 (4.5-10.0)
[2024-03-12 13:46] LABS: Hematocrit 22.2 % (37.0-47.0); Mean Corpuscular HGB Conc 31.1 g/dl (32-36); Mean Corpuscular Hemoglobin 34.2 pg (26-34); Mean Corpuscular Volume 109.9 fl (80-100); Mean Platelet Volume 10.7 fl (7.4-10.4); Platelet Count Result 144 k/mm3 (150-375); Red Blood Count 2.02 M/mm3 (4.2-5.4); Red Cell Distribution Width 24.1 % (11.5-14.5); White Blood Count 7.3 K/mm3 (4.5-10.0)
[2024-03-12 13:50] LABS: Blood Urea Nitrogen 17 mg/dL (8-26); Carbon Dioxide 21 mmol/L (22-30); Chloride 107 mmol/L (98-109); Estimated Glomerular Filt Rate 40; Glucose 87 mg/dL (70-105); Ionized Calcium (POC) 1.21 mmol/L (1.11-1.31); Sodium 137 mmol/L (138-146)
[2024-03-12 13:50] LABS: Hemoglobin 6.9 g/dL (12.0-15.0)
[2024-03-12 13:53] LABS: Band Neutrophils Percent 6 % (0-6); Lymphocytes Absolute Manual 0.43 K/mm3 (1.1-4.5); Metamyelocytes Percent 3 %; Monocytes Absolute Manual 0.87 K/mm3 (0.1-0.90); Monocytes Percent Manual 12 % (3-9); Neutrophils Absolute Manual 5.76 K/mm3 (1.7-7.2); Neutrophils Percent Manual 73 % (46-73); Total Cells Counted 100
[2024-03-12 13:54] LABS: Hypochromasia 2+; Platelet Estimate Slightly Decreased (Adequate); Schistocytes None Seen
[2024-03-18 09:12] LABS: Basophils Absolute Auto 0.1 K/mm3 (0.0-0.1); Basophils Percent Auto 0.6 % (0.2-1.2); Eosinophils Percent Auto 0.1 % (0-4.4); Hematocrit 27.6 % (37.0-47.0); Hemoglobin 8.9 g/dL (12.0-15.0); Immature Granulocyte Absolute 0.14 K/mm3 (0.00-0.031); Immature Granulocyte Percent A 1.8 % (0-0.5); Lymphocytes Absolute Auto 0.29 K/mm3 (0.9-3.2); Lymphocytes Percent Auto 3.7 % (18.3-44.2); Mean Corpuscular HGB Conc 32.2 g/dl (32-36); Mean Corpuscular Hemoglobin 33.3 pg (26-34); Mean Corpuscular Volume 103.4 fl (80-100); Mean Platelet Volume 9.2 fl (7.4-10.4); Monocytes Absolute Auto 0.7 K/mm3 (0.1-0.6); Monocytes Percent Auto 8.7 % (2.6-8.5); Neutrophils Absolute Auto 6.6 K/mm3 (1.3-6.7); Neutrophils Percent Auto 85.1 % (45.5-73.1); Nucleated Red Blood Cells Perc 0.3 % (0.0-0.2); Platelet Count Result 185 k/mm3 (150-375); Red Blood Count 2.67 M/mm3 (4.2-5.4); Red Cell Distribution Width 25.3 % (11.5-14.5); White Blood Count 7.7 K/mm3 (4.5-10.0)
[2024-03-18 09:28] LABS: Blood Urea Nitrogen 13 mg/dL (8-26); Carbon Dioxide 22 mmol/L (22-30); Chloride 107 mmol/L (98-109); Estimated Glomerular Filt Rate > 60; Glucose 92 mg/dL (70-105); Ionized Calcium (POC) 1.23 mmol/L (1.11-1.31); Potassium 4.3 mmol/L (3.5-4.9); Sodium 139 mmol/L (138-146)
[2024-03-18 09:51] VITALS: BP 116/88; PULSE 80; TEMP 36.6; O2SAT 95
[2024-03-18] MEDS: PALONOSETRON HCL 0.25 MG/5 ML VIAL IV PUSH (10:22)
[2024-03-18] MEDS: diphenhydrAMINE HCl INJ 50 MG/ML VIAL 25 MG IV PUSH (10:23)
[2024-03-18] MEDS: FAMOTIDINE 20 MG/2 ML VIAL IV PUSH (10:23)
[2024-03-18] MEDS: EPOETIN ALFA EPBX 30000 UNITS SUB-Q (10:24)
[2024-03-18] MEDS: ACETAMINOPHEN 325 MG TABLET 650 MG PO (10:24)
[2024-03-18] MEDS: FOSAPREPITANT DIMEGLUMINE 150 MG in SODIUM CHLORIDE 0.9% IV 150 ML 300 MG IVPB (10:29)
[2024-03-18] MEDS: dexAMETHasone SOD 4 MG/ML INJ 12 MG in SODIUM CHLORIDE 0.9% IV 100 ML 206 MG IVPB (10:30)
[2024-03-18] MEDS: RITUXIMAB ARRX IVPB (11:18)
[2024-03-18] MEDS: SODIUM CHLORIDE 0.9% IVPB ×2 (11:18→13:50)
[2024-03-18 11:44] LABS: Alanine Aminotransferase 11 U/L (6-35); Alkaline Phosphatase 73 U/L (38-126); Anion Gap 5 mmol/L (4-12); Aspartate Amino Transferase 23 U/L (14-36); Bilirubin,Total 0.3 mg/dL (0.2-1.3); Blood Urea Nitrogen 14 mg/dL (7-17); Calcium 8.6 mg/dL (8.4-10.2); Carbon Dioxide 20 mmol/L (22-30); Chloride 111 mmol/L (98-107); Estimated Glomerular Filt Rate > 60; Glucose 89 mg/dL (65-110); Potassium 4.2 mmol/L (3.4-5.0); Sodium 136 mmol/L (137-145)
[2024-03-18] MEDS: vinCRIStine SULFATE (*CHEMO) 2 MG in SODIUM CHLORIDE 0.9% IV 50 ML 312 MG IVPB (13:35)
[2024-03-18] MEDS: DOXORUBICIN 85 MG IV PUSH (13:41)
[2024-03-18] MEDS: CYCLOPHOSPHAMIDE IVPB (13:50)
[2024-03-18 14:31] VITALS: BP 137/69
[2024-03-18] MEDS: HEPARIN SODIUM LOCK FLUSH 500 UNITS/5 ML SYRINGE IV PUSH (14:35)
[2024-03-24 08:47] LABS: Basophils Percent Auto 0.5 % (0.2-1.2); Eosinophils Percent Auto 0.3 % (0-4.4); Hematocrit 26.3 % (37.0-47.0); Hemoglobin 8.4 g/dL (12.0-15.0); Immature Granulocyte Absolute 0.18 K/mm3 (0.00-0.031); Immature Granulocyte Percent A 4.9 % (0-0.5); Lymphocytes Absolute Auto 0.15 K/mm3 (0.9-3.2); Lymphocytes Percent Auto 4.1 % (18.3-44.2); Mean Corpuscular HGB Conc 31.9 g/dl (32-36); Mean Corpuscular Hemoglobin 34.4 pg (26-34); Mean Corpuscular Volume 107.8 fl (80-100); Mean Platelet Volume 9.8 fl (7.4-10.4); Monocytes Percent Auto 0.3 % (2.6-8.5); Neutrophils Absolute Auto 3.3 K/mm3 (1.3-6.7); Neutrophils Percent Auto 89.9 % (45.5-73.1); Platelet Count Result 97 k/mm3 (150-375); Red Blood Count 2.44 M/mm3 (4.2-5.4); Red Cell Distribution Width 22.8 % (11.5-14.5); White Blood Count 3.7 K/mm3 (4.5-10.0)
[2024-03-24 08:53] LABS: Hypochromasia 2+; Platelet Estimate Decreased (Adequate); Schistocytes None Seen
[2024-03-24 08:53] LABS: Blood Urea Nitrogen 27 mg/dL (8-26); Carbon Dioxide 24 mmol/L (22-30); Chloride 104 mmol/L (98-109); Estimated Glomerular Filt Rate 54; Glucose 118 mg/dL (70-105); Potassium 4.1 mmol/L (3.5-4.9); Sodium 137 mmol/L (138-146)
[2024-03-24 10:42] LABS: Alanine Aminotransferase 14 U/L (6-35); Alkaline Phosphatase 56 U/L (38-126); Anion Gap 5 mmol/L (4-12); Aspartate Amino Transferase 17 U/L (14-36); Bilirubin,Total 0.3 mg/dL (0.2-1.3); Blood Urea Nitrogen 28 mg/dL (7-17); Calcium 8.8 mg/dL (8.4-10.2); Carbon Dioxide 23 mmol/L (22-30); Chloride 107 mmol/L (98-107); Estimated Glomerular Filt Rate > 60; Glucose 115 mg/dL (65-110); Potassium 4.1 mmol/L (3.4-5.0); Sodium 135 mmol/L (137-145); Uric Acid 5.4 mg/dL (2.5-7.5)
[2024-04-08 13:33] LABS: Basophils Percent Auto 0.5 % (0.2-1.2); Hematocrit 22.3 % (37.0-47.0); Immature Granulocyte Absolute 0.04 K/mm3 (0.00-0.031); Lymphocytes Absolute Auto 0.49 K/mm3 (0.9-3.2); Lymphocytes Percent Auto 12.2 % (18.3-44.2); Mean Corpuscular HGB Conc 31.4 g/dl (32-36); Mean Corpuscular Hemoglobin 35.4 pg (26-34); Mean Corpuscular Volume 112.6 fl (80-100); Mean Platelet Volume 10.5 fl (7.4-10.4); Monocytes Absolute Auto 0.8 K/mm3 (0.1-0.6); Monocytes Percent Auto 20.8 % (2.6-8.5); Neutrophils Absolute Auto 2.6 K/mm3 (1.3-6.7); Neutrophils Percent Auto 65.5 % (45.5-73.1); Nucleated Red Blood Cells Perc 0.5 % (0.0-0.2); Platelet Count Result 97 k/mm3 (150-375); Red Blood Count 1.98 M/mm3 (4.2-5.4); Red Cell Distribution Width 24.7 % (11.5-14.5)
[2024-04-08 14:21] VITALS: BP 135/56; PULSE 85; TEMP 36.4; O2SAT 98
[2024-04-08] MEDS: EPOETIN ALFA EPBX 30000 UNITS SUB-Q (14:35)
[2024-04-24 10:58] LABS: Basophils Absolute Auto 0.1 K/mm3 (0.0-0.1); Basophils Percent Auto 1.3 % (0.2-1.2); Eosinophils Absolute Auto 0.3 K/mm3 (0-0.3); Eosinophils Percent Auto 6.5 % (0-4.4); Hematocrit 29.4 % (37.0-47.0); Hemoglobin 9.2 g/dL (12.0-15.0); Immature Granulocyte Absolute 0.01 K/mm3 (0.00-0.031); Immature Granulocyte Percent A 0.2 % (0-0.5); Lymphocytes Absolute Auto 0.85 K/mm3 (0.9-3.2); Lymphocytes Percent Auto 17.9 % (18.3-44.2); Mean Corpuscular HGB Conc 31.3 g/dl (32-36); Mean Corpuscular Hemoglobin 34.8 pg (26-34); Mean Corpuscular Volume 111.4 fl (80-100); Mean Platelet Volume 10.2 fl (7.4-10.4); Monocytes Absolute Auto 0.6 K/mm3 (0.1-0.6); Monocytes Percent Auto 12.6 % (2.6-8.5); Neutrophils Absolute Auto 2.9 K/mm3 (1.3-6.7); Neutrophils Percent Auto 61.5 % (45.5-73.1); Platelet Count Result 163 k/mm3 (150-375); Red Blood Count 2.64 M/mm3 (4.2-5.4); White Blood Count 4.8 K/mm3 (4.5-10.0)
[2024-04-24 10:59] LABS: Blood Urea Nitrogen 17 mg/dL (8-26); Carbon Dioxide 20 mmol/L (22-30); Chloride 108 mmol/L (98-109); Estimated Glomerular Filt Rate 48; Glucose 99 mg/dL (70-105); Ionized Calcium (POC) 1.18 mmol/L (1.11-1.31); Potassium 4.1 mmol/L (3.5-4.9); Sodium 139 mmol/L (138-146)
[2024-04-24 12:39] LABS: Anion Gap 9 mmol/L (4-12); Blood Urea Nitrogen 19 mg/dL (7-17); Calcium 8.8 mg/dL (8.4-10.2); Carbon Dioxide 21 mmol/L (22-30); Chloride 108 mmol/L (98-107); Estimated Glomerular Filt Rate 54; Glucose 96 mg/dL (65-110); Potassium 4.1 mmol/L (3.4-5.0); Sodium 138 mmol/L (137-145)
[2024-04-29 12:39] LABS: Basophils Absolute Auto 0.1 K/mm3 (0.0-0.1); Basophils Percent Auto 0.5 % (0.2-1.2); Eosinophils Absolute Auto 0.3 K/mm3 (0-0.3); Eosinophils Percent Auto 2.8 % (0-4.4); Hematocrit 28.3 % (37.0-47.0); Hemoglobin 8.9 g/dL (12.0-15.0); Immature Granulocyte Absolute 0.03 K/mm3 (0.00-0.031); Immature Granulocyte Percent A 0.3 % (0-0.5); Lymphocytes Absolute Auto 1.28 K/mm3 (0.9-3.2); Lymphocytes Percent Auto 13.1 % (18.3-44.2); Mean Corpuscular HGB Conc 31.4 g/dl (32-36); Mean Corpuscular Hemoglobin 34.9 pg (26-34); Mean Platelet Volume 9.8 fl (7.4-10.4); Monocytes Absolute Auto 0.9 K/mm3 (0.1-0.6); Monocytes Percent Auto 8.7 % (2.6-8.5); Neutrophils Absolute Auto 7.3 K/mm3 (1.3-6.7); Neutrophils Percent Auto 74.6 % (45.5-73.1); Platelet Count Result 149 k/mm3 (150-375); Red Blood Count 2.55 M/mm3 (4.2-5.4); White Blood Count 9.8 K/mm3 (4.5-10.0)
[2024-04-29 13:21] VITALS: BP 123/73; PULSE 78; TEMP 36.3; O2SAT 97
[2024-04-29] MEDS: EPOETIN ALFA EPBX 30000 UNITS SUB-Q (13:30)
[2024-05-20 13:46] LABS: Basophils Percent Auto 0.4 % (0.2-1.2); Eosinophils Absolute Auto 0.1 K/mm3 (0-0.3); Eosinophils Percent Auto 1.8 % (0-4.4); Hematocrit 29.8 % (37.0-47.0); Hemoglobin 9.3 g/dL (12.0-15.0); Immature Granulocyte Absolute 0.01 K/mm3 (0.00-0.031); Immature Granulocyte Percent A 0.1 % (0-0.5); Lymphocytes Absolute Auto 2.31 K/mm3 (0.9-3.2); Lymphocytes Percent Auto 33.7 % (18.3-44.2); Mean Corpuscular HGB Conc 31.2 g/dl (32-36); Mean Corpuscular Hemoglobin 36.2 pg (26-34); Mean Platelet Volume 12.2 fl (7.4-10.4); Monocytes Absolute Auto 0.7 K/mm3 (0.1-0.6); Monocytes Percent Auto 10.5 % (2.6-8.5); Neutrophils Absolute Auto 3.7 K/mm3 (1.3-6.7); Neutrophils Percent Auto 53.5 % (45.5-73.1); Platelet Count Result 82 k/mm3 (150-375); Red Blood Count 2.57 M/mm3 (4.2-5.4); Red Cell Distribution Width 20.7 % (11.5-14.5); White Blood Count 6.9 K/mm3 (4.5-10.0)
[2024-05-20 13:50] LABS: Blood Urea Nitrogen 23 mg/dL (8-26); Carbon Dioxide 21 mmol/L (22-30); Chloride 106 mmol/L (98-109); Estimated Glomerular Filt Rate 34; Glucose 133 mg/dL (70-105); Ionized Calcium (POC) 1.19 mmol/L (1.11-1.31); Potassium 4.3 mmol/L (3.5-4.9); Sodium 139 mmol/L (138-146)
--- NOTE | 2024-05-20 15:30 | PC.NURSE ---
Per Dr Heaton, patient to go to the emergency room. Patient passed out at home and became very dizzy coming into the infusion center. Unable to give injection since the patient is going to the emergency room.
[2024-05-20 16:44] LABS: Alanine Aminotransferase 94 U/L (6-35); Albumin Level 3.4 g/dL (3.5-5.1); Alkaline Phosphatase 154 U/L (38-126); Anion Gap 12 mmol/L (4-12); Aspartate Amino Transferase 44 U/L (14-36); Bilirubin,Total 0.6 mg/dL (0.2-1.3); Blood Urea Nitrogen 25 mg/dL (7-17); Carbon Dioxide 20 mmol/L (22-30); Chloride 104 mmol/L (98-107); Estimated Glomerular Filt Rate 36; Glucose 130 mg/dL (65-110); Potassium 4.2 mmol/L (3.4-5.0); Sodium 136 mmol/L (137-145)
[2024-06-10 13:41] LABS: Basophils Absolute Auto 0.1 K/mm3 (0.0-0.1); Eosinophils Absolute Auto 0.2 K/mm3 (0-0.3); Eosinophils Percent Auto 3.4 % (0-4.4); Hematocrit 30.6 % (37.0-47.0); Hemoglobin 9.6 g/dL (12.0-15.0); Immature Granulocyte Absolute 0.24 K/mm3 (0.00-0.031); Immature Granulocyte Percent A 4.8 % (0-0.5); Lymphocytes Absolute Auto 2.02 K/mm3 (0.9-3.2); Lymphocytes Percent Auto 40.5 % (18.3-44.2); Mean Corpuscular HGB Conc 31.4 g/dl (32-36); Mean Corpuscular Hemoglobin 36.2 pg (26-34); Mean Corpuscular Volume 115.5 fl (80-100); Mean Platelet Volume 10.5 fl (7.4-10.4); Monocytes Absolute Auto 0.5 K/mm3 (0.1-0.6); Monocytes Percent Auto 9.6 % (2.6-8.5); Neutrophils Percent Auto 40.7 % (45.5-73.1); Platelet Count Result 98 k/mm3 (150-375); Red Blood Count 2.65 M/mm3 (4.2-5.4); Red Cell Distribution Width 15.9 % (11.5-14.5)
[2024-06-10 13:45] LABS: Blood Urea Nitrogen 7 mg/dL (8-26); Carbon Dioxide 25 mmol/L (22-30); Chloride 104 mmol/L (98-109); Estimated Glomerular Filt Rate > 60; Glucose 132 mg/dL (70-105); Ionized Calcium (POC) 1.18 mmol/L (1.11-1.31); Sodium 139 mmol/L (138-146)
[2024-06-10 13:52] VITALS: BP 154/69; PULSE 53; TEMP 36.4; O2SAT 96
[2024-06-10] MEDS: EPOETIN ALFA EPBX 30000 UNITS SUB-Q (14:06)
[2024-06-10 16:59] LABS: Alanine Aminotransferase 17 U/L (6-35); Albumin Level 3.4 g/dL (3.5-5.1); Alkaline Phosphatase 86 U/L (38-126); Anion Gap 6 mmol/L (4-12); Aspartate Amino Transferase 33 U/L (14-36); Bilirubin,Total 0.4 mg/dL (0.2-1.3); Blood Urea Nitrogen 9 mg/dL (7-17); Calcium 8.9 mg/dL (8.4-10.2); Carbon Dioxide 26 mmol/L (22-30); Chloride 104 mmol/L (98-107); Estimated Glomerular Filt Rate > 60; Glucose 128 mg/dL (65-110); Sodium 136 mmol/L (137-145)
[2024-06-10 17:05] LABS: Iron 102 ug/dL (37-170)
[2024-06-10 17:15] LABS: Percent Iron Saturation 32 % (20-50)
[2024-06-10 18:05] LABS: Folic Acid 7.5 ng/mL (2.76->20); Vitamin B12 > 1000.0 pg/mL (239-931)
[2024-07-01 13:41] LABS: Hematocrit 30.9 % (37.0-47.0); Hemoglobin 9.8 g/dL (12.0-15.0); Mean Corpuscular HGB Conc 31.7 g/dl (32-36); Mean Corpuscular Hemoglobin 36.2 pg (26-34); Mean Platelet Volume 10.3 fl (7.4-10.4); Platelet Count Result 113 k/mm3 (150-375); Red Blood Count 2.71 M/mm3 (4.2-5.4); Red Cell Distribution Width 13.8 % (11.5-14.5); White Blood Count 3.8 K/mm3 (4.5-10.0)
[2024-07-01 13:50] LABS: Band Neutrophils Percent 3 % (0-6); Basophils Absolute Manual 0.03 K/mm3 (0.0-0.1); Basophils Percent Manual 1 % (0-1); Eosinophils Absolute Manual 0.03 K/mm3 (0.02-0.50); Eosinophils Percent Manual 1 % (0-4); Lymphocytes Absolute Manual 2.16 K/mm3 (1.1-4.5); Metamyelocytes Percent 2 %; Monocytes Absolute Manual 0.15 K/mm3 (0.1-0.90); Monocytes Percent Manual 4 % (3-9); Neutrophils Absolute Manual 1.33 K/mm3 (1.7-7.2); Neutrophils Percent Manual 32 % (46-73); Platelet Estimate Decreased (Adequate); Total Cells Counted 100
[2024-07-01 13:51] LABS: Anisocytosis 1+; Hypochromasia 1+; Microcytosis 1+ (NORMAL); Schistocytes None Seen
[2024-07-01 14:10] VITALS: BP 125/54; PULSE 66; O2SAT 95
[2024-07-01] MEDS: EPOETIN ALFA EPBX 30000 UNITS SUB-Q (14:19)
[2024-07-22 13:26] LABS: Basophils Percent Auto 0.9 % (0.2-1.2); Eosinophils Absolute Auto 0.4 K/mm3 (0-0.3); Eosinophils Percent Auto 7.8 % (0-4.4); Hematocrit 29.8 % (37.0-47.0); Hemoglobin 9.5 g/dL (12.0-15.0); Immature Granulocyte Absolute 0.01 K/mm3 (0.00-0.031); Immature Granulocyte Percent A 0.2 % (0-0.5); Lymphocytes Absolute Auto 1.99 K/mm3 (0.9-3.2); Lymphocytes Percent Auto 43.2 % (18.3-44.2); Mean Corpuscular HGB Conc 31.9 g/dl (32-36); Mean Corpuscular Hemoglobin 36.4 pg (26-34); Mean Corpuscular Volume 114.2 fl (80-100); Mean Platelet Volume 9.9 fl (7.4-10.4); Monocytes Absolute Auto 0.5 K/mm3 (0.1-0.6); Monocytes Percent Auto 9.8 % (2.6-8.5); Neutrophils Absolute Auto 1.8 K/mm3 (1.3-6.7); Neutrophils Percent Auto 38.1 % (45.5-73.1); Platelet Count Result 121 k/mm3 (150-375); Red Blood Count 2.61 M/mm3 (4.2-5.4); White Blood Count 4.6 K/mm3 (4.5-10.0)
[2024-07-22] MEDS: HEPARIN SODIUM LOCK FLUSH 500 UNITS/5 ML SYRINGE IV PUSH (13:29)
[2024-07-22 13:32] VITALS: BP 128/53; PULSE 58; TEMP 36.3; O2SAT 97
[2024-07-22] MEDS: EPOETIN ALFA EPBX 30000 UNITS SUB-Q (13:41)
[2024-08-12 09:01] LABS: Basophils Absolute Auto 0.1 K/mm3 (0.0-0.1); Eosinophils Absolute Auto 0.4 K/mm3 (0-0.3); Eosinophils Percent Auto 7.9 % (0-4.4); Hematocrit 29.8 % (37.0-47.0); Hemoglobin 9.5 g/dL (12.0-15.0); Immature Granulocyte Absolute 0.02 K/mm3 (0.00-0.031); Immature Granulocyte Percent A 0.4 % (0-0.5); Immature Platelet Fraction Pct 5.8 % (0.9-11.2); Lymphocytes Absolute Auto 1.23 K/mm3 (0.9-3.2); Lymphocytes Percent Auto 25.5 % (18.3-44.2); Mean Corpuscular HGB Conc 31.9 g/dl (32-36); Mean Corpuscular Hemoglobin 36.5 pg (26-34); Mean Corpuscular Volume 114.6 fl (80-100); Mean Platelet Volume 11.5 fl (7.4-10.4); Monocytes Absolute Auto 0.5 K/mm3 (0.1-0.6); Monocytes Percent Auto 9.5 % (2.6-8.5); Neutrophils Absolute Auto 2.7 K/mm3 (1.3-6.7); Neutrophils Percent Auto 55.7 % (45.5-73.1); Platelet Count Result 112 k/mm3 (150-375); Red Cell Distribution Width 13.8 % (11.5-14.5); White Blood Count 4.8 K/mm3 (4.5-10.0)
[2024-08-12 09:03] LABS: Blood Urea Nitrogen 16 mg/dL (8-26); Carbon Dioxide 25 mmol/L (22-30); Chloride 106 mmol/L (98-109); Estimated Glomerular Filt Rate > 60; Glucose 76 mg/dL (70-105); Ionized Calcium (POC) 1.21 mmol/L (1.11-1.31); Potassium 4.4 mmol/L (3.5-4.9); Sodium 139 mmol/L (138-146)
[2024-08-12 10:04] VITALS: BP 151/70; PULSE 62; TEMP 36; O2SAT 99
[2024-08-12] MEDS: EPOETIN ALFA EPBX 30000 UNITS SUB-Q (10:14)
[2024-08-12 10:19] LABS: Alanine Aminotransferase 10 U/L (6-35); Albumin Level 3.2 g/dL (3.5-5.1); Alkaline Phosphatase 88 U/L (38-126); Anion Gap 3 mmol/L (4-12); Aspartate Amino Transferase 20 U/L (14-36); Bilirubin,Total 0.6 mg/dL (0.2-1.3); Blood Urea Nitrogen 17 mg/dL (7-17); Calcium 8.7 mg/dL (8.4-10.2); Carbon Dioxide 28 mmol/L (22-30); Chloride 106 mmol/L (98-107); Estimated Glomerular Filt Rate > 60; Glucose 78 mg/dL (65-110); Potassium 4.3 mmol/L (3.4-5.0); Sodium 137 mmol/L (137-145)
[2024-09-02 10:40] LABS: Basophils Absolute Auto 0.1 K/mm3 (0.0-0.1); Basophils Percent Auto 1.4 % (0.2-1.2); Eosinophils Absolute Auto 0.4 K/mm3 (0-0.3); Eosinophils Percent Auto 9.6 % (0-4.4); Hematocrit 32.6 % (37.0-47.0); Hemoglobin 10.1 g/dL (12.0-15.0); Immature Granulocyte Absolute 0.06 K/mm3 (0.00-0.031); Immature Granulocyte Percent A 1.7 % (0-0.5); Immature Platelet Fraction Pct 7.4 % (0.9-11.2); Lymphocytes Percent Auto 46.8 % (18.3-44.2); Mean Corpuscular Hemoglobin 36.1 pg (26-34); Mean Corpuscular Volume 116.4 fl (80-100); Mean Platelet Volume 11.4 fl (7.4-10.4); Monocytes Absolute Auto 0.5 K/mm3 (0.1-0.6); Monocytes Percent Auto 13.2 % (2.6-8.5); Neutrophils Percent Auto 27.3 % (45.5-73.1); Platelet Count Result 111 k/mm3 (150-375); Red Cell Distribution Width 14.4 % (11.5-14.5); White Blood Count 3.6 K/mm3 (4.5-10.0)
--- NOTE | 2024-09-02 10:44 | PC.NURSE ---
Patient's treatment is cancelled, hemoglobulin 10.1.
[2024-09-23 10:21] LABS: Basophils Percent Auto 0.7 % (0.2-1.2); Eosinophils Absolute Auto 0.1 K/mm3 (0-0.3); Eosinophils Percent Auto 3.7 % (0-4.4); Hematocrit 34.3 % (37.0-47.0); Immature Platelet Fraction Pct 7.3 % (0.9-11.2); Lymphocytes Absolute Auto 1.98 K/mm3 (0.9-3.2); Lymphocytes Percent Auto 65.8 % (18.3-44.2); Mean Corpuscular HGB Conc 32.1 g/dl (32-36); Mean Corpuscular Hemoglobin 36.2 pg (26-34); Mean Corpuscular Volume 112.8 fl (80-100); Mean Platelet Volume 11.1 fl (7.4-10.4); Monocytes Absolute Auto 0.6 K/mm3 (0.1-0.6); Monocytes Percent Auto 20.9 % (2.6-8.5); Neutrophils Absolute Auto 0.3 K/mm3 (1.3-6.7); Neutrophils Percent Auto 8.9 % (45.5-73.1); Platelet Count Result 116 k/mm3 (150-375); Red Blood Count 3.04 M/mm3 (4.2-5.4); Red Cell Distribution Width 14.2 % (11.5-14.5)
--- NOTE | 2024-09-23 10:33 | PC.NURSE ---
Patient appointment cancelled, hemoglobulin 11.
== END 2024-10-12 16:19 ==
LOC: AMCINF 10:30
PROVIDERS: Visit Provider Internal Medicine Hematology & Oncology
DX: C83.30 Diffuse large B-cell lymphoma, unspecified site (principal); D64.81 Anemia due to antineoplastic chemotherapy; F41.9 Anxiety disorder, unspecified; R42 Dizziness and giddiness
CPT/HCPCS: 36415; 80047; 80048; 80053; 82607; 82728; 82746; 83540; 83550; 84550; 85025; 85055; 86850; 86900; 86901; 86920; 86923; 87340; 96367; 96368; 96372; 96375; 96411; 96413; 96415; 96417; A9270; J1100; J1200; J1453; J2469; J7030; J7050; J9000; J9070; J9075; J9370; Q5106; Q5108; Q5123; Q5130